=== PATIENT | female | born 1965 | race Caucasian/White ===

== ENCOUNTER 2020-06-03 15:49 | Outpatient (RCR) | payer MEDICARE, SELFPAY ==
[2018-05-27 17:47] VITALS: BMI 31.4
[2020-06-03] MEDS: COVID-19 VACC, MRNA(PFIZER)/PF 30 MCG/0.3 ML SYRINGE IM (13:52)
[2020-06-24] MEDS: COVID-19 VACC, MRNA(PFIZER)/PF 30 MCG/0.3 ML SYRINGE IM (12:35)
== END 2020-06-03 23:59 ==
LOC: IMMUN 15:49
PROVIDERS: PCP Family Medicine; Referring Provider Family Medicine; Visit Provider Family Medicine
DX: Z23 Encounter for immunization (principal)
CPT/HCPCS: 0001A; 0002A; 91300

== ENCOUNTER → 2020-06-04 12:02 | Outpatient (CLI) | payer SELFPAY ==
[2018-05-27 17:47] VITALS: BMI 31.4
[2020-06-04 10:19] LABS: Absolute Lymphocyte Count 1.27 X10^3/uL (0.83-4.51); Absolute Neutrophil Count 1.9 X10^3/uL (2.0-7.7); Basophil# 0.03 X10^3/uL; Basophil% 0.8 % (0-1); Eosinophil# 0.22 X10^3/uL; Eosinophils% 5.9 % (0-5); Hematocrit 38.1 % (37-47); Hemoglobin 12.3 g/dL (12.0-15.0); Lymphocyte # 1.27 X10^3/ul (4.0); Lymphocyte % 33.9 % (19-41); Mean Corp Hgb Conc 32.3 g/dL (32-36); Mean Corpuscular Volume 89.9 fL (81-99); Mean Platelet Vol. 9.3 fl (6.2-12.0); Monocyte# 0.34 X10^3/uL; Monocyte% 9.1 % (0-10); NRBC Flagged by Analyzer 0 % (0-5); Neutrophil # 1.88 X10^3/uL (2.7-7.7); Platelet Count 356 K/mm3 (150-450); RBC Distribution Width CV 12.5 % (11.6-14.6); RBC Distribution Width SD 41.4 fl (35.1-43.9); Red Blood Count 4.24 M/mm3 (4.2-5.4); White Blood Count 3.8 K/mm3 (4.4-11.0)
[2020-06-04 11:00] LABS: ALB/GLOB Ratio 0.9 RATIO (0.9-2.4); AST(SGOT) 29 U/L (15-37); Alanine Aminotransfer ALT/SGPT 45 U/L (13-56); Albumin, Serum 3.6 g/dL (3.2-5.0); Alkaline Phosphatase 70 U/L (45-117); Anion Gap 7 (5-15); BUN 11 mg/dL (7-18); BUN/Creat Ratio 15.8 RATIO (10-20); Calcium,Total 8.9 mg/dL (8.5-10.1); Chloride 106 mmol/L (98-107); Cholesterol 223 mg/dL (200); EST Glomerular Filtration Rate 93 mL/min (>60); Est Glom Filt Rate - Afr Amer 112 mL/min (>60); Globulin 3.8 g/dL (2.2-4.2); Glucose 89 mg/dL (74-106); High Density Lipoprotein 93 mg/dL; Potassium 3.8 mmol/L (3.5-5.1); Protein, Total 7.4 g/dL (6.4-8.2); Sodium Level 141 mmol/L (136-145); Triglycerides 84 mg/dL; Very Low Density Lipoprotein 17 mg/dL (5-40)
--- NOTE | 2020-06-04 12:07 | BI_ITS ---
MAMMOGRAPHY - BILATERAL SCREENING REASON FOR EXAM: Female, 55 years old. Routine annual screening examination. PERTINENT HISTORY: Non-contributory. TECHNIQUE: Digital bilateral breast mirta (3D mammographic acquisition) in the CC and MLO projections. 2-D mediolateral oblique (MLO) and craniocaudad (CC) views of both breasts were obtained. CAD: Full Field Digital Mammography with Computer Added Detection was performed. COMPARISON: Comparison is made with prior study dated 03/08/2017 and 01/29/2015. FINDINGS: Breast Composition: There are scattered areas of fibroglandular density. There are no dominant masses or suspicious calcifications. No other significant abnormalities are identified. There has been no significant change since the prior study. BI/SCRN MAMM (CAD)W/MIRTA BILAT IMPRESSION: Stable bilateral screening mammogram. Yearly follow-up mammogram recommended. (A) ASSESSMENT CATEGORY: BIRADS Category 1: Negative. A letter regarding these results will be sent to the patient by the facility within 30 days. Approximately 10% of breast cancers are not detected by mammography. A normal mammogram should not delay biopsy of a clinically suspicious abnormality. [id number] Electronically Signed: Donnell Sales MD at 13:46 EDT , Service support ,
== END ==
PROVIDERS: PCP Family Medicine; Referring Provider Family Medicine; Visit Provider Family Medicine
DX: Z12.31 Encounter for screening mammogram for malignant neoplasm of breast (principal); Z00.00 Encounter for general adult medical examination without abnormal findings
CPT/HCPCS: 36415; 77063; 77067; 80053; 80061; 85025

== ENCOUNTER 2020-08-05 15:00 | Outpatient (RCR) | payer SELFPAY ==
[2018-05-27 17:47] VITALS: BMI 31.4
== END 2020-08-16 23:59 ==
LOC: NS 15:00
PROVIDERS: PCP Family Medicine
DX: E66.9 Obesity, unspecified (principal)
CPT/HCPCS: 97802; 97803

== ENCOUNTER 2020-09-07 14:00 | Outpatient (RCR) | payer SELFPAY ==
[2018-05-27 17:47] VITALS: BMI 31.4
== END 2020-09-15 23:59 ==
LOC: NS 14:00
PROVIDERS: PCP Family Medicine
DX: Z71.3 Dietary counseling and surveillance (principal)
CPT/HCPCS: 97803

== ENCOUNTER 2020-09-21 08:09 | Outpatient (RCR) | payer SELFPAY ==
[2020-09-13 11:30] VITALS: BMI 31.4
== END 2020-09-21 23:59 | disposition home or self-care (01) ==
LOC: NS 08:09
PROVIDERS: PCP Family Medicine
DX: Z71.3 Dietary counseling and surveillance (principal)
CPT/HCPCS: 97803

== ENCOUNTER 2022-03-09 08:29 | Emergency (ER) | payer SELFPAY ==
[2022-03-09 08:30] VITALS: BP 137/94; PULSE 86; RESP 18; TEMP 37.4; O2SAT 96; BMI 32.4
--- NOTE | 2022-03-09 09:15 | ED.VIS.GI ---
HPI HPI - GI History of Present Illness Chief Complaint: Nausea/Vomiting Detail of Chief Complaint: Nausea, vomiting and diarrhea today. URI symptoms for 1 to 2 weeks. Informant: patient and spouse/S.O. Nausea/Vomiting/Emesis GI Symptom: Positive for Nausea and Vomiting Onset: Today and Yesterday Severity: Mild Diarrhea/Melena/Hematochezia GI Symptom: Positive for Diarrhea; Negative for Melena or Hematochezia Associated Symptoms Associated Symptoms: Negative for Dysuria or Frequency Narrative Narrative: This is-year-old female no seen past medical history. No new medications. No recent hospitalization. 7 she had URI symptoms for last 2 weeks. She has developed a fever nausea vomiting diarrhea the last 24 to 36 hours. No significant abdominal pain. No dysuria. States when she gets this way she often gets dehydrated so they came in. Prior similar symptoms: Yes Recent Illness/Hospitalization: No PFSH PFSH Medical History Allergic conjunctivitis Contact dermatitis due to poison sonya history of broken ankle Home Medications ondansetron 4 mg disintegrating tablet 4 mg PO Q6H PRN nausea and vomiting #7 tabs 03/09/22 [Rx Last Taken Unknown] Allergy/AdvReac Type Severity Reaction Status Date / Time No Known Allergies Allergy Unverified 03/09/22 08:29 Social History Smoking Status: Never smoker alcohol intake: never ROS ROS ED ROS Narrative Nausea, vomiting and diarrhea. URI symptoms. Review of Systems ROS Unobtainable: Denies due to encephalopathy Constitutional Constitutional ED: Reports chills and fever(s) ENT ENT ED: Denies ear pain Cardiovascular Cardiovascular: Denies chest pain or palpitations Respiratory/Chest Respiratory/Chest: Reports cough; Denies dyspnea Gastrointestinal Gastrointestinal: Reports diarrhea, nausea and vomiting; Denies abdominal pain, constipation or melena Genitourinary Genitourinary ED: Denies dysuria or hematuria Musculoskeletal Musculoskeletal: Denies arthralgias Integumentary Denies abscess Neurologic Neurologic: Denies headache(s) Psychiatric Psychiatric: Denies anxiety Endocrine Endocrinology: Denies polydipsia Hematologic/Lymphatic Hematologic/Lymphatic: Denies easy bleeding Allergic/Immunologic Allergic/Immunologic ED: Denies mouth swelling or tongue swelling EXAM Physical Exam Narrative Exam Narrative: 69 female no acute distress. Vital signs stable. Temperature nine 9.4. She does not look septic or toxic. Pulse ox 96% on room air no hypoxia. H EENT exam unremarkable. Neck nontender no lymphadenopathy. Lungs clear to auscultation bilaterally. Heart regular rhythm rate about 85 no murmur. Abdomen soft nontender normal bowel sounds no peritoneal signs. No distention. Moving all 4 extremities. Calves are nontender without edema. Neurologically she is awake and alert. Const Vital Signs: 03/09/22 08:30 03/09/22 10:29 Temperature 99.4 F H Temperature Source Temporal Pulse Rate 86 72 Respiratory Rate 18 18 Blood Pressure 137/94 H 113/70 Blood Pressure Mean 108 84 Pulse Ox 96 95 Oxygen Delivery Method Room Air Room Air Positive well nourished and well developed; Negative for cachectic, contractures or unkempt General Appearance ED: well developed and NAD; Negative for unkempt, cachectic, contractures or pallor Nutritional Appearance: Negative for cachectic HEENT Reports moist mucous membranes; Denies dry mucous membranes normocephalic; Negative for atraumatic, trauma or tenderness Mouth ED: No dry mucous membranes Mouth: No dry mucous membranes Eyes PERRL and EOMs intact bilaterally General Eye ED: Negative for pale conjunctiva or scleral icterus Neck no lymphadenopathy, supple and no JVD General: Negative for tenderness Carotids: Negative for other Lymph Lymphatic: Negative for other Resp normal respiratory effort and clear to auscultation bilaterally Effort and Inspection: Negative for respiratory distress or retractions Auscultation: Negative for rales, rhonchi or wheezes Cardio regular rate, regular rhythm, S1 normal heart sound, S2 normal heart sound and no murmurs Rate: Negative for bradycardia or tachycardic Rhythm: Negative for abnormal rhythm GI non-tender, non-distended and no masses Inspection: Negative for abdominal distention Auscultation: normoactive bowel sounds Palpation: soft; Negative for tender or guarding Back/Spine no CVA tenderness General Back: Negative for CVA tenderness Cervical Spine: Negative for cervical spine tenderness Thoracic Spine / Upper Back: Negative for thoracic spinal tenderness Lumbar Spine / Lower Back: Negative for lumbar spinal tenderness Coccyx: Negative for other Extremity full ROM General Extremety ED: Negative for edema or tenderness General Extremity: Negative for edema Neuro CN's II-XII intact bilaterally and moves all extremities Sensorium / Orientation: alert, oriented to person, oriented to place and oriented to time; Negative for orientation impaired, confused, lethargic or stuporous Motor Exam: strength 5/5 throughout Psych Appearance: Negative for unkempt Attitude: No agitated Mood & Affect: Negative for depressed, anxious or tearful Skin no wounds General Skin Exam: Negative for jaundice or pallor Lesions: no lesions Rashes: no rashes Trauma: Negative for abrasion Nails: Negative for discolored MDM MDM MDM Narrative Medical decision making narrative: 56-year-old suspect viral syndrome possibly influenza. Nausea, vomiting diarrhea. Treated with IV fluids. IV Zofran for nausea. IV Toradol for her headache. Screening labs and an influenza test will be obtained. Her exam is pretty benign. Repeat exam at 12:40 PM patient doing well. Positive p.o. fluids. Feels improved after IV Zofran and IV fluids. She and her are currently discharged home. I went over the test results with them. A prescription for Zofran to be sent to her pharmacy. Lab Data Attestation: I reviewed the patient's lab results. Lab results narrative: Influenza A positive. CBC shows white count 3.3. H&H of 13 and 39. Electrolytes show a gap of 4 normal BUN of 7 creatinine 0.77 glucose 129. Labs: Laboratory Results - last 24 hr 03/09/22 03/09/22 09:25 09:25 WBC 3.3 L RBC 4.47 Hgb 13.0 Hct 39.7 MCV 88.8 MCH 29.1 MCHC 32.7 RDW Std Deviation 40.5 RDW Coeff of Agnieszka 12.4 Plt Count 253 MPV 8.8 Immature Gran % (Auto) 0.000 Neut % (Auto) 82.3 H Lymph % (Auto) 9.[address] [place] % (Auto) 8.1 Eos % (Auto) 0.0 Baso % (Auto) 0.3 Absolute Neuts (auto) 2.7 Absolute Lymphs (auto) 0.31 L Nucleated RBC % 0 Sodium 139 Potassium 3.7 Chloride 108 H Carbon Dioxide 27.0 Anion Gap 4 L BUN 7 Creatinine 0.77 Estim Creat Clear Calc 75.46 Est GFR (MDRD) Af Amer 99 Est GFR (MDRD) Non-Af 82 BUN/Creatinine Ratio 9.1 L Glucose 129 H Calcium 8.9 Discharge Plan Triage Chief Complaint: Nausea/Vomiting ED Provider: Bernardo Torres Dx/Rx/DC Orders Clinical Impression: Influenza A, Nausea & vomiting Instructions: ED Influenza (Adult) Prescriptions: New ondansetron 4 mg tablet,disintegrating 4 mg PO Q6H PRN (Reason: nausea and vomiting) Qty: 7 0RF Primary Care Provider: Johan Armstrong Referrals: Johan Armstrong MD [Primary Care Provider] - 1 Week if not improving Activity Restrictions/Additional Instructions: Plenty of fluids and rest. Water, 7-Up and Gatorade. Increase your diet slowly as tolerated. Zofran as needed for nausea you may dissolve on your tongue or swallow it. If you do not need to take it at all. Tylenol as needed for fever and body aches. Follow-up with your doctor if not improving or return if worse. Disposition Disposition: Home, Self Care
[2022-03-09] MEDS: 0.9% Normal Saline 1,000 ML 1000 ML IV (09:31)
[2022-03-09] MEDS: Ondansetron 4 MG/2 ML Vial IV (09:31)
[2022-03-09] MEDS: Ketorolac 30 MG/ML Syringe IV (09:31)
[2022-03-09 09:35] LABS: Absolute Lymphocyte Count 0.31 X10^3/uL (0.83-4.51); Absolute Neutrophil Count 2.7 X10^3/uL (2.0-7.7); Basophil# 0.01 X10^3/uL; Basophil% 0.3 % (0-1); Hematocrit 39.7 % (37-47); Lymphocyte # 0.31 X10^3/ul (0.83-4.51); Lymphocyte % 9.3 % (19-41); Mean Corp Hgb Conc 32.7 g/dL (32-36); Mean Corpuscular Hgb 29.1 pg (27.0-32.0); Mean Corpuscular Volume 88.8 fL (81-99); Mean Platelet Vol. 8.8 fl (6.2-12.0); Monocyte# 0.27 X10^3/uL; Monocyte% 8.1 % (0-10); NRBC Flagged by Analyzer 0 % (0-5); Neutrophil # 2.74 X10^3/uL (2.7-7.7); Neutrophil % 82.3 % (47-70); POSITIVE DIFFERENTIAL YES; Platelet Count 253 K/mm3 (150-450); RBC Distribution Width CV 12.4 % (11.6-14.6); RBC Distribution Width SD 40.5 fl (35.1-43.9); Red Blood Count 4.47 M/mm3 (4.2-5.4); White Blood Count 3.3 K/mm3 (4.4-11.0)
[2022-03-09 09:42] LABS: Differential Indicated SCAN CRITERIA MET
[2022-03-09 09:44] LABS: Anion Gap 4 (5-15); BUN 7 mg/dL (7-18); BUN/Creat Ratio 9.1 RATIO (10-20); Calcium,Total 8.9 mg/dL (8.5-10.1); Chloride 108 mmol/L (98-107); Creatinine, Serum 0.77 mg/dL (0.55-1.02); EST Glomerular Filtration Rate 82 mL/min (>60); Est Glom Filt Rate - Afr Amer 99 mL/min (>60); Estimated Creatinine Clearance 75.46 ml/min; Glucose 129 mg/dL (74-106); Potassium 3.7 mmol/L (3.5-5.1); Sodium Level 139 mmol/L (136-145)
[2022-03-09 10:29] VITALS: BP 113/70; PULSE 72; RESP 18; O2SAT 95
[2022-03-09 12:00] VITALS: BP 112/71; PULSE 73; RESP 16; O2SAT 96
[2022-03-09 12:47] VITALS: BP 119/75; PULSE 77; RESP 16; TEMP 36.8; O2SAT 96
[2022-03-10 14:08] LABS: Pathologist Review Reviewed
== END 2022-03-09 12:53 | disposition home or self-care (01) ==
PROVIDERS: Emergency Provider Emergency Medicine; PCP Family Medicine; Visit Provider Emergency Medicine
DX: J10.2 Influenza due to other identified influenza virus with gastrointestinal manifestations (principal)
CPT/HCPCS: 80048; 85025; 87804; 96361; 96374; 96375; 99282; J7030; A4216; J2405

== ENCOUNTER 2023-04-06 19:57 | Emergency (ER) | payer SELFPAY ==
[2023-04-06 19:59] VITALS: BP 130/74; PULSE 83; RESP 28; TEMP 36.3; O2SAT 100
[2023-04-06 20:01] VITALS: BP 130/74; PULSE 83; RESP 28; TEMP 36.3; O2SAT 100
[2023-04-06 20:10] VITALS: BMI 31.6
--- NOTE | 2023-04-06 20:28 | EX.ED.VIS.UR ---
HPI HPI - URI History of Present Illness Chief Complaint: Nausea/Vomiting Narrative Narrative: 57-year-old female presenting with nausea, vomiting, body aches, chills. Patient states she was around her sick grandson 3 days ago and picked him up to drop him off at the family's house because he had flulike symptoms. Patient developed her symptoms today. She has been vomiting today. She states she is retched so hard that she hurt her lower back. She has a history of back problems in the past. Denies any direct trauma. No loss of bladder or bowel control. No saddle anesthesia/paresthesia. Patient has not had a known fever at home. Patient has tried Zofran at home but unable to hold it down. This is not helping her vomiting. Her grandson had not been tested for anything and recovered without testing. [facility] Medical History Allergic conjunctivitis Contact dermatitis due to poison sonya history of broken ankle Home Medications benzonatate 100 mg capsule 200 mg (2 x 100 mg) PO TID PRN cough #30 caps 05/09/22 [Rx Last Taken Unknown] cyclobenzaprine 10 mg tablet 10 mg PO TID PRN Muscle Spasm #20 TABLETS 04/06/23 [Rx Last Taken Unknown] dicyclomine 10 mg capsule 10 mg PO TID PRN abdominal pain #20 caps 04/06/23 [Rx Last Taken Unknown] ondansetron 4 mg disintegrating tablet 4 mg PO Q8H PRN PRN Nausea #14 tabs 04/06/23 [Rx Last Taken Unknown] promethazine 25 mg tablet 25 mg PO TID PRN nausea and vomiting #30 tabs 04/06/23 [Rx Last Taken Unknown] Allergy/AdvReac Type Severity Reaction Status Date / Time No Known Allergies Allergy Verified 04/06/23 19:58 Surgical History History of cholecystectomy Social History Smoking Status: Never smoker alcohol intake: never EXAM Physical Exam Const Vital Signs: 04/06/23 19:59 04/06/23 20:01 Temperature 97.4 F L 97.4 F L Temperature Source Temporal Temporal Pulse Rate 83 83 Respiratory Rate 28 H 28 H Blood Pressure 130/74 H 130/74 H Blood Pressure Mean 92 92 Pulse Ox 100 100 Oxygen Delivery Method Room Air Room Air Positive well nourished General Appearance ED: Negative for pallor HEENT Reports normocephalic Eyes PERRL and EOMs intact bilaterally Chest Wall inspection of chest normal and palpation of chest normal Resp normal respiratory effort and clear to auscultation bilaterally Auscultation: Negative for rales, rhonchi or wheezes Cardio regular rate and regular rhythm GI normal to inspection, nondistended, normoactive bowel sounds and non-distended Auscultation: normoactive bowel sounds Palpation: soft Narrative: Deferred Back/Spine Back/Spine Narrative: Left lumbar paraspinal musculature tenderness. No midline spinal deformity, tenderness, step-off. Extremity General Extremety ED: Negative for edema or tenderness General Extremity: Negative for edema Neuro oriented x3 and CN's II-XII intact bilaterally Sensorium / Orientation: alert Motor Exam: strength 5/5 throughout Psych mental status grossly normal Attitude: No agitated Skin no rashes or lesions noted and no wounds General Skin Exam: Negative for jaundice or pallor MDM MDM MDM Narrative Medical decision making narrative: Patient presenting with viral syndrome. Likely contracted from her grandson who had a viral syndrome. Patient states Zofran not working. IV line was established and she is given Toradol through the IV. She is given a IM shot of Reglan and I IM shot of Norflex for her lower back pain. She does appear to be tender in the left lumbar paraspinal musculature. Differential includes COVID, influenza, RSV, other viral etiology, dehydration, electrolyte abnormalities, lumbar strain, UTI, kidney stone. CBC and BMP were obtained. Urinalysis to assess for UTI. hCG to assess for . Patient given a liter normal saline. Will reevaluate. Reevaluation 8:50 PM patient is doing better. She states her pain and her nausea are better. She still feels some cramping in her stomach. Discussed normal blood work and negative hCG. COVID, influenza, RSV all negative. Patient reevaluated again at 10:15 PM and is sleeping comfortably. Urinalysis is negative for infection. Patient will be discharged home with Zofran and Phenergan which she can alternate. She is given Bentyl and cyclobenzaprine for her lower back. Recommend drink plenty fluids. Patient and wish to have the medicines filled here at the hospital before being discharged. These were sent to the pharmacy. Impression: 1. Viral syndrome 2. Nausea/vomiting 3. Diarrhea 4. Lumbar strain Lab Data Attestation: I reviewed the patient's lab results. Labs: Laboratory Results - last 24 hr 04/06/23 04/06/23 20:20 21:20 WBC 7.1 RBC 4.93 Hgb 14.2 Hct 42.3 MCV 85.8 MCH 28.8 MCHC 33.6 RDW Std Deviation 38.6 RDW Coeff of Agnieszka 12.3 Plt Count 376 MPV 9.1 Immature Gran % (Auto) 0.400 Neut % (Auto) 93.3 H Lymph % (Auto) 3.5 L [place] % (Auto) 2.2 Eos % (Auto) 0.3 Baso % (Auto) 0.3 Absolute Neuts (auto) 6.7 Absolute Lymphs (auto) 0.25 L Nucleated RBC % 0 Differential Comment SCANNED Sodium 141 Potassium 3.4 L Chloride 113 H Carbon Dioxide 22.0 Anion Gap 6 BUN 11 Creatinine 0.86 Estim Creat Clear Calc 80.14 Est GFR (MDRD) Af Amer 87 Est GFR (MDRD) Non-Af 72 BUN/Creatinine Ratio 12.8 Glucose 120 H Calcium 9.5 Serum , Qual NEGATIVE Urine Color Yellow Urine Clarity Clear Urine pH 8.0 Ur Specific [place] 1.015 Urine Protein 30 H Urine Glucose (UA) Normal Urine Ketones 150 A* Urine Occult Blood Negative Urine Nitrite Negative Urine Bilirubin 1 H Urine Urobilinogen Normal Ur Leukocyte Esterase 500 H Urine RBC 0-5 SEEN Urine WBC 25-50 SEEN Ur Squamous Epith Cells 0-5 SEEN Urine Bacteria 0 SEEN Urine Mucus RARE Discharge Plan Triage Chief Complaint: Nausea/Vomiting ED Provider: Arnold Alejandra Dx/Rx/DC Orders Instructions: ED Back Sprain/Strain, ED Gastroenteritis, Viral (Adult) Prescriptions: New promethazine 25 mg tablet 25 mg PO TID PRN (Reason: nausea and vomiting) Qty: 30 0RF dicyclomine 10 mg capsule 10 mg PO TID PRN (Reason: abdominal pain) Qty: 20 0RF ondansetron 4 mg tablet,disintegrating 4 mg PO Q8H PRN PRN (Reason: Nausea) Qty: 14 0RF cyclobenzaprine 10 mg tablet 10 mg PO TID PRN (Reason: Muscle Spasm) Qty: 20 0RF No Action benzonatate 100 mg capsule 200 mg PO TID PRN (Reason: cough) Qty: 30 0RF Primary Care Provider: Johan Armstrong Referrals: Johan Armstrong MD [Primary Care Provider] - Disposition Disposition: Home, Self Care
[2023-04-06 20:34] LABS: Absolute Lymphocyte Count 0.25 X10^3/uL (0.83-4.51); Absolute Neutrophil Count 6.7 X10^3/uL (2.0-7.7); Basophil# 0.02 X10^3/uL; Basophil% 0.3 % (0-1); Eosinophil# 0.02 X10^3/uL; Eosinophils% 0.3 % (0-5); Hematocrit 42.3 % (37-47); Hemoglobin 14.2 g/dL (12.0-15.0); Lymphocyte # 0.25 X10^3/ul (0.83-4.51); Lymphocyte % 3.5 % (19-41); Mean Corp Hgb Conc 33.6 g/dL (32-36); Mean Corpuscular Hgb 28.8 pg (27.0-32.0); Mean Corpuscular Volume 85.8 fL (81-99); Mean Platelet Vol. 9.1 fl (6.2-12.0); Monocyte# 0.16 X10^3/uL; Monocyte% 2.2 % (0-10); NRBC Flagged by Analyzer 0 % (0-5); Neutrophil # 6.65 X10^3/uL (2.7-7.7); Neutrophil % 93.3 % (47-70); POSITIVE DIFFERENTIAL YES; Platelet Count 376 K/mm3 (150-450); RBC Distribution Width CV 12.3 % (11.6-14.6); RBC Distribution Width SD 38.6 fl (35.1-43.9); Red Blood Count 4.93 M/mm3 (4.2-5.4); White Blood Count 7.1 K/mm3 (4.4-11.0)
[2023-04-06] MEDS: 0.9% Normal Saline (1000mL) 1,000 ML 1000 ML IV (20:36)
[2023-04-06] MEDS: Ketorolac 15 MG/ML Vial IV (20:36)
[2023-04-06] MEDS: Orphenadrine 60 MG/2 ML Ampul IM (20:37)
[2023-04-06] MEDS: proMETHazine 25 MG/ML Syringe 12.5 MG IM (20:37)
--- OUTSIDE RECORDS SUMMARY | 2023-04-06 20:37 | XMS RPT_ITS | CCD ---
Author Name Unknown Address [address] [place] [address] Organization [facility] Care Team Providers Care Sizing Sprayer Name Role Phone Fausto Gibbons Unavailable Johan Chavez MD Primary Care Provider JOHAN CHAVEZ Primary Care Unavailab le KATHY, JOHAN SNYDER Primary Care Unavailab le KATHY, JHOAN SNYDER Referring Unavailab le KATHY, JOHAN SNYDER Referring Unavailab le KATHY, JOHAN SNYDER Primary Care Unavailab le KATHY, JOHAN SNYDER Referring Unavailab le KATHY, JOHAN SNYDER Primary Care Unavailab le KATHY, JOHAN SNYDER Attending Unavailab le KATHY, JOHAN SNYDER Primary Care Unavailab le KATHY, JOHAN SNYDER Attending Unavailab le KATHY, JOHAN SNYDER Primary Care Unavailab le Problems Active Problems Problem Classification Problem Date Documented Da te Episodic/Chronic Diseases of white blood cells (8 sources) Neutropenia; Translations: [Neutropenia, unspecified] Onset: 07-22-2009 07-22-2009 Chronic Unclassified (1 source) 6 Month Exam Onset: 03-05-2023 Past or Other Problems Problem Classification Problem Date Documented Date Episodic/Chronic Biliary tract disease (8 sources) Chronic cholecystitis with calculus; Translations: [Calculus of gallbladder with chronic cholecystitis without obstruction] Onset: 10-14-2012 10-14-2012 Episodic Deficiency and other anemia (8 sources) Anemia; Translations: [Anemia, unspecified] Onset: 07-22-2009 07-22-2009 Episodic Other screening for suspected conditions (not mental disorders or infectious disease) (13 sources) Patient encounter status; Translations: [Encounter for screening for lipoid disorders] Onset: 09-06-2022 Episodic Results Test Name Value Interpretation Reference Range Facil ity Vital Signs Date Time Vital Sign Value Performing Clinician Faci lity 09-06-2022 14:0400 Body height 168.9 cm Johan Chavez MD Work Phone: [facility] 09-06-2022 14:0400 Body temperature 96.91 [degF] Johan Chavez MD Work Phone: [facility] 09-06-2022 14:0400 Body weight 87 kg Johan Chavez MD Work Phone: [facility] 09-06-2022 14:19-0400 Diastolic blood pressure 80 mm[Hg] Johan Chavez MD Work Phone: [facility] 09-06-2022 14:0400 Heart rate 76 /min Johan Chavez MD Work Phone: [facility] 09-06-2022 14:0400 Respiratory rate 14 /min Johan Chavez MD Work Phone: [facility] 09-06-2022 14:19-0400 SaO2% (BldA) [Mass fraction] 98 % Johan Chavez MD Work Phone: [facility] 09-06-2022 14:040 Systolic blood pressure 110 mm[Hg] Johan Chavez MD Work Phone: [facility] Encounters Encounter Date Encounter Type Care Provider Facility Start: 03-05-2023 End: 03-05-2023 ambulatory JOHAN CHAVEZ Facility:[id number] Start: 01-23-2023 End: 01-23-2023 ambulatory JOHAN CHAVEZ Facility:[facility] Start: 11-14-2022 End: 11-14-2022 ambulatory JOHAN CHAVEZ Facility:[facility] Start: 09-26-2022 Telephone encounter Johan Chavez MD Work Phone: [facility] Procedures Date Procedure Procedure Detail Performing Clinician Start: 09-22-2022 Mammography Johan corbett MD Work Phone: Plan of Treatment Date Care Activity Detail Author Start: 09-27-2027 LIPID SCREEN LIPID SCREEN [facility] Start: 09-26-2025 DIABETES SCREEN DIABETES SCREEN [facility] Start: 09-20-2025 COLOGUARD (FIT-DNA) COLOGUARD (FIT-D NA) [facility] Start: 09-20-2025 COLORECTAL CANCER SCREENING COLORECTAL CANCER SCREENING [facility] Start: 06-23-2025 PAP TESTING PAP TESTING [facility] Start: 09-23-2023 Mammography MAMMOGRAM [facility] Start: 11-17-2022 Influenza vaccination C [facility] Start: 09-06-2022 End: 11-06-2022 CBC W Auto Differential panel - Blood CBC + DIFF Lab Routine Screening for deficiency anemia Expected: 09/06/2022, Expires: 11/06/2022 [facility] Work Phone: Immunizations Immunization Date Immunization Notes Care Provider Mo bautista 06-24-2020 COVID-19 original vaccine, age 12+ yr, monovalent (PFIZER-BIONTECH - PURPLE TOP) Johan Chavez MD Work Phone: [facility] 06-03-2020 COVID-19 original vaccine, age 12+ yr, monovalent (PFIZER-BIONTECH - PURPLE TOP) Johan Chavez MD Work Phone: [facility] 02-05-2020 Influenza, injectabl e, Madin Benton Canine Kidney, preservative free, quadrivalent Johan Chavez MD Work Phone: [facility] 11-04-2004 hepatitis A and hepatitis B vaccine Johan Chavez MD Work Phone: [facility] 05-17-2004 hepatitis A and hepatitis B vaccine Johan Chavez MD Work Phone: [facility] 04-01-2004 hepatitis A and hepatitis B vaccine Johan Chavez MD Work Phone: [facility] Payers Date Payer Category Payer Unknown [employer]UDDHISM SELF P AY B[employer] SELF PAY GENERIC [id number] 2022-Present Other [id number] 2022 Unknown [id number] Social History Date Type Detail Facility Start: 09-06-2022 Tobacco smoking stat us NHIS Never smoked tobacco [facility] History of tobacco use Passive smoker [facility] Start: 09-06-2022 Tobacco use and exposure Smoke less tobacco non-user [facility] Start: 09-06-2022 Alcohol intake Ex-drinker (finding) [facility] Start: 09-06-2022 History SDOH Alcohol Frequency 1 [facility] Start: 09-06-2022 History SDOH Alcohol Std Drinks 0 [facility] Start: 09-06-2022 History SDOH Social Connections Phone 5 [facility] Start: 09-06-2022 History SDOH Social Connections Get Together 2 [facility] Start: 09-06-2022 History SDOH Social Connections Islam 3 [facility] Start: 09-06-2022 History SDOH Physica l Activity MPS 12 [facility] Start: 09-06-2022 Education 21 [facility] Start: 1965 Sex Assigned At Not on file C [facility] Start: 09-06-2022 History of Social function [facility] Start: 09-06-2022 Social connection an d isolation panel [facility] Do you belong to any clubs or organizations such as muslim groups, unions, fraternal or athletic groups, or school groups? Yes [facility] Are you now , , , , never or living with a partner? [facility] How often to you hav e a drink containing alcohol? Never [facility] How many standard dr inks containing alcohol do you have on a typical day? Patient does not drink [facility] Do you feel stress - tense, restless, nervous, or anxious, or unable to sleep at night because your mind is troubled all the time - these days [OSQ] Not at all [facility] (I/We) worried whekari er (my/our) food would run out before (I/we) got money to buy more. Never true [facility] In the past 12 month s, was there a time when you were not able to pay the mortgage or rent on time? No [facility] Start: 09-06-2022 Gender identity Identifies as female gender (finding) [facility] Start: 09-06-2022 Sexual orientation Heterosexual (naldo peterson) [facility] Clinical Notes 09-06-2022 to 03-10-2023 Telephone Encounter - Johan Chavez MD - 09/26/2022 1:10 PM EDTTelephone Encounter - Deidra Rush LPN - 09/26/2022 9:31 AM EDTTelephone Encounter - Jesus Turner - 09/25/2022 3:42 PM EDT Note Date & Type Note Facility 03-10-2023 Note HNO ID: [id number] Author: Johan Chavez MD Service: ? Author Type: Physician Type: Progress Notes Filed: 03/10/2023 2:41 PM Note Text: Subjective Jacqueline Serra is a 57 year old female. Jacqueline presents today for follow-up. Her chronic medical problems are stable. She has no new complaints today. She is feeling well. Review of Systems Constitutional: Negative. HENT: Negative. Eyes: Negative. Respiratory: Negative. Cardiovascular: Negative. Gastrointestinal: Negative. Endocrine: Negative. Genitourinary: Negative. Musculoskeletal: Negative. Skin: Negative. Allergic/Immunologic: Negative. Neurological: Negative. Hematological: Negative. Psychiatric/Behavioral: Negative. PAST SURGICAL HISTORY Procedure Laterality Date LAPAROSCOPY SURG CHOLECYSTECTOMY 10/01/12 History reviewed. No pertinent past medical history. FAMILY HISTORY Problem Relation Age of Onset Heart Attack Father Prostate Cancer Brother Social History Tobacco Use Smoking status: Never Passive exposure: Past Smokeless tobacco: Never Vaping Use Vaping Use: Never used Substance Use Topics Alcohol use: Not Currently Drug use: Never ALLERGIES No Known Allergies MEDICATIONS: No prescriptions on file. Allergies, past surgical history, family history and past medical history were reviewed per this encounter. Medications were reviewed and verified. Objective BP 122/78 (BP Site: Left Arm, BP Position: Sitting, BP Cuff Size: Large Adult) Pulse 71 Temp 36.8 ?C (98.3 ?F) (Temporal) Resp 16 Ht 168.9 cm (5' 6.5 ) Wt 92.3 kg (203 lb 8 oz) SpO2 97% BMI 32.35 kg/m? Physical Exam Vitals reviewed. Constitutional: Appearance: Normal appearance. HENT: Head: Normocephalic and atraumatic. Nose: Nose normal. Eyes: Extraocular Movements: Extraocular movements intact. Pupils: Pupils are equal, round, and reactive to light. Cardiovascular: Rate and Rhythm: Normal rate and regular rhythm. Pulmonary: Effort: Pulmonary effort is normal. Breath sounds: Normal breath sounds. Abdominal: General: Bowel sounds are normal. Palpations: Abdomen is soft. Musculoskeletal: General: Normal range of motion. Cervical back: Normal range of motion and neck supple. Skin: General: Skin is warm and dry. Capillary Refill: Capillary refill takes less than 2 seconds. Neurological: General: No focal deficit present. Mental Status: She is alert and oriented to person, place, and time. Mental status is at baseline. Psychiatric: Mood and Affect: Mood normal. Behavior: Behavior normal. Assessment and Plan Encounter Diagnosis ICD-10-CM 1. Migraine headaches G43.909 2. Anemia, unspecified type D64.9 3. 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 Continue increased activity and exercise. Follow-up in 6 months for wellness visit. Johan Chavez MD [facility] 03-05-2023 Note HNO ID: [id number] Author: Va Luke LPN Service: ? Author Type: LICENSED NURSE Type: Progress Notes Filed: 03/10/2023 2:41 PM Note Text: Patient is in office today for 6 month exam. CHANEL: 09-06-2022 Wellness There are no medications currently listed for patient. Patient denies any concerns at this time. Va Luke LPN March 05, 2023 3:57 PM [facility] 11-14-2022 Note HNO ID: [id number] Author: Milvia Pickard Mammo Tech Service: ? Author Type: Department Director Type: Progress Notes Filed: 11/14/2022 1:41 PM Note Text: Radiology Service Progress Note PATIENT NAME: Jacqueline Serra DATE OF SERVICE: November 14, 2022 TIME: 1:19 PM PATIENT IDENTITY VERIFICATION COMPLETED USING TWO (2) IDENTIFIERS: Name and Date of confirmed by patient verbally. FALL SCREENING: Has the patient had 2 falls in the last year or 1 fall with injury or currently using an Ambulatory Assistive Device (Walker, Cane, Wheelchair, Crutches, etc.)? No PATIENT GENDER DATA: Female. status: : No status: NO. PATIENT RELEVANT IMPLANT DATA REVIEWED: Not Applicable RADIOLOGY DEPARTMENT: Mammography PERIPHERAL IV DATA: Not applicable SIGNED BY: Milad Weemso Tech November 14, 2022 1:19 PM [facility] 09-26-2022 Miscellaneous Notes ordered Mammogram from 09-22-2022 needs additional imaging. Patient had Mammogram completed at [facility]. They stated they will not do testing until order received by you. Deidra uRsh LPN September 26, 2022 9:33 AM documented in this encounter [facility] 09-26-2022 Miscellaneous Notes signed Please sign attached orders for patient to receive additional imaging from Mammogram results Patient requesting orders to be sent to [facility] This nurse informed patient that orders will be sent once signed by Dr. Chavez Patient verbalized understanding, thanked nurse for information. Deidra Rush LPN September 26, 2022 11:45 AM documented in this encounter [facility] 09-26-2022 Miscellaneous Notes Katiana from [facility] called asking for additional orders due to abnormal mammogram. [facility] does not have standing orders. Orders needed as follows: Right diagnostic mammogram Right breast [employer] Katiana call back # [phone] Katiana said she can get the order from the computer chart,however,order should be faxed as well to insure they have what they need Thank you, Jacqueline Cole LPN September 26, 2022 11:33 AM documented in this encounter [facility] 09-25-2022 Miscellaneous Notes Patient notified of result information on My Chart. Notification will be sent to this nurse if message has not been read within 2 days. Patient will be contacted by another form of communication if notification of not reading My Chart message is received. Deidra Rush LPN September 25, 2022 5:28 PM ----- Message from Johan Chavez MD sent at 09/25/2022 4:25 PM EDT ----- Cologuard negative documented in this encounter [facility] 09-25-2022 Miscellaneous Notes Patient called to schedule callback mammo documented in this encounter [facility] 09-25-2022 Miscellaneous Notes Patient was unaware additional imaging needed. Patient informed verbalized understanding and will call to schedule. Jacqueline Cole LPN September 25, 2022 11:20 AM ----- Message from Johan Chavez MD sent at 09/24/2022 9:20 PM EDT ----- Check to see if patient has additional imaging scheduled documented in this encounter [facility] 09-22-2022 Miscellaneous Notes September 25, 2022 PID: [id number] Jacqueline Serra [address] [place] [address] Dear Ms. Serra, Your recent breast imaging exam on 09/22/2022 showed a possible finding that requires additional imaging studies for a complete evaluation. Most such findings are probably benign (not cancer). If you have a healthcare provider who ordered/prescribed your screening mammogram: Please call [phone] or [phone]: [phone] to schedule an appointment for your additional imaging (if you have not already done so). If you DO NOT have a healthcare provider (ie you did not have an order/prescription for your screening mammogram): Please call to schedule an appointment for your additional imaging (if you have not already done so). You must have an order/prescription from your physician when calling to schedule your appointment. If your order/prescription is not electronic, you must bring the hard copy with you on the day of your exam to avoid delays. Your imaging studies and reports are kept on file at [facility] as part of your permanent medical record, and are available for your continuing care. Thank you for allowing us to help in meeting your health care needs. Sincerely, Dr. Varner Interpreting Radiologist [facility] (Additional imaging) documented in this encounter [facility] 09-22-2022 Note HNO ID: [id number] Author: RT Tona(R) Service: Radiology Author Type: Department Director Type: Progress Notes Filed: 09/22/2022 8:33 AM Note Text: Radiology Service Progress Note PATIENT NAME: Jacqueline Serra DATE OF SERVICE: September 22, 2022 TIME: 8:33 AM PATIENT IDENTITY VERIFICATION COMPLETED USING TWO (2) IDENTIFIERS: Name and Date of confirmed by patient verbally. FALL SCREENING: Has the patient had 2 falls in the last year or 1 fall with injury or currently using an Ambulatory Assistive Device (Walker, Cane, Wheelchair, Crutches, etc.)? No PATIENT GENDER DATA: Female. status: : No status: NO. PATIENT RELEVANT IMPLANT DATA REVIEWED: Yes RADIOLOGY DEPARTMENT: Mammography PERIPHERAL IV DATA: Not applicable SIGNED BY: RT Tona(R) September 22, 2022 8:33 AM [facility] 09-06-2022 Note HNO ID: [id number] Author: Johan Chavez MD Service: ? Author Type: Physician Type: Progress Notes Filed: 09/06/2022 3:06 PM Note Text: This note was created using NoteWriter. Subjective Jacqueline Serra is a 57 year old female. Jacqueline presents today for her annual wellness exam. Review of Systems Constitutional: Negative. HENT: Negative. Eyes: Negative. Respiratory: Negative. Cardiovascular: Negative. Gastrointestinal: Negative. Endocrine: Negative. Genitourinary: Negative. Musculoskeletal: Negative. Skin: Negative. Allergic/Immunologic: Negative. Neurological: Negative. Hematological: Negative. Psychiatric/Behavioral: Negative. Objective BP 110/80 (BP Site: Right Arm, BP Position: Sitting) Pulse 76 Temp 36.1 ?C (96.9 ?F) (Temporal) Resp 14 Ht 168.9 cm (5' 6.5 ) Wt 87 kg (191 lb 12.8 oz) SpO2 98% BMI 30.49 kg/m? Physical Exam Vitals reviewed. Constitutional: Appearance: Normal appearance. HENT: Head: Normocephalic and atraumatic. Nose: Nose normal. Eyes: Extraocular Movements: Extraocular movements intact. Pupils: Pupils are equal, round, and reactive to light. Cardiovascular: Rate and Rhythm: Normal rate and regular rhythm. Pulmonary: Effort: Pulmonary effort is normal. Breath sounds: Normal breath sounds. Abdominal: General: Bowel sounds are normal. Palpations: Abdomen is soft. Musculoskeletal: General: Normal range of motion. Cervical back: Normal range of motion and neck supple. Skin: General: Skin is warm and dry. Capillary Refill: Capillary refill takes less than 2 seconds. Neurological: General: No focal deficit present. Mental Status: She is alert and oriented to person, place, and time. Mental status is at baseline. Psychiatric: Mood and Affect: Mood normal. Behavior: Behavior normal. Assessment and Plan Encounter Diagnosis ICD-10-CM 1. Wellness examination Z00.00 COMP METABOLIC PANEL 2. Lipid screening Z13.220 LIPID PANEL BASIC 3. Screening for deficiency anemia Z13.0 CBC + DIFF 4. Encounter for screening mammogram for malignant neoplasm of breast Z12.31 SURJIT SCREENING 5. Screening for colon cancer Z12.11 COLOGUARD Johan Chavez MD [facility] 09-06-2022 Note HNO ID: [id number] Author: Tere Hansen LPN Service: ? Author Type: LICENSED NURSE Type: Progress Notes Filed: 09/06/2022 3:06 PM Note Text: Patient in office today for an annual wellness exam. Jacqueline is having problems with her right ear, she has popping,she can't hear out of it as well as she use to, sometimes she gets wax occassionally Health Maintenance Due: HIV SCREENING---declined DTAP,TDAP,TD(1 - Tdap)---over 10 years ago----she would like this today HPV TESTING---declined MAMMOGRAM---due for this now LIPID SCREEN---due now DIABETES SCREEN---due now COLORECTAL CANCER SCREENING---Dr Gibbons 6-7 years SHINGRIX VACCINE(1 of 2)---she has questions about this COVID-19 VACCINE(3 - Booster for Pfizer series)---she is done getting these DEPRESSION ASSESSMENT--- done today and is negative Tere Hansen LPN September 06, 2022 2:12 PM [facility] 09-06-2022 History of Presen t illness Narrative This note was created using AnyCloudter. Subjective Jacqueline Serra is a 57 year old female. Jacqueline presents today for her annual wellness exam. Review of Systems Constitutional: Negative. HENT: Negative. Eyes: Negative. Respiratory: Negative. Cardiovascular: Negative. Gastrointestinal: Negative. Endocrine: Negative. Genitourinary: Negative. Musculoskeletal: Negative. Skin: Negative. Allergic/Immunologic: Negative. Neurological: Negative. Hematological: Negative. Psychiatric/Behavioral: Negative. Objective BP 110/80 (BP Site: Right Arm, BP Position: Sitting) Pulse 76 Temp 36.1 C (96.9 F) (Temporal) Resp 14 Ht 168.9 cm (5' 6.5 ) Wt 87 kg (191 lb 12.8 oz) SpO2 98% BMI 30.49 kg/m Physical Exam Vitals reviewed. Constitutional: Appearance: Normal appearance. HENT: Head: Normocephalic and atraumatic. Nose: Nose normal. Eyes: Extraocular Movements: Extraocular movements intact. Pupils: Pupils are equal, round, and reactive to light. Cardiovascular: Rate and Rhythm: Normal rate and regular rhythm. Pulmonary: Effort: Pulmonary effort is normal. Breath sounds: Normal breath sounds. Abdominal: General: Bowel sounds are normal. Palpations: Abdomen is soft. Musculoskeletal: General: Normal range of motion. Cervical back: Normal range of motion and neck supple. Skin: General: Skin is warm and dry. Capillary Refill: Capillary refill takes less than 2 seconds. Neurological: General: No focal deficit present. Mental Status: She is alert and oriented to person, place, and time. Mental status is at baseline. Psychiatric: Mood and Affect: Mood normal. Behavior: Behavior normal. Assessment and Plan Encounter Diagnosis ICD-10-CM 1. Wellness examination Z00.00 COMP METABOLIC PANEL 2. Lipid screening Z13.220 LIPID PANEL BASIC 3. Screening for deficiency anemia Z13.0 CBC + DIFF 4. Encounter for screening mammogram for malignant neoplasm of breast Z12.31 SURJIT SCREENING 5. Screening for colon cancer Z12.11 COLOGUARD Johan Chavez MD Patient in office today for an annual wellness exam. Jacqueline is having problems with her right ear, she has popping,she can't hear out of it as well as she use to, sometimes she gets wax occassionally Health Maintenance Due: HIV SCREENING---declined DTAP,TDAP,TD(1 - Tdap)---over 10 years ago----she would like this today HPV TESTING---declined MAMMOGRAM---due for this now LIPID SCREEN---due now DIABETES SCREEN---due now COLORECTAL CANCER SCREENING---Dr Gibbons 6-7 years SHINGRIX VACCINE(1 of 2)---she has questions about this COVID-19 VACCINE(3 - Booster for Pfizer series)---she is done getting these DEPRESSION ASSESSMENT--- done today and is negative Tere Hansen LPN September 06, 2022 2:12 PM documented in this encounter [facility] Abnormal [facility]ogram- Primary Abnormal mammogram, unspecified documented in this encounter [facility] for referral (narrative)* Diagnostic Procedure Only (Routine) - Pending Review Specialty Diagnoses / Procedures Referred By Zhao soliman Referred To Contact [facility] Diagnoses Encounter for screening mammogram for malignant neoplasm of breast Procedures SURJIT SCREENING SCREENING MAMMOGRAPHY BI 2-VIEW BREAST INC CAD Johan Chavez MD [address] [place] [address] [facility] [address] [place] [address] Referral ID Status Reason Start Date Expiration Date Visits Requested Visits Authorized [id number] Pending Review Auto-Generat ed Referral 09/06/2022 10/06/2023 1 1 [facility] for referral (narrative)* Diagnostic Procedure Only (Routine) - Pending Review Specialty Diagnoses / Procedures Referred By Zhao soliman Referred To Contact [facility] Diagnoses Abnormal mammogram Procedures US BREAST LTD RIGHT US BREAST UNI REAL TIME WITH IMAGE LIMITED Johan Chavez MD [address] [place] [address] [facility] [address] [address] Referral ID Status Reason Start Date Expiration Date Visits Requested Visits Authorized [id number] Pending Review Auto-Generat ed Referral 09/26/2022 10/26/2023 1 1 * Diagnostic Procedure Only (Routine) - Pending Review Specialty Diagnoses / Procedures Referred By Zhao soliman Referred To Contact [facility] Diagnoses Abnormal mammogram Procedures SURJIT DIAGNOSTIC RIGHT DIAGNOSTIC MAMMOGRAPHY COMPUTER-AIDED DETCJ UNI Johan Chavze MD [address] [place] [address] [facility] [address] [place] [address] Referral ID Status Reason Start Date Expiration Date Visits Requested Visits Authorized [id number] Pending Review Auto-Generat ed Referral 09/26/2022 10/26/2023 1 1 [facility] Summary Purpose Family History No Family History Records FoundNo Family History Records FoundNo Family History Records Found Advance Directives No Advanced Directives Records FoundNo Advanced Directives Records FoundNo Advanced Directives Records Found Additional Source Comments INFORMATION SOURCE (unrecogn ized section and content) DATE CREATED AUTHOR AUTHOR'S ORGANIZ ATION 01/24/2023 [facility] [facility] DATE CREATED AUTHOR AUTHOR'S ORGANIZ ATION 03/11/2023 [facility] nter Source Comments (unrecognize d section and content) In the event this informatio n is protected by the Federal Confidentiality of Alcohol and Drug Abuse Patient Records regulations: The Federal rules restrict any use of the information to criminally investigate or prosecute any alcohol or drug abuse patient.[facility] Hospital[facility] the event this information is protected by the Federal Confidentiality of Alcohol and Drug Abuse Patient Records regulations: The Federal rules restrict any use of the information to criminally investigate or prosecute any alcohol or drug abuse patient.[facility] HospitalIn the event this information is protected by the Federal Confidentiality of Alcohol and Drug Abuse Patient Records regulations: The Federal rules restrict any use of the information to criminally investigate or prosecute any alcohol or drug abuse patient.[facility] HospitalIn the event this information is protected by the Federal Confidentiality of Alcohol and Drug Abuse Patient Records regulations: The Federal rules restrict any use of the information to criminally investigate or prosecute any alcohol or drug abuse patient.[facility] HospitalIn the event this information is protected by the Federal Confidentiality of Alcohol and Drug Abuse Patient Records regulations: The Federal rules restrict any use of the information to criminally investigate or prosecute any alcohol or drug abuse patient.[facility] HospitalIn the event this information is protected by the Federal Confidentiality of Alcohol and Drug Abuse Patient Records regulations: The Federal rules restrict any use of the information to criminally investigate or prosecute any alcohol or drug abuse patient.[facility] HospitalIn the event this information is protected by the Federal Confidentiality of Alcohol and Drug Abuse Patient Records regulations: The Federal rules restrict any use of the information to criminally investigate or prosecute any alcohol or drug abuse patient.[facility] HospitalIn the event this information is protected by the Federal Confidentiality of Alcohol and Drug Abuse Patient Records regulations: The Federal rules restrict any use of the information to criminally investigate or prosecute any alcohol or drug abuse patient.[facility] Reason for Visit (unrecogniz ed section and content) Specialty Diagnoses / Procedures Referred By Zhao soliman Referred To Contact Family Medicine / FAMILY MEDICINE Diagnoses Wellness Procedures EST WELL VISIT Self Johan Chavez MD [address] [place] [address] Referral ID Status Reason Start Date Expiration Date V isits Requested Visits Authorized [id number] Closed Financial Clearance Required - Self Pay Patient Cleared - [facility] [place] 09/06/2022 12/05/2022 1 1 Reason Comments Results Mammogram -Additiona l imaging needed Reason Comments Mammogram Result Call Back Reason Comments Results Reason Comments Orders Additional mammogram Reason Comments Orders Care Teams (unrecognized sec tion and content) Sizing Sprayer Relationship Specialty Start Date End Date Johan Chavez MD [address] [place], [place] [id number] PCP - General Family Medicine 09/01/22 Fausto Gibbons [address] [place] [address] Gastroenterology 09/01/22 Sizing Sprayer Relationship Specialty Start Date End Date Johan Chavez MD [address] [place], [place] [phone] PCP - General Family Medicine 09/01/22 Fausto Gibbons [address] [facility] [address] [place] [address] Gastroenterology 09/01/22 Sizing Sprayer Relationship Specialty Start Date End Date Johan Chavez MD [address] [place] [address] PCP - General Family Medicine 09/01/22 Fausto Gibbons [address] [facility] [address] [place] [address] Gastroenterology 09/01/22 Sizing Sprayer Relationship Specialty Start Date End Date Johan Chavez MD [address] [place] [address] PCP - General Family Medicine 09/01/22 Fausto Gibbons [address] [facility] [address] [place], [place] [address] Gastroenterology 09/01/22 Sizing Sprayer Relationship Specialty Start Date End Date Johan Chavez MD [address] [place] [address] PCP - General Family Medicine 09/01/22 Fausto Gibbons [address] [facility] [address] [place], [place] [id number] Gastroenterology 09/01/22 FOR RECORDS PERTAINING TO PATIENTS WHO ARE OR HAVE BEEN ENROLLED IN A CHEMICAL DEPENDENCY/SUBSTANCEABUSE PROGRAM, SOME INFORMATION MAY BE OMITTED. This clinical summary was aggregated from multiple sources. Caution should be exercised in using it in the provision of clinical care. This summary normalizes information from multiple sources, and as a consequence, information in this document may materially change the coding, format and clinical context of patient data. In addition, data may be omitted in some cases. CLINICAL DECISIONS SHOULD BE BASED ON THE PRIMARY CLINICAL RECORDS. [employer] [facility]. provides no warranty or guarantee of the accuracy or completeness of information in this document.
[2023-04-06 20:38] LABS: Differential Indicated SCAN CRITERIA MET
[2023-04-06 20:41] LABS: Internal QC Validated? YES +Cl - CLEAR BKGD; Pregnancy, Serum, hCG Quali. NEGATIVE Negative
[2023-04-06 20:46] LABS: Anion Gap 6 (5-15); BUN 11 mg/dL (7-18); BUN/Creat Ratio 12.8 RATIO (10-20); Calcium,Total 9.5 mg/dL (8.5-10.1); Chloride 113 mmol/L (98-107); Creatinine, Serum 0.86 mg/dL (0.55-1.02); EST Glomerular Filtration Rate 72 mL/min (>60); Est Glom Filt Rate - Afr Amer 87 mL/min (>60); Estimated Creatinine Clearance 80.14 ml/min; Glucose 120 mg/dL (74-106); Potassium 3.4 mmol/L (3.5-5.1); Sodium Level 141 mmol/L (136-145)
[2023-04-06 20:54] LABS: Differential Comment SCANNED
[2023-04-06 21:37] LABS: Bacteria 0 SEEN /hpf (None Seen)
[2023-04-06 21:38] LABS: Color, Urine Yellow (Yellow); Glucose, Dipstick Normal (Normal); Leukocyte Esterase-Dipstick 500 /ul (Negative); Nitrite-Dipstick Negative (Negative); Occult Blood-Urine Negative /ul (Negative); Protein-Dipstick 30 mg/dl (Negative); Specific Gravity, Urine 1.015 (1.002-1.030); Urine Clarity Clear (Clear); Urine Urobilinogen Normal (Normal)
[2023-04-06 21:59] LABS: Urine Bilirubin Dipstick 1 mg/dL (Negative)
[2023-04-06 22:00] LABS: Ketone-Dipstick 150 mg/dl (Negative); Mucous, Urine RARE /hpf (<or=2+); Red Blood Cells-Urine 0-5 SEEN /hpf (0-5); Squamous Epithelial Cells - UA 0-5 SEEN /hpf (5-10); White Blood Cells 25-50 SEEN /hpf (0-5)
[2023-04-06 22:31] VITALS: BP 115/74; PULSE 74; RESP 16; O2SAT 97
== END 2023-04-06 22:33 | disposition home or self-care (01) ==
PROVIDERS: Emergency Provider Student in an Organized Health Care Education/Training Program; PCP Family Medicine; Visit Provider Student in an Organized Health Care Education/Training Program
DX: B34.9 Viral infection, unspecified (principal); R11.2 Nausea with vomiting, unspecified; R19.7 Diarrhea, unspecified; S39.012A Strain of muscle, fascia and tendon of lower back, initial encounter; X58.XXXA Exposure to other specified factors, initial encounter
CPT/HCPCS: 80048; 81001; 84703; 85025; 87631; 96361; 96372; 96374; 99284; J7030; A4216

== ENCOUNTER 2024-02-17 13:57 | Emergency (ER) | payer SELFPAY ==
[2024-02-17 13:58] VITALS: BP 156/132; PULSE 103; RESP 18; TEMP 36; O2SAT 94
--- NOTE | 2024-02-17 14:10 | EDS_ITS ---
HPI <SHAKIR Su - Last Filed: 02/17/24 19:37> History of Present Illness Chief Complaint: Nausea/Vomiting/Diarrhea Narrative Narrative: Patient presenting today with nausea, vomiting, and diarrhea that started around 2 AM this morning. She reports that her daughter and grandson have been sick with similar symptoms. She denies abdominal pain, fevers, chills, hematemesis, blood in the stool, and urinary symptoms. Previous abdominal surgeries include a cholecystectomy. She denies any chronic medical conditions. PFSH <SHAKIR Su - Last Filed: 02/17/24 19:37> [facility] Medical History Contact dermatitis due to poison sonya Allergic conjunctivitis history of broken ankle Home Medications ?Medication ?Instructions ?Recorded ?Last Taken ?Type metoclopramide HCl 10 mg tablet 10 mg PO Q6H PRN nausea and 02/17/24 Unknown Rx (Reglan) vomiting 3 days #12 tabs Allergy/AdvReac Type Severity Reaction Status Date / Time No Known Allergies Allergy Verified 02/17/24 14:01 Surgical History History of cholecystectomy Social History Smoking Status: Never smoker alcohol intake: never ROS <SHAKIR Su - Last Filed: 02/17/24 19:37> ROS ED Constitutional Constitutional ED: Denies chills or fever(s) Cardiovascular Cardiovascular: Denies chest pain Respiratory/Chest Respiratory/Chest: Denies dyspnea Gastrointestinal Gastrointestinal: Reports diarrhea, nausea and vomiting; Denies abdominal pain, constipation or melena Genitourinary Genitourinary ED: Denies dysuria, hematuria or urinary urgency Musculoskeletal Musculoskeletal: Denies arthralgias or myalgias Integumentary Denies rash Neurologic Neurologic: Denies weakness EXAM <SHAKIR Su - Last Filed: 02/17/24 19:37> Physical Exam Const Vital Signs: 02/17/24 13:58 02/17/24 15:08 02/17/24 16:11 Temperature 96.8 F L 98.1 F 98.1 F Temperature Source Temporal Oral Pulse Rate 103 H 82 87 Respiratory Rate 18 20 H 20 H Blood Pressure 156/132 H 114/54 L 105/68 Blood Pressure Mean 140 74 80 Pulse Ox 94 97 97 Oxygen Delivery Method Room Air Room Air Positive well nourished, well developed and no apparent distress General Appearance ED: well developed HEENT Reports normocephalic, head/scalp atraumatic and dry mucous membranes Mouth ED: Yes dry mucous membranes Mouth: dry mucous membranes Eyes PERRL and EOMs intact bilaterally Neck full ROM and supple Chest Wall inspection of chest normal Resp normal respiratory effort and clear to auscultation bilaterally Cardio regular rate and regular rhythm GI soft to palpation, non-tender, non-distended and no masses Back/Spine normal ROM and normal to inspection Extremity normal to inspection and full ROM Neuro oriented x3, CN's II-XII intact bilaterally, moves all extremities, no focal motor deficits and no sensory deficits noted Sensorium / Orientation: awake and alert Psych mental status grossly normal and thought process normal Skin no rashes or lesions noted and no wounds <Dr. Bernardo Torres MD - Last Filed: 02/17/24 15:49> Physical Exam Const Vital Signs: 02/17/24 13:58 02/17/24 15:08 02/17/24 16:11 Temperature 96.8 F L 98.1 F 98.1 F Temperature Source Temporal Oral Pulse Rate 103 H 82 87 Respiratory Rate 18 20 H 20 H Blood Pressure 156/132 H 114/54 L 105/68 Blood Pressure Mean 140 74 80 Pulse Ox 94 97 97 Oxygen Delivery Method Room Air Room Air [facility] <SHAKIR Su - Last Filed: 02/17/24 19:37> [facility] Narrative Medical decision making narrative: Patient presented with nausea, vomiting, and diarrhea that started early this morning. She denies abdominal pain, her abdomen is soft and nontender. Initially hypertensive, vitals were checked. She began IV fluids and Zofran and basic labs will be obtained to assess for electrolyte derangement, leukocytosis. Her CBC and BMP are largely unremarkable. On reexamination she does report still feeling slightly nauseous and was given IV Reglan. She then reports improvement of her symptoms, she is tolerating p.o. fluids. I suspect this is likely gastroenteritis. She will be discharged home in stable condition. I have personally performed a face to face assessment of the patient and have reviewed the ALICIA Note. I performed a substantive portion of the visit including all aspects of the following. My schultz findings include: History is 58-year-old female with nausea, vomiting and diarrhea starting around 1 AM this morning. Her daughter and grandchild had similar symptoms in the last few days. She denies any significant abdominal pain. No dysuria. No other complaints. Exam is [58-year-old female lying in bed. Vital signs are stable afebrile. Blood pressure elevated be reevaluated. H EENT exam unremarkable. Moist extremities. Neck nontender no lymphadenopathy. Lungs clear to auscultation bilaterally. Heart regular rhythm rate about 100 no murmur. Chest wall and ribs nontender. Abdomen soft nondistended normal bowel sounds no peritoneal signs. No significant tenderness. Right upper and lower quadrants unremarkable. No obstruction. Moving all 4 extremities. Nontender no edema. Back unremarkable. Neurologically patient is awake alert no focal motor deficits] Medical Decision Making [exam and history are consistent with a viral gastroenteritis. IV fluids, screening labs and Zofran. Use a p.o. challenge and reassess.] Other additions or changes: [Repeat exam patient is progressively improving with additional fluids and nausea medication. She has Zofran at home. When she is feeling better she will be discharged home treated as viral gastroenteritis.] Lab Data Labs: Laboratory Results - last 24 hr 02/17/24 14:18 WBC 7.2 RBC 4.82 Hgb 14.2 Hct 41.2 MCV 85.5 MCH 29.5 MCHC 34.5 RDW Std Deviation 39.1 RDW Coeff of Agnieszka 12.6 Plt Count 357 MPV 8.8 Immature Gran % (Auto) 0.300 Neut % (Auto) 92.9 H Lymph % (Auto) 3.3 L Bureau % (Auto) 2.9 Eos % (Auto) 0.3 Baso % (Auto) 0.3 Absolute Neuts (auto) 6.7 Absolute Lymphs (auto) 0.24 L Nucleated RBC % 0 Sodium 141 Potassium 3.7 Chloride 109 H Carbon Dioxide 21.0 Anion Gap 12 BUN 13 Creatinine 0.82 Estim Creat Clear Calc 77.13 Est GFR (MDRD) Af Amer 92 Est GFR (MDRD) Non-Af 76 BUN/Creatinine Ratio 15.9 Glucose 137 H Calcium 9.4 <Dr. Bernardo Torres MD - Last Filed: 02/17/24 15:49> [facility] MDM Narrative Medical decision making narrative: Patient presented with nausea, vomiting, and diarrhea that started early this morning. She denies abdominal pain, her abdomen is soft and nontender. Initially hypertensive, vitals were checked. She began IV fluids and Zofran and basic labs will be obtained to assess for electrolyte derangement, leukocytosis. I have personally performed a face to face assessment of the patient and have reviewed the ALICIA Note. I performed a substantive portion of the visit including all aspects of the following. My schultz findings include: History is 58-year-old female with nausea, vomiting and diarrhea starting around 1 AM this morning. Her daughter and grandchild had similar symptoms in the last few days. She denies any significant abdominal pain. No dysuria. No other complaints. Exam is [58-year-old female lying in bed. Vital signs are stable afebrile. Blood pressure elevated be reevaluated. H EENT exam unremarkable. Moist extremities. Neck nontender no lymphadenopathy. Lungs clear to auscultation bilaterally. Heart regular rhythm rate about 100 no murmur. Chest wall and ribs nontender. Abdomen soft nondistended normal bowel sounds no peritoneal signs. No significant tenderness. Right upper and lower quadrants unremarkable. No obstruction. Moving all 4 extremities. Nontender no edema. Back unremarkable. Neurologically patient is awake alert no focal motor deficits] Medical Decision Making [exam and history are consistent with a viral gastroenteritis. IV fluids, screening labs and Zofran. Use a p.o. challenge and reassess.] Other additions or changes: [Repeat exam patient is progressively improving with additional fluids and nausea medication. She has Zofran at home. When she is feeling better she will be discharged home treated as viral gastroenteritis.] History & Record Review Discussion w/independent historian: Patient Lab Data Attestation: I reviewed the patient's lab results. Lab results narrative: CBC normal. White count of 7. H&H 14 and 41. Platelets 357. Electrolytes unremarkable gap 12. Normal BUN and creatinine at 13 and 0.8. Glucose 137. Labs: Laboratory Results - last 24 hr 02/17/24 14:18 WBC 7.2 RBC 4.82 Hgb 14.2 Hct 41.2 MCV 85.5 MCH 29.5 MCHC 34.5 RDW Std Deviation 39.1 RDW Coeff of Agnieszka 12.6 Plt Count 357 MPV 8.8 Immature Gran % (Auto) 0.300 Neut % (Auto) 92.9 H Lymph % (Auto) 3.3 L Bureau % (Auto) 2.9 Eos % (Auto) 0.3 Baso % (Auto) 0.3 Absolute Neuts (auto) 6.7 Absolute Lymphs (auto) 0.24 L Nucleated RBC % 0 Sodium 141 Potassium 3.7 Chloride 109 H Carbon Dioxide 21.0 Anion Gap 12 BUN 13 Creatinine 0.82 Estim Creat Clear Calc 77.13 Est GFR (MDRD) Af Amer 92 Est GFR (MDRD) Non-Af 76 BUN/Creatinine Ratio 15.9 Glucose 137 H Calcium 9.4 Discharge Plan Triage Chief Complaint: Nausea/Vomiting/Diarrhea ED Midlevel Provider: Tere Gill ED Provider: Bernardo Torres Dx/Rx/DC Orders Clinical Impression: Viral gastroenteritis, Nausea, vomiting and diarrhea Instructions: ED Gastroenteritis, Viral (Adult) Prescriptions: New metoclopramide HCl [Reglan] 10 mg tablet 10 mg PO Q6H PRN (Reason: nausea and vomiting) 3 Days Qty: 12 0RF Primary Care Provider: Johan Armstrong Referrals: Johan Armstrong MD [Primary Care Provider] - Activity Restrictions/Additional Instructions: Zofran as needed for nausea which you may swallow if nauseated as well as disso lve under your tongue. Plenty of fluids and rest. Water, Gatorade and 7-Up. Likewise slowly increase your diet as tolerated. Most important thing is drinking fluids. Return if you are feeling worse or any keep fluids down. Follow-up with your doctor if not improving. This should progressively get better over the next 1 to 3 days. Print Language: Faroese Disposition Disposition: Home, Self Care Discharge Date/Time: 02/17/24 16:12
[2024-02-17 14:11] VITALS: BMI 27.1
[2024-02-17] MEDS: Ondansetron 4 MG/2 ML Vial IV (14:16)
[2024-02-17] MEDS: 0.9% Normal Saline (1000mL) 1,000 ML 999 ML IV (14:16)
[2024-02-17 14:36] LABS: Absolute Lymphocyte Count 0.24 X10^3/uL (0.83-4.51); Absolute Neutrophil Count 6.7 X10^3/uL (2.0-7.7); Basophil# 0.02 X10^3/uL; Basophil% 0.3 % (0-1); Eosinophil# 0.02 X10^3/uL; Eosinophils% 0.3 % (0-5); Hematocrit 41.2 % (37-47); Hemoglobin 14.2 g/dL (12.0-15.0); Lymphocyte # 0.24 X10^3/ul (0.83-4.51); Lymphocyte % 3.3 % (19-41); Mean Corp Hgb Conc 34.5 g/dL (32-36); Mean Corpuscular Hgb 29.5 pg (27.0-32.0); Mean Corpuscular Volume 85.5 fL (81-99); Mean Platelet Vol. 8.8 fl (6.2-12.0); Monocyte# 0.21 X10^3/uL; Monocyte% 2.9 % (0-10); NRBC Flagged by Analyzer 0 % (0-5); Neutrophil # 6.66 X10^3/uL (2.7-7.7); Neutrophil % 92.9 % (47-70); POSITIVE DIFFERENTIAL YES; Platelet Count 357 K/mm3 (150-450); RBC Distribution Width CV 12.6 % (11.6-14.6); RBC Distribution Width SD 39.1 fl (35.1-43.9); Red Blood Count 4.82 M/mm3 (4.2-5.4); White Blood Count 7.2 K/mm3 (4.4-11.0)
[2024-02-17 14:46] LABS: Anion Gap 12 (5-15); BUN 13 mg/dL (7-18); BUN/Creat Ratio 15.9 RATIO (10-20); Calcium,Total 9.4 mg/dL (8.5-10.1); Chloride 109 mmol/L (98-107); Creatinine, Serum 0.82 mg/dL (0.55-1.02); EST Glomerular Filtration Rate 76 mL/min (>60); Est Glom Filt Rate - Afr Amer 92 mL/min (>60); Estimated Creatinine Clearance 77.13 ml/min; Glucose 137 mg/dL (74-106); Potassium 3.7 mmol/L (3.5-5.1); Sodium Level 141 mmol/L (136-145)
[2024-02-17 15:08] VITALS: BP 114/54; PULSE 82; RESP 20; TEMP 36.7; O2SAT 97
[2024-02-17] MEDS: Metoclopramide 10 MG/2 ML Vial 5 MG IV (15:30)
[2024-02-17] MEDS: 0.9% Normal Saline (500mL Bag) 500 ML 999 ML IV (15:31)
[2024-02-17 16:11] VITALS: BP 105/68; PULSE 87; RESP 20; TEMP 36.7; O2SAT 97
== END 2024-02-17 16:12 | disposition home or self-care (01) ==
PROVIDERS: Physician Assistant; Emergency Provider Emergency Medicine; PCP Family Medicine; Visit Provider Emergency Medicine
DX: A08.4 Viral intestinal infection, unspecified (principal)
CPT/HCPCS: 80048; 85025; 96361; 96374; 96375; 96376; 99283; A4216; J2405

== ENCOUNTER 2025-03-12 09:17 | Emergency (ER) | payer SELFPAY ==
[2025-03-12 09:19] VITALS: BP 111/73; PULSE 72; RESP 16; TEMP 36.2; O2SAT 100; BMI 29.8
--- NOTE | 2025-03-12 09:43 | EX.ED.DYSGE1 ---
HPI History of Present Illness Chief Complaint: Bite Narrative Narrative: Patient is a 59-year-old right hand dominant female presenting to the emergency department for a bat bite to her right hand. She states that she was cleaning up her guest room for her daughter to come stay when she was going to take up the trash and she knows that the trash bag was balled up. She went to grab it and she was bit by something. She saw flapping of wings and knew it was a bat. She states they have had issues with bats in their house before. She states she was bit at the base of her right finger. It immediately started bleeding. She denies any other known bites. States her tetanus shot is UTD from about a year ago. She was able to catch the bat and bring it in a trash bag here. [facility] Medical History Contact dermatitis due to poison sonya Allergic conjunctivitis history of broken ankle Home Medications ?Medication ?Instructions ?Recorded ?Last Taken ?Type NK 11/19/24 Unknown History Allergy/AdvReac Type Severity Reaction Status Date / Time No Known Allergies Allergy Verified 03/12/25 09:22 Surgical History History of cholecystectomy Social History Smoking Status: Never smoker alcohol intake: never ROS ROS ED ROS Narrative see HPI EXAM Physical Exam Narrative Exam Narrative: Vital signs: Reviewed General: Alert and orientedx3. No acute distress. Well-appearing, nontoxic HEENT: Head is normocephalic and atraumatic, sinuses nontender, pupils equal round and reactive. Nares are patent. Oropharynx and throat exams normal. Neck: Supple without lymphadenopathy nontender Cardiovascular: Regular rate and rhythm, no murmurs. No rubs or gallops. Normal S1 and S2 Respiratory: Clear to auscultation bilaterally. No wheezes, rales, rhonchi Abdominal: Soft and nontender. Normal bowel sounds. No guarding or rebound. Nonsurgical abdomen Extremities: There is a small puncture wound to the base of the right volar aspect of the index finger. No active bleeding. No gaping wound. No swelling or tenderness to palpation. Radial pulse intact. Sensation and motor intact in radial, median and ulnar distributions. Skin: No rash or redness. The rest of the physical exam is unremarkable Const Vital Signs: 03/12/25 09:19 03/12/25 11:02 03/12/25 11:06 Temperature 97.2 F L 97.2 F L 97.2 F L Temperature Source Temporal Pulse Rate 72 770 H 770 H Respiratory Rate 16 16 16 Blood Pressure 111/73 108/62 108/62 Blood Pressure Mean 85 77 77 Pulse Ox 100 100 100 Oxygen Delivery Method Room Air MDM MDM MDM Narrative Medical decision making narrative: Patient is a 59-year-old female presenting to the emergency department for a bat bite. Patient was seen and examined. Vitals are stable. Patient resting in bed comfortably no acute distress. Small puncture wound to finger, I do not think she requires xray imaging of her finger. She did bring the bat in for testing, nevin Reyes was contacted as well as the [place] [facility] however [facility] is reportedly closed today because it is [place]. The bat will need to be sent to [facility] for testing so I discussed rabies vaccine administration as well as immunoglobulin administration here while waiting for testing given this could be a few days. I explained that bats have a high transmission rate of rabies and I would recommend both of these being given. Patient is agreeable. I explained that the immunoglobulin does cause fairly significant pain due to the amount that needs injected around the small bite. She understands and is agreeable. Explained that she will need to return on days 3, 7 and 14 if the bat is positive for rabies or while waiting on the results. Multiple calls were made to [facility], the nevin Reyes, [facility] vet and we are still waiting to hear back. Most of them are closed due to it being [place]. The bat is in a trash can which is wrapped in a plastic bag which will be placed in a paper bag and stapled shut and will be kept in the decontamination room until determination of where to send the bat given normal routes are closed today. Patient discharged from the Emergency Department. I do not feel that the patient's evaluation reveals any acute reason for admission at this time. I instructed them to either follow-up with their primary care physician or promptly return to the Emergency Department for reevaluation should symptoms worsen or new symptoms develop. I explained what symptoms would indicate the need to return to the emergency department. Shared decision making was used. The patient voiced understanding of the treatment plan and is agreeable with it. Clinical impression: Bat bite History & Record Review Discussion w/independent historian: Patient and Significant other Discharge Plan Triage Chief Complaint: Bite ED Provider: Kat Tellez Dx/Rx/DC Orders Clinical Impression: Bat bite of finger Instructions: Understanding Rabies, ED Animal Bite (General) Prescriptions: No Action NK Primary Care Provider: Johan Armstrong Referrals: Johan Armstrong MD [Primary Care Provider, [facility]] - As soon as possible Activity Restrictions/Additional Instructions: You need to return on days 3, 7 and 14 for rabies vaccine series unless you hear from the toys and games hand finisher that the bat tested negative for rabies. Your evaluation in the Emergency Department did not reveal any acute reason for admission. However, I want to emphasize that you may be early in the course of a disease process or illness even if it is not present. For this reason you should follow-up within 24 hours for reevaluation with either your primary care physician or if necessary back here in the Emergency Department. You should return to the Emergency Department immediately if your symptoms worsen or new symptoms develop. Print Language: Irish Disposition Disposition: Home, Self Care Discharge Date/Time: 03/12/25 11:16
--- OUTSIDE RECORDS SUMMARY | 2025-03-12 09:45 | XMS RPT_ITS | CCD ---
Author Organization [facility] Care Team Providers Care Paper Feeder Name Role Phone Fausto Gibbons Unavailable Johan Chavez MD Primary Care Provider Nathaniel CANCINO, Johan Christine Primary Care Provider Fausto Gibbons MD Unavailable Johan Chavez MD Primary Care Provider Dr. Johan Chavez MD Primary Care Provider Dr. Johan Chavez MD Referring Provider Mosony NECKTIE STITCHER-CScot Attending Provider [phone] Mosony, Scot Attending Unavailable Johan Chavez Referring Unavailable Johan Chavez Primary Care Unavailable Bernardo Torres Attending Unavailable Johan Chavez Primary Care Unavailable JOHAN CHAVEZ Primary Care Unavailab le JOHAN CHAVEZ Primary Care Unavailab le Medications Current Medications Medication Drug Class(es) Dates Sig (Normalized) Sig (Original) [place] (Nk) (1 source) Start: 11-19-2024 [place] (Nk) A ctive November 19, 2024 12:00am Completed/Discontinued Medications Medication Drug Class(es) Dates Sig (Normalized) Sig (Original) benzonatate 100 mg oral capsule (2 sources) Non-narcotic Antitussive Start: 05-09-2022 End: 02-17-2024 take 2 capsules by mouth three times daily as needed for cough Benzonatate 100 mg capsule Discontinued 200 mg PO THREE TIMES A DAY as needed for cough 30 May 09, 2022 1:00am February 17, 2024 3:29pm Start: 05-09-2022 take 200 mg by mouth three times daily Benzonatate Active 200 MG PO THREE TIMES A DAY May 09, 2022 12:00am cyclobenzaprine hydrochloride 10 mg oral tablet (2 sources) Muscle Relaxant Start: 04-06-2023 End: 02-17-2024 take 1 tablet by mouth three times daily as needed for muscle spasms Cyclobenzaprine 10 mg tablet Discontinued 10 mg PO THREE TIMES A DAY as needed for Muscle Spasm April 06, 2023 1:00am February 17, 2024 3:29pm dicyclomine hydrochloride 10 mg oral capsule (2 sources) Anticholinergic Start: 04-06-2023 End: 02-17-2024 take 1 capsule by mouth three times daily as needed for pain Dicyclomine 10 mg capsule Discontinued 10 mg PO THREE TIMES A DAY as needed for abdominal pain April 06, 2023 11:14pm February 17, 2024 3:29pm metoclopramide 10 mg oral tablet (1 source) Dopamine-2 Receptor Antagonist Start: 02-17-2024 End: 11-19-2024 take 1 tablet by mouth every six hours as needed for nausea and vomiting Metoclopramide Hcl (Reglan) 10 mg tablet Discontinued 10 mg PO EVERY 6 HOURS as needed for nausea and vomiting 12 3 February 17, 2024 1:00am November 19, 2024 11:01am ondansetron 4 mg disintegrating oral tablet (5 sources) Serotonin-3 Receptor Antagonist Start: 04-06-2023 End: 02-17-2024 take 1 tablet by mouth every eight hours as needed for nausea Ondansetron 4 mg tablet,disintegrati ng Discontinued 4 mg PO EVERY 8 HOURS NEEDED as needed for Nausea 14 April 06, 2023 1:00am February 17, 2024 3:29pm Start: 03-09-2022 End: 05-09-2022 take 1 tablet by mouth every six hours as needed for nausea and vomiting Ondansetron 4 mg tablet,disintegrating Discontinued 4 mg PO EVERY 6 HOURS as needed for nausea and vomiting 7 March 09, 2022 1:00am May 09, 2022 12:03pm promethazine hydrochloride 25 mg oral tablet (2 sources) Phenothiazine Start: 04-06-2023 End: 02-17-2024 take 1 tablet by mouth three times daily as needed for nausea and vomiting Promethazine 25 mg tablet Discontinued 25 mg PO THREE TIMES A DAY as needed for nausea and vomiting 30 0 April 06, 2023 1:00am February 17, 2024 3:29pm Problems Active Problems Problem Classification Problem Date Documented Da te Episodic/Chronic Allergic reactions (3 sources) Contact dermatitis due to poison sonya; Translations: [Allergic contact dermatitis due to plants, except food] 09-13-2020 Episodic Diseases of white blood cells (13 sources) Neutropenia; Translations: [Neutropenia, unspecified] Onset: 07-22-2009 07-22-2009 Chronic Headache; including migraine (5 sources) Migraine; Translations: [Migraine, unspecified, not intractable, without status migrainosus] Onset: 01-09-2017 03-10-2023 Chronic Immunizations and screening for infectious disease (2 sources) Contact with and (suspected) exposure to other viral communicable diseases; Translations: [Contact with or suspected exposure to other viral communicable disease] 05-09-2022 Episodic Inflammation; infection of eye (except that caused by tuberculosis or sexually transmitteddisease) (7 sources) Allergic conjunctivitis; Translations: [Acute atopic conjunctivitis, unspecified eye] Onset: 03-10-2023 09-13-2020 Episodic Influenza (3 sources) Influenza due to Influenza A virus; Translations: [Influenza due to other identified influenza virus with other respiratory manifestations] 03-17-2022 Episodic Intestinal infection (1 source) Viral gastroenteritis; Translations: [Viral intestinal infection, unspecified] 02-25-2024 Episodic Other congenital anomalies (5 sources) Syndactyly of fingers; 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, unspecified] Onset: 01-23-2017 03-10-2023 Chronic Other screening for suspected conditions (not mental disorders or infectious disease) (10 sources) Patient encounter status; Translations: [Encounter for screening for lipoid disorders] Episodic Other upper respiratory infections (5 sources) Acute pharyngitis; Translations: [Acute pharyngitis, unspecified] Onset: 11-19-2024 05-27-2018 Episodic Past or Other Problems Problem Classification Problem Date Documented Date Episodic/Chronic Biliary tract disease (13 sources) Chronic cholecystitis with calculus; Translations: [Calculus of gallbladder with chronic cholecystitis without obstruction] Onset: 10-14-2012 10-14-2012 Episodic Deficiency and other anemia (13 sources) Anemia; Translations: [Anemia, unspecified] Onset: 07-22-2009 07-22-2009 Episodic Nausea and vomiting (5 sources) Nausea and vomiting; Translations: [Nausea with vomiting, unspecified] Onset: 03-18-2024 03-17-2022 Episodic Unclassified (3 sources) history of broken ankle 10-06-2021 Results Test Name Value Interpretation Reference Range Facility Urgent Care Visit Reporton 0 11-19-2024 Urgent Care Visit Report [facility] [address], [address] [place] [address] OFFICE VISIT Date of Service: 11/19/24 MR#: [id number] Acct: [id number] Name: JACQUELINE SERRA Rep #: [id number] : 1965 Provider: DILLON Winn Age/Sex: 59/F Location: [facility] Status: Signed Intake Vital Signs 02/17/24 13:58 11/19/24 11:08 Height 5 ft 6 in BP 120/60 Position Sitting Respiration 16 Pulse 68 Temp 98.2 F Temp Source Oral Pulse Oximetry (%) 99 Oxygen Delivery Method room air Intake Visit Reasons: SORE THROAT Chief Complaint: sore throat Accompanied by: Self Allergies No Known Allergies Allergy (Verified 11/19/24 11:01) Medications ???Medication ???Instructions ???Recorded ???Confirmed ???Type NK 11/19/24 11/19/24 History Nurse's Note: Patient here for a sore throat. Patient states that her throat started off with it scratchy and then Mon into Tues it started hurting. Patient states that she feels horrible and Mon into Tues she had a fever. Patient states it she don't take Tylenol every 4 hours that her throat feels like its on fire. [facility] Medical History Contact dermatitis due to poison sonya Allergic conjunctivitis history of broken ankle Surgical History History of cholecystectomy Social History Smoking Status: Never smoker alcohol intake: never HPI HPI Chief Complaint: sore throat Details: JACQUELINE MANGUN, is a 59 F who presents to the office today for HPI: Patient complains of about 3 days of generally not feeling well along with a sore throat. She states that she does have a mild productive cough. She notes that symptoms do seem to be improving however her throat still remains extremely sore. She otherwise denies any recent fever. ROS: As noted in HPI Physical Exam: VITALS: Reviewed. GEN: Healthy appearing, well-developed, NAD. PSYCH: AOx3. Normal memory, mood, and affect. HEENT -Eyes: -No discharge or redness; -Ears: -Mouth and throat: Moist mucous membranes. Mild tonsillar erythema with no exudate noted NECK: CV: Regular rate and rhythm LUNGS: Normal respiratory effort. Lungs clear bilaterally. SKIN: Warm, well perfused. No skin rashes or abnormal lesions noted. MSK: Normal gait. NEURO: Ambulating with no limitations. Normal muscle strength and tone. No focal deficits. Results POC Rapid Strep A Office Rapid Strep A Negative Last Edit by Dalia Aleman MA on 11/19/24 11:10 Coding Level of Care Code Off vis,est,level 3 Diagnoses Acute pharyngitis, unspecified etiology J02.9 Pharyngitis/tonsill itis etiology: unspecified etiology Assessment and Plan Assessment and Plan (1) Pharyngitis, acute: Status: Acute Qualifiers: Pharyngitis/tonsill itis etiology: unspecified etiology Qualified Code(s): J02.9 - Acute pharyngitis, unspecified Plan: - suspect viral - No unilateral tonsillar swelling - Strep negative in the office today - Discussed supportive care treatment with fluids, rest and analgesia. - The patient may also use OTC cough and cold meds as needed and warm salt water gargles, throat lozenges and/or OTC throat spray as needed. - Contagious disease precautions discussed - The patient should follow up in one week if symptoms persist or worsen Orders: Orders POC Rapid Strep A Today J02.9 - Acute pharyngitis, unspecified 11/19/24 1113 Date Scot Pa NECKTIE STITCHER-C Cosigner Signature: Date (if applicable) CC: Normal [facility] Basic Metabolic Profile (BMP )on 02-17-2024 BUN/CRE 15.9 RATIO Normal 10-20 [facility] Comment on above: Performed By: #### L 100.0100, L500.2500 #### [facility] [address] [place], [address] CA,Total 9.4 mg/dL Normal 8.5-10.1 [facility] Comment on above: Performed By: #### L 100.0100, L500.2500 #### [facility] [address] [place], [address] Chloride [Moles/Vol] 109 mmol/L High 98-107 [facility] Comment on above: Performed By: #### L 100.0100, L500.2500 #### [facility] [address] [place], [address] CO2 [Moles/Vol] 21.0 mmol/L Normal 21.0-32.0 [facility] Comment on above: Performed By: #### L 100.0100, L500.2500 #### [facility] [address] [place], [address] Creatinine [Mass/Vol] 0.82 mg/dL Normal 0.55-1.02 [facility] Comment on above: Result Comment: The validity of the calculated GFR GFRAA in patients over 70 years has not been determined. Clinical correlation is essential. Performed By: #### L 100.0100, L500.2500 #### [facility] [address] [place], [address] ECRCL 77.13 ml/min Normal [facility] Comment on above: Performed By: #### L 100.0100, L500.2500 #### [facility] [address] [place], [address] EST GFR - AA 92 mL/min Normal >60 [facility] Comment on above: Result Comment: Afri can Finnish GFR Calc Performed By: #### L 100.0100, L500.2500 #### [facility] [address] [place], [address] GAP 12 Normal 5-15 [facility] Comment on above: Performed By: #### L 100.0100, L500.2500 #### [facility] [address] [place], [address] GFR/1.73 sq M.predicted among non-blacks MDRD (S/P/Bld) [Vol rate/Area] 76 mL/min/{1.73_m2} Normal >60 [facility] Comment on above: Result Comment: Non- GFR Calc Performed By: #### L 100.0100, L500.2500 #### [facility] [address] [place], [address] Glucose [Mass/Vol] 137 mg/dL High 74-106 [facility] Comment on above: Result Comment: Fast ing Glucose result greater than or equal to 126 mg/dL suggests DIABETES MELLITUS per A.D.A. criteria. Performed By: #### L 100.0100, L500.2500 #### [facility] [address] [place], [address] Potassium [Moles/Vol] 3.7 mmol/L Normal 3.5-5.1 [facility] Comment on above: Performed By: #### L 100.0100, L500.2500 #### [facility] [address] [place], [address] Sodium [Moles/Vol] 141 mmol/L Normal 136-145 [facility] Comment on above: Performed By: #### L 100.0100, L500.2500 #### [facility] [address] [place], [address] Urea nitrogen [Mass/Vol] 13 mg/dL Normal 7-18 [facility] Comment on above: Performed By: #### L 100.0100, L500.2500 #### [facility] [address] [place], [address] CBC W/Diff, Automatedon 12-0 -2023 Absolute Lymph 0.24 X10 3/uL Low 0.83-4.51 [facility] Comment on above: Performed By: #### L 100.0100, L500.2500 #### [facility] [address] [place], [address] Absolute Neut 6.7 X10 3/uL Normal 2.0-7.7 [facility] Comment on above: Performed By: #### L 100.0100, L500.2500 #### [facility] [address] [place], [address] Basophils/100 WBC (Bld) 0.3 % Normal 0-1 [facility] Comment on above: Performed By: #### L 100.0100, L500.2500 #### [facility] [address] [place], [address] Eosinophils/100 WBC (Bld) 0.3 % Normal 0-5 [facility] Comment on above: Performed By: #### L 100.0100, L500.2500 #### [facility] [address] [place], [address] Erythrocyte distribution width (RBC) [Ratio] 12.6 % Normal 11.6-14.6 [facility] Comment on above: Performed By: #### L 100.0100, L500.2500 #### [facility] [address] [place], [address] Hematocrit (Bld) [Volume fraction] 41.2 % Normal 37-47 [facility] Comment on above: Performed By: #### L 100.0100, L500.2500 #### [facility] [address] [place], [address] Hemoglobin (Bld) [Mass/Vol] 14.2 g/dL Normal 12.0-15.0 [facility] Comment on above: Performed By: #### L 100.0100, L500.2500 #### [facility] [address] [place], [address] IG% 0.300 Normal 0.0-0.9 [facility] Comment on above: Result Comment: IG% - Immature Granulocytes (promyelocytes, myelocytes and metamyelocytes) > 1% indicates that a LEFT SHIFT is Present. Performed By: #### L 100.0100, L500.2500 #### [facility] [address] [place], [address] Lymphocytes/100 WBC (Bld) 3.3 % Low 19-41 [facility] Comment on above: Performed By: #### L 100.0100, L500.2500 #### [facility] [address] [place], [address] MCH (RBC) [Entitic mass] 29.5 pg Normal 27.0-32.0 [facility] Comment on above: Performed By: #### L 100.0100, L500.2500 #### [facility] [address] [place], [address] MCHC (RBC) [Mass/Vol] 34.5 g/dL Normal 32-36 [facility] Comment on above: Performed By: #### L 100.0100, L500.2500 #### [facility] [address] [place], [address] MCV (RBC) [Entitic vol] 85.5 fL Normal 81-99 [facility] Comment on above: Performed By: #### L 100.0100, L500.2500 #### [facility] [address] [place], [address] Monocytes/100 WBC (Bld) 2.9 % Normal 0-10 [facility] Comment on above: Performed By: #### L 100.0100, L500.2500 #### [facility] [address] [place], [address] Neutrophils/100 WBC (Bld) 92.9 % High 47-70 [facility] Comment on above: Performed By: #### L 100.0100, L500.2500 #### [facility] [address] [place], [address] Nucleated RBC (Bld) [#/Vol] 0 10*3/uL Normal 0-5 [facility] Comment on above: Performed By: #### L 100.0100, L500.2500 #### [facility] [address] [place], [address] Platelet mean volume (Bld) [Entitic vol] 8.8 fL Normal 6.2-12.0 [facility] Comment on above: Performed By: #### L 100.0100, L500.2500 #### [facility] [address] [place], [address] Platelets (Bld) [#/Vol] 357 10*3/uL Normal 150-450 [facility] Comment on above: Performed By: #### L 100.0100, L500.2500 #### [facility] [address] [place], [address] RBC (Bld) [#/Vol] 4.82 10*6/uL Normal 4.2-5.[address] [facility] Comment on above: Performed By: #### L 100.0100, L500.2500 #### [facility] [address] [place], [address] RDW SD 39.1 fl Normal 35.1-43.9 [facility] Comment on above: Performed By: #### L 100.0100, L500.2500 #### [facility] [address] [place], [address] WBC (Bld) [#/Vol] 7.2 10*3/uL Normal 4.4-11.0 [facility] Comment on above: Performed By: #### L 100.0100, L500.2500 #### [facility] [address] [place], [address] Emergency Department Summary on 02-17-2024 Emergency Department Summary [facility] Medical Records Department [address] [place] [address] Emergency Department Summary 02/17/24 MR#: [id number] Acct: [id number] Name: JACQUELINE SERRA Rep #: [id number] : 1965 58 From: Tere SCHILLING PCP: Dr. Johan Chavez MD Status:DEP ER Location: ED HPI History of Present Illness Chief Complaint: Nausea/Vomiting/Juju rrhea Narrative Narrative: Patient presenting today with nausea, vomiting, and diarrhea that started around 2 AM this morning. She reports that her daughter and grandson have been sick with similar symptoms. She denies abdominal pain, fevers, chills, hematemesis, blood in the stool, and urinary symptoms. Previous abdominal surgeries include a cholecystectomy. She denies any chronic medical conditions. [facility] Medical History Contact dermatitis due to poison sonya Allergic conjunctivitis history of broken ankle Home Medications ???Medication ???Instructions ???Recorded ???Last Taken ???Type metoclopramide HCl 10 mg tablet 10 mg PO Q6H PRN nausea and 02/17/24 Unknown Rx (Reglan) vomiting 3 days #12 tabs Allergy/AdvReac Type Severity Reaction Status Date / Time No Known Allergies Allergy Verified 02/17/24 14:01 Surgical History History of cholecystectomy Social History Smoking Status: Never smoker alcohol intake: never ROS ROS ED Constitutional Constitutional ED: Denies chills or fever(s) Cardiovascular Cardiovascular: Denies chest pain Respiratory/Chest Respiratory/Chest: Denies dyspnea Gastrointestinal Gastrointestinal: Reports diarrhea, nausea and vomiting; Denies abdominal pain, constipation or melena Genitourinary Genitourinary ED: Denies dysuria, hematuria or urinary urgency Musculoskeletal Musculoskeletal: Denies arthralgias or myalgias Integumentary Denies rash Neurologic Neurologic: Denies weakness EXAM Physical Exam Const Vital Signs: 02/17/24 13:58 02/17/24 15:08 02/17/24 16:11 Temperature 96.8 F L 98.1 F 98.1 F Temperature Source Temporal Oral Pulse Rate 103 H 82 87 Respiratory Rate 18 20 H 20 H Blood Pressure 156/132 H 114/54 L 105/68 Blood Pressure Mean 140 74 80 Pulse Ox 94 97 97 Oxygen Delivery Method Room Air Room Air Positive well nourished, well developed and no apparent distress General Appearance ED: well developed HEENT Reports normocephalic, head/scalp atraumatic and dry mucous membranes Mouth ED: Yes dry mucous membranes Mouth: dry mucous membranes Eyes PERRL and EOMs intact bilaterally Neck full ROM and supple Chest Wall inspection of chest normal Resp normal respiratory effort and clear to auscultation bilaterally Cardio regular rate and regular rhythm GI soft to palpation, non-tender, non-distended and no masses Back/Spine normal ROM and normal to inspection Extremity normal to inspection and full ROM Neuro oriented x3, CN's II-XII intact bilaterally, moves all extremities, no focal motor deficits and no sensory deficits noted Sensorium / Orientation: awake and alert Psych mental status grossly normal and thought process normal Skin no rashes or lesions noted and no wounds Physical Exam Const Vital Signs: 02/17/24 13:58 02/17/24 15:08 02/17/24 16:11 Temperature 96.8 F L 98.1 F 98.1 F Temperature Source Temporal Oral Pulse Rate 103 H 82 87 Respiratory Rate 18 20 H 20 H Blood Pressure 156/132 H 114/54 L 105/68 Blood Pressure Mean 140 74 80 Pulse Ox 94 97 97 Oxygen Delivery Method Room Air Room Air MDM MDM MDM Narrative Medical decision making narrative: Patient presented with nausea, vomiting, and diarrhea that started early this morning. She denies abdominal pain, her abdomen is soft and nontender. Initially hypertensive, vitals were checked. She began IV fluids and Zofran and basic labs will be obtained to assess for electrolyte derangement, leukocytosis. Her CBC and BMP are largely unremarkable. On reexamination she does report still feeling slightly nauseous and was given IV Reglan. She then reports improvement of her symptoms, she is tolerating p.o. fluids. I suspect this is likely gastroenteritis. She will be discharged home in stable condition. I have personally performed a face to face assessment of the patient and have reviewed the ALICIA Note. I performed a substantive portion of the visit including all aspects of the following. My schutlz findings include: History is 58-year-old female with nausea, vomiting and diarrhea starting around 1 AM this morning. Her daughter and grandchild had similar symptoms in the last few days. She denies any (more content not included)... Normal [facility] Absolute lymphocyte countOrd ered By: Arnold Alejandra on 04-06-2023 Lymphocytes Auto (Unsp spec) [#/Vol] 0.25 10*3/uL 0.83-4.51 [facility] Automated lymphocyte count a s percentage of total leukocytesOrdered By: Arnold Alejandra on 04-06-2023 Lymphocytes/100 WBC Auto (Unsp spec) 3.5 % 19-41 [facility] Basophil percentageOrdered B y: Arnold Alejandra on 04-06-2023 Basophil percentage 25-50 SEEN /hpf 0-5 [facility] Basophils/100 WBC (Bld) 0.3 % 0-1 [facility] Chloride [Moles/Vol] 113 mmol/L 98-107 [facility] Eosinophils/100 WBC (Bld) 0.3 % 0-5 [facility] Glucose [Mass/Vol] 120 mg/dL 74-106 [facility] Comment on above: Fasting Glucose resu lt from 100 to 125 mg/dL suggests IMPAIRED HOMEOSTASIS per A.D.A. criteria. Hemoglobin (Bld) [Mass/Vol] 14.2 g/dL 12.0-15.0 [facility] Monocytes/100 WBC (Bld) 2.2 % 0-10 [facility] Neutrophils (Bld) [#/Vol] 6.7 10*3/uL 2.0-7.7 [facility] Neutrophils/100 WBC (Bld) 93.3 % 47-70 [facility] Potassium [Moles/Vol] 3.4 mmol/L 3.5-5.1 [facility] Sodium [Moles/Vol] 141 mmol/L 136-145 [facility] WBC (Bld) [#/Vol] 7.1 10*3/uL 4.4-11.0 [facility] Bilirubin Test strip Ql (U)O rdered By: Arnold Alejandra on 04-06-2023 Bilirubin Ql (U) 1 mg/dL Negative [facility] Comment on above: COLOR OF URINE MAY A FFECT DIPSTICK RESULTS. Blood manual differential co mment interpretation (narrative result)Ordered By: Arnold Alejandra on 04-06-2023 Manual differential comment Shailesh (Bld) [Interp] SCANNED [facility] Comment on above: LYMPHOPENIA NOTED Determination of erythrocyte mean corpuscular volume (MCV)Ordered By: Arnold Alejandra on 04-06-2023 MCV (RBC) [Entitic vol] 85.8 fL 81-99 [facility] Erythrocyte distribution wid th ratioOrdered By: rAnold Alejandra on 04-06-2023 Erythrocyte distribution width (RBC) [Ratio] 12.3 % 11.6-14.6 [facility] Erythrocyte distribution wid th standard deviationOrdered By: Arnold Alejandra on 04-06-2023 Erythrocyte distribution width (RBC) [Entitic vol] 38.6 fL 35.1-43.9 [facility] Hematocrit Auto (Bld) [Volum e fraction]Ordered By: Arnold Alejnadra on 04-06-2023 Hematocrit (Bld) [Volume fraction] 42.3 % 37-47 [facility] Immature granulocytes/100 WB C Auto (Bld)Ordered By: Arnold Alejandra on 04-06-2023 Immature granulocytes/100 WBC (Bld) 0.400 % 0.0-0.9 [facility] Comment on above: IG% - Immature Granu locytes (promyelocytes, myelocytes and metamyelocytes) > 1% indicates that a LEFT SHIFT is Present. Ketones Test strip Ql (U)Ord ered By: Arnold Alejandra on 04-06-2023 Ketones Ql (U) 150 mg/dl Negative [facility] Comment on above: CRITICAL VALUE *HCRI TICAL VALUE VERIFIED. CALLED TO [id number] Tiffanie Singer.RESULTS READ BACK BY SAME . Laboratory - Chemistry and C hemistry - challengeOrdered By: Arnold Alejandra on 04-06-2023 CO2 [Moles/Vol] 22.0 mmol/L 21.0-32.0 [facility] Urea nitrogen/Creatinine [Mass ratio] 12.8 mg/mg 10- [facility] Laboratory - Hematology and Cell countsOrdered By: Arnold Alejandra on 04-06-2023 MCH (RBC) [Entitic mass] 28.8 pg 27.0-32.0 [facility] MCHC (RBC) [Mass/Vol] 33.6 g/dL - [facility] Nucleated RBC/100 WBC (Bld) [Ratio] 0 % 0-5 [facility] Platelets (Bld) [#/Vol] 376 10*3/uL 150-450 [facility] Laboratory - Microbiology an d Antimicrobial susceptibilityOrdered By: Arnold Alejandra on 04-06-2023 SARS-CoV-2 (COVID-19) RNA NENA+probe Ql (Unsp spec) [facility] Mucus LM Ql (Urine sed)Order ed By: Arnold Alejandra on 04-06-2023 Mucus Ql (Urine sed) RARE /hpf [facility] Nitrite Test strip Ql (U)Ord ered By: Arnold Alejandra on 04-06-2023 Nitrite Ql (U) Negative Negative [facility] No Panel InformationOrdered By: Arnold Alejandra on 04-06-2023 Urine RBC 0-5 SEEN /hpf 0-5 [facility] Estimated Creatinine Clearance Calc 80.14 ml/min [facility] Estimated GFR (MDRD) Amer 87 mL/min >60 [facility] Comment on above: GFR Calc Estimated GFR (MDRD) Non-Af Amer 72 mL/min >60 [facility] Comment on above: Non- GFR Calc Platelet mean volume Denzel-Ec ker (Bld) [Entitic vol]Ordered By: Arnold Alejandra on 04-06-2023 Platelet mean volume (Bld) [Entitic vol] 9.1 fL 6.2-12.0 [facility] Protein Test strip Ql (U)Ord ered By: Arnold Alejandra on 04-06-2023 Protein Ql (U) 30 mg/dl Negative [facility] RBC Auto (Bld) [#/Vol]Ordere d By: Arnold Alejandra on 04-06-2023 RBC (Bld) [#/Vol] 4.93 10*6/uL 4.2-5.4 [facility] Serum or plasma calcium rogerio urement (mass/volume)Ordered By: Arnold Alejandra on 04-06-2023 Calcium [Mass/Vol] 9.5 mg/dL 8.5-10.1 [facility] Serum or plasma choriogonado tropin detectionOrdered By: Arnold Alejandra on 04-06-2023 HCG ( test) Ql Negative [facility] Serum or plasma creatinine m easurement (mass/volume)Ordered By: Arnold Alejandra on 04-06-2023 Creatinine [Mass/Vol] 0.86 mg/dL 0.55-1.02 [facility] Comment on above: The validity of the calculated GFR & GFRAA in patients over 70 years has not been determined. Clinical correlation is essential. Serum or plasma urea nitroge n measurement (mass/volume)Ordered By: Arnold Alejandra on 04-06-2023 Urea nitrogen [Mass/Vol] 11 mg/dL 7-18 [facility] Squamous epithelial cells de tection in urine sediment by light microscopyOrdered By: Arnold Alejandra on 04-06-2023 Epithelial cells.squamous LM Ql (Urine sed) 0-5 SEEN /hpf 5-10 [facility] Thin prep Papanicolaou smear with manual screeningOrdered By: Arnold Alejandra on 04-06-2023 Thin prep Papanicolaou smear with manual screening 6 5-15 [facility] Urine blood detectionOrdered By: Arnold Alejandra on 04-06-2023 RBC Ql (U) Negative Negative [facility] Urine clarityOrdered By: Yeyo Alejandra on 04-06-2023 Clarity (U) Clear Clear [facility] Urine color determinationOrd ered By: Arnold Alejandra on 04-06-2023 Color (U) Yellow Yellow [facility] Urine glucose detectionOrder ed By: Arnold Alejandra on 04-06-2023 Glucose Ql (U) Normal mg/dl Normal [facility] Urine leukocyte esterase det ection by dipstickOrdered By: Arnold Alejandra on 04-06-2023 Leukocyte esterase Test strip Ql (U) 500 /ul Negative [facility] Urine pHOrdered By: Arnold rankin on 04-06-2023 pH (U) 8.0 [pH] 5.0 - 8.0 [facility] Urine sediment bacteria coun t by microscopy (number/high power field)Ordered By: Arnold Alejandra on 04-06-2023 Bacteria LM.HPF (Urine sed) [#/Area] 0 /[HPF] None Seen [facility] Urine specific gravity measu rementOrdered By: Arnold Alejandra on 04-06-2023 Specific gravity (U) [Rel density] 1.015 1.002-1.030 [facility] Urine urobilinogen measureme ntOrdered By: Arnold Alejandra on 04-06-2023 Urobilinogen Ql (U) Normal mg/dl Normal [facility] Absolute lymphocyte counton 03-09-2022 Lymphocytes Auto (Unsp spec) [#/Vol] 0.31 10*3/uL 0.83-4.51 [facility] Work Phone: Basophil percentageon 2021 Basophils/100 WBC (Bld) 0.3 % 0-1 [facility] Work Phone: [phone] Chloride [Moles/Vol] 108 mmol/L 98-107 [facility] Work Phone: Eosinophils/100 WBC (Bld) 0.0 % 0-5 [facility] Work Phone: [phone] Glucose [Mass/Vol] 129 mg/dL 74-106 [facility] Work Phone: Comment on above: Fasting Glucose resu lt greater than or equal to 126 mg/dL suggests DIABETES MELLITUS per A.D.A. criteria. Neutrophils (Bld) [#/Vol] 2.7 10*3/uL 2.0-7.7 [facility] Work Phone: Neutrophils/100 WBC (Bld) 82.3 % 47-70 [facility] Work Phone: Potassium [Moles/Vol] 3.7 mmol/L 3.5-5.1 [facility] Work Phone: Sodium [Moles/Vol] 139 mmol/L 136-145 [facility] Work Phone: WBC (Bld) [#/Vol] 3.3 10*3/uL 4.4-11.0 [facility] Work Phone: Blood erythrocytes count (nu mber/volume)on 03-09-2022 RBC (Bld) [#/Vol] 4.47 10*6/uL 4.2-5.4 [facility]: Blood hemoglobin measurement (mass/volume)on 03-09-2022 Hemoglobin (Bld) [Mass/Vol] 13.0 g/dL 12.0-15.0 [facility] Work Phone: Blood lymphocytes/100 leukoc yteson 03-09-2022 Lymphocytes/100 WBC (Bld) 9.3 % 19-41 [facility] Work Phone: Blood monocytes/100 leukocyt eson 03-09-2022 Monocytes/100 WBC (Bld) 8.1 % 0-10 [facility] Work Phone: Blood platelet mean volumeon 03-09-2022 Platelet mean volume (Bld) [Entitic vol] 8.8 fL 6.2-12.0 [facility] Work Phone: Determination of erythrocyte mean corpuscular volume (MCV)on 03-09-2022 MCV (RBC) [Entitic vol] 88.8 fL 81-99 [facility] Work Phone: Hematocrit Auto (Bld) [Volum e fraction]on 03-09-2022 Hematocrit (Bld) [Volume fraction] 39.7 % 37-47 [facility] Work Phone: Laboratory - Chemistry and C hemistry - challengeon 12-22-2022 CO2 [Moles/Vol] 27.0 mmol/L 21.0-32.0 [facility] Work Phone: Urea nitrogen/Creatinine [Mass ratio] 9.1 mg/mg 10-20 [facility] Work Phone: Laboratory - Hematology and Cell countson 03-09-2022 Erythrocyte distribution width (RBC) [Entitic vol] 40.5 fL 35.1-43.9 [facility] Work Phone: Erythrocyte distribution width (RBC) [Ratio] 12.4 % 11.6-14.6 [facility] Work Phone: Immature granulocytes/100 WBC (Bld) 0.000 % 0.0-0.9 [facility] Work Phone: Comment on above: IG% - Immature Granu locytes (promyelocytes, myelocytes and metamyelocytes) > 1% indicates that a LEFT SHIFT is Present. MCH (RBC) [Entitic mass] 29.1 pg 27.0-32.0 [facility] Work Phone: Nucleated RBC/100 WBC (Bld) [Ratio] 0 % 0-5 [facility] Work Phone: MCHC Auto (RBC) [Mass/Vol]on 03-09-2022 MCHC (RBC) [Mass/Vol] 32.7 g/dL 32-36 [facility] Work Phone: No Panel Informationon 03-09 Estimated Creatinine Clearance Calc 75.46 ml/min [facility] Work Phone: Estimated GFR (MDRD) Amer 99 mL/min >60 [facility] Work Phone: Comment on above: GFR Calc Estimated GFR (MDRD) Non-Af Amer 82 mL/min >60 [facility] Work Phone: Comment on above: Non- GFR Calc Platelets bldon 03-09-2022 Platelets (Bld) [#/Vol] 253 10*3/uL 150-450 [facility] Work Phone: Serum or plasma calcium rogerio urement (mass/volume)on 03-09-2022 Calcium [Mass/Vol] 8.9 mg/dL 8.5-10.1 mehrdad [facility] Work Phone: Serum or plasma creatinine m easurement (mass/volume)on 03-09-2022 Creatinine [Mass/Vol] 0.77 mg/dL 0.55-1.02 [facility] Work Phone: Comment on above: The validity of the calculated GFR & GFRAA in patients over 70 years has not been determined. Clinical correlation is essential. Serum or plasma urea nitroge n measurement (mass/volume)on 03-09-2022 Urea nitrogen [Mass/Vol] 7 mg/dL 7-18 [facility] Work Phone: Thin prep Papanicolaou smear with manual screeningon 03-09-2022 Thin prep Papanicolaou smear with manual screening 4 5-15 [facility] Work Phone: PAP SMEARon 06-23-2020 Cytopathology procedure, preparation of smear, genital source Patient: JACQUELINE SERRA Specimen: [id number] Spec Type: PAP SMEAR Ord. Dr.: Johan Chavez MD Status: SOUT Collect Date: 06/23/20 1510 Received Date: 06/28/20 1150 Source: CERVICAL() Procedure: CYTO PAP TLP MS Comments: Thinprep vial. PAP QUESTIONNAIRE Patient: JACQUELINE SERRA ? - control? - Age/Sex: 55/F F ? - Hormones? - Col Date: 06/23/20 Menopausal? - Hyster? - LMP: Not given Pertinent Hx: Z12.4 CYTO LOGY REPORT -------- SPECIMEN ADEQUACY: Satisfactory for evaluation. Scant cellularity present. DESCRIPTIVE DIAGNOSIS: Negative for intraepithelial lesion or malignancy. Inflammatory cells present. HPV TESTING: HPV testing is available up to 6 weeks from collect date. Signed Verified/Reviewed by BRIANA KEY 07/05/20 [facility] NAME: JACQUELINE SERRA Pathology and Laboratory Medicine UNIT#: [id number] LOC: [place] Work Ticket Distributor: Liliana Gonzales M.D. [facility] [id number] ROOM/BED: Clear Advantage Collar : 63 AGE/SEX: 55/F ORD.Johan Foster MD END OF REPORT Normal [facility] [place] XR Foot - right AP and Later al and obliqueon 04-27-2020 IMPRESSION: 1. Large anterior posterior heel spurs 2. Calcific or ossific density projecting along the undersurface of the cuboid on the lateral view could be due to remote trauma. Model Builder Display: JENN Transcribe Date/Time: Apr 27 2020 11:04A Dictated by : MARKO ROMO DO This examination was interpreted and the report reviewed and electronically signed by: MARKO ROMO DO on Apr 27 2020 11:07AM [facility] DIVISION OF RADIOLOGY * * *Final Report* * * DATE OF EXAM: Apr 27 2020 11:01AM WOX 5337 - XR FOOT 3V AP/LAT/OBL RT / PROCEDURE REASON: Pain of right heel * * * * Physician Interpretation * * * * RIGHT foot EXAM DATE/TIME: 04/27/2020 11:01 AM HISTORY: 54 years old Clinical information: Pain of right heel Diffuse right heel pain without injury x 1 day Heel pain TECHNIQUE: Images: XR FOOT 3V AP/LAT/OBL RT Comparison: None. RESULT: Findings: Right :No fractures or dislocations are seen. Large size anterior and posterior heel spurs. Foot anatomy. There is a calcific or ossific density projecting along the undersurface of the cuboid. This could be due to remote trauma Left :No fractures or dislocations are seen. DIVISION OF RADIOLOGY Provider, [facility] [place] - 04/27/2020 * * *Final Report* * * DATE OF EXAM: Apr 27 2020 11:01AM WOX 5337 - XR FOOT 3V AP/LAT/OBL RT / PROCEDURE REASON: Pain of right heel * * * * Physician Interpretation * * * * RIGHT foot EXAM DATE/TIME: 04/27/2020 11:01 AM HISTORY: 54 years old Clinical information: Pain of right heel Diffuse right heel pain without injury x 1 day Heel pain TECHNIQUE: Images: XR FOOT 3V AP/LAT/OBL RT Comparison: None. RESULT: Findings: Right :No fractures or dislocations are seen. Large size anterior and posterior heel spurs. Foot anatomy. There is a calcific or ossific density projecting along the undersurface of the cuboid. This could be due to remote trauma Left :No fractures or dislocations are seen. IMPRESSION IMPRESSION: 1. Large anterior posterior heel spurs 2. Calcific or ossific density projecting along the undersurface of the cuboid on the lateral view could be due to remote trauma. Model Builder Display: JENN Transcribe Date/Time: Apr 27 2020 11:04A Dictated by : MARKO ROMO DO This examination was interpreted and the report reviewed and electronically signed by: MARKO ROMO DO on Apr 27 2020 11:07AM EST [facility] Radiology Study observation (narrative) Ricky longoria [facility] XR Foot - right AP and Later al and obliqueOrdered By: [facility] Provider on 04-27-2020 [facility] No Panel Information Influenza Types A,B Direct FA (NURIS) Influenzae A [facility] Work Phone: Vital Signs Date Time Vital Sign Value Performing Clinician Facility 11-19-2024 11:08-0400 Body temperature 98.2 [degF] Dr. Johan Chavez MD Work Phone: [facility] 11-19-2024 11:08-0400 Diastolic blood pressure 60 mm[Hg] Dr. Johan Chavez MD Work Phone: [facility] 11-19-2024 11:08-0400 Heart rate 68 /min Dr. Johan Chavez MD Work Phone: [facility] 11-19-2024 11:08-0400 Respiratory rate 16 /min Dr. Johan Chavez MD Work Phone: [facility] 11-19-2024 11:08-0400 SaO2% (BldA) [Mass fraction] 99 % Dr. Johan Chavez MD Work Phone: [facility] 11-19-2024 11:08-0400 Systolic blood pressure 120 mm[Hg] Dr. Johan Chavez MD Work Phone: [facility] 09-05-2023 15:09-0400 Body height 168.9 cm Johan Chavez MD Work Phone: [facility] 09-05-2023 15:09-0400 Body mass index (BMI) [Ratio] 27.66 kg/m2 Johan Chavez MD Work Phone: [facility] 09-05-2023 15:09-0400 Body temperature 97.59 [degF] Johan Chavez MD Work Phone: [facility] 09-05-2023 15:09-0400 Body weight 78.93 kg Johan Chavez MD Work Phone: [facility] 09-05-2023 15:09-0400 Diastolic blood pressure 74 mm[Hg] Johan Chavez MD Work Phone: [facility] 09-05-2023 15:09-0400 Heart rate 68 /min Johan Chavez MD Work Phone: [facility] 09-05-2023 15:09-0400 Respiratory rate 18 /min Johan Chavez MD Work Phone: [facility] 09-05-2023 15:09-0400 SaO2% (BldA) [Mass fraction] 97 % Johan Chavez MD Work Phone: [facility] 09-05-2023 15:09-0400 Systolic blood pressure 122 mm[Hg] Johan Chavez MD Work Phone: [facility] 04-06-2023 22:31-0500 Diastolic blood pressure 74 mm[Hg] [facility] 04-06-2023 22:31-0500 Heart rate 74 /min [facility] 04-06-2023 22:31-0500 Respiratory rate 16 /min [facility] 04-06-2023 22:31-0500 SaO2% (BldA) [Mass fraction] 97 % [facility] 04-06-2023 22:31-0500 Systolic blood pressure 115 mm[Hg] [facility] 04-06-2023 20:10-0500 Body mass index (BMI) [Ratio] 31.6 kg/m2 [facility] 04-06-2023 20:10-0500 Body weight 89.04 kg [facility] 04-06-2023 20:01-0500 Body temperature 97.4 [degF] [facility] 04-06-2023 19:59-0500 Body height 167.64 cm [facility] 09-06-2022 14:19-0400 Body height 168.9 cm Johan Chavez MD Work Phone: [facility] 09-06-2022 14:190400 Body temperature 96.91 [degF] Johan Chavez MD Work Phone: [facility] 09-06-2022 14:190400 Body weight 87 kg Johan Chavez MD Work Phone: [facility] 09-06-2022 14:19-0400 Diastolic blood pressure 80 mm[Hg] Johan Chavez MD Work Phone: [facility] 09-06-2022 14:19-0400 Heart rate 76 /min Johan Chavez MD Work Phone: [facility] 09-06-2022 14:19-0400 Respiratory rate 14 /min Johan Chavez MD Work Phone: [facility] 09-06-2022 14:19-0400 SaO2% (BldA) [Mass fraction] 98 % Johan Chavez MD Work Phone: [facility] 09-06-2022 14:19-0400 Systolic blood pressure 110 mm[Hg] Johan Chavez MD Work Phone: [facility] 03-09-2022 12:47-0500 Body temperature 98.3 [degF] [facility] Work Phone: 03-09-2022 12:47-0500 Diastolic blood pressure 75 mm[Hg] [facility] Work Phone: 03-09-2022 12:47-0500 Heart rate 77 /min [facility] Work Phone: 03-09-2022 12:47-0500 Respiratory rate 16 /min [facility] Work Phone: 03-09-2022 12:47-0500 SaO2% (BldA) [Mass fraction] 96 % [facility] Work Phone: 03-09-2022 12:47-0500 Systolic blood pressure 119 mm[Hg] [facility] Work Phone: 03-09-2022 08:30-0500 Body height 167.64 cm [facility] Work Phone: 03-09-2022 08:30-0500 Body mass index (BMI) [Ratio] 32.4 kg/m2 [facility] Work Phone: 03-09-2022 08:30-0500 Body weight 91.13 kg [facility] Work Phone: Encounters Encounter Date Encounter Type Care Provider Facility Start: 12-16-2024 End: 12-16-2024 ambulatory JOHAN CHAVEZ Facility:[facility] Start: 11-19-2024 End: 11-19-2024 Patient encounter procedure Scot Kipsony NECKTIE STITCHER-C -[facility] Work Phone: Start: 11-19-2024 End: 11-19-[address] Johan Chavez MD Work Phone: [facility] Start: 02-17-2024 End: 02-18-2024 Patient encounter procedure [facility] Provider [facility] Start: 02-17-2024 End: 02-17-2024 Emergency department patient visit Bernardo Torres Facility:[facility] Start: 01-02-2024 End: 01-02-2024 ambulatory JOHAN CHAVEZ Facility:[facility] Start: 10-04-2023 Documentation procedure Mammog melquiades Coordinator [facility] Start: 10-04-2023 Letter encounter Mammography Coordinator [facility] Start: 10-03-2023 End: 10-03-2023 Subsequent hospital visit by physician Screen Mammo [facility] M[facility] Comment on above: Encounter for screen ing mammogram for breast cancer [Z12.31] Start: 09-05-2023 End: 09-05-2023 Patient encounter status Johan Chavez MD Work Phone: [facility] Start: 09-05-2023 End: 09-05-2023 Periodic preventive med est patient 40-64yrs Johan Chavez MD Work Phone: [facility] Comment on above: Wellness examination (Primary Dx); Encounter for screening mammogram for breast cancer; Encounter for immunization; Lipid screening; Screening for deficiency anemia Start: 04-06-2023 End: 04-06-2023 [facility] Start: 09-26-2022 Telephone encounter Johan Chavez MD Work Phone: [facility] Comment on above: Orders (Additional m ammogram) Orders Start: 09-25-2022 ambulatory Johan Adams MD Work Phone: [facility] Comment on above: Mammogram Start: 09-25-2022 Telephone encounter Johan Chavez MD Work Phone: [facility] Comment on above: Results (Mammogram - Additional imaging needed) Mammogram Result Richi l Back Results Start: 09-22-2022 Documentation procedure Mammog melquiades Coordinator [facility] Start: 09-22-2022 Letter encounter Mammography Coordinator [facility] Start: 09-06-2022 End: 09-06-2022 Patient encounter status Johan Chavez MD Work Phone: [facility] Start: 09-06-2022 End: 09-06-2022 Periodic preventive med est patient 40-64yrs Johan Chavez MD Work Phone: [facility] Comment on above: Wellness examination (Primary Dx); Lipid screening; Screening for deficiency anemia; Encounter for screening mammogram for malignant neoplasm of breast; Screening for colon cancer Start: 03-09-2022 End: 03-09-2022 Emergency department patient visit [facility] Start: 04-27-2020 End: 04-27-2020 Subsequent hospital visit by physician [facility] Work Phone: Radiology Comment on above: Pain of right heel [ M79.671] Procedures Date Procedure Procedure Detail Performing Clinician Start: 09-05-2023 Adult depression scr eening assessment [facility] [place] Work Phone: Start: 04-06-2023 SARS-CoV-2, Influenz a & RSV (PCR) Start: 09-26-2022 Lipid 1996 panel - S kaela or Plasma Johan Chavez MD Work Phone: Start: 09-22-2022 Mammography Johan corbett MD Work Phone: Start: 04-27-2020 Radex foot complete minimum 3 views Chad Singer 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[employer] Work Phone: Influenza Types A,B Direct FA ([facility]) Plan of Treatment Date Care Activity Detail Author Start: 09-04-2033 Urine microalbumin profile DTaP,Tdap,Td Vaccine (2 - Td or Tdap) [facility] Start: 09-27-2027 Lipid panel Lipid Screening [facility] Start: 09-27-2027 LIPID SCREEN LIPID SCREEN [facility] Start: 09-26-2025 DIABETES SCREEN [facility] Start: 09-26-2025 Diabetes Screening Diabetes Screenin g [facility] Start: 09-20-2025 COLOGUARD (FIT-DNA) COLOGUARD (FIT-D NA) [facility] Start: 09-20-2025 COLORECTAL CANCER SCREENING COLORECTAL CANCER SCREENING [facility] Start: 09-20-2025 Screening for malign ant neoplasm of colon [facility] Start: 06-23-2025 PAP TESTING PAP TESTING [facility] Start: 10-02-2024 Screening for malign ant neoplasm of breast Mammogram Screening [facility] Start: 09-04-2024 Anxiety Screening Anxiety Screening [facility] Start: 09-04-2024 Depression Screening Depression Scre ening [facility] Start: 11-18-2023 Covid-19 Vaccine () Covid-19 Vaccine () [facility] Start: 11-18-2023 Influenza vaccination C [facility] Start: 09-23-2023 Mammography MAMMOGRAM [facility] Start: 09-23-2023 Screening for malign ant neoplasm of breast Mammogram Screening [facility] Start: 09-05-2023 End: 12-05-2023 CBC W Auto Differential panel - Blood COMPLETE BLOOD COUNT AND DIFFERENTIAL Lab Routine Screening for deficiency anemia Expected: 09/05/2023, Expires: 12/05/2023 [facility] Comment on above: Expected: 09/05/2023 , Expires: 12/05/2023 Start: 09-05-2023 End: 12-05-2023 Comprehensive metabolic 2000 panel - Serum or Plasma COMPREHENSIVE METABOLIC PANEL Lab Routine Wellness examination Expected: 09/05/2023, Expires: 12/05/2023 [facility] Comment on above: Expected: 09/05/2023 , Expires: 12/05/2023 Start: 09-05-2023 End: 12-05-2023 Lipid 1996 panel - Serum or Plasma LIPID PANEL BASIC Lab Routine Lipid screening Expected: 09/05/2023, Expires: 12/05/2023 [facility] Comment on above: Expected: 09/05/2023 , Expires: 12/05/2023 Start: 06-24-2023 Screening for malign ant neoplasm of cervix Cervical Cancer Screening [facility] Start: 11-17-2022 Covid-19 Vaccine ( season) Covid-19 Vaccine () [facility] Start: 11-17-2022 Influenza vaccination [facility] Start: 09-06-2022 End: 11-06-2022 CBC W Auto Differential panel - Blood CBC + DIFF Lab Routine Screening for deficiency anemia Expected: 09/06/2022, Expires: 11/06/2022 [facility] Work Phone: Comment on above: Expected: 09/06/2022 , Expires: 11/06/2022 Start: 09-06-2022 End: 11-06-2022 Comprehensive metabolic 2000 panel - Serum or Plasma COMP METABOLIC PANEL Lab Routine Wellness examination Expected: 09/06/2022, Expires: 11/06/2022 [facility] Work Phone: Comment on above: Expected: 09/06/2022 , Expires: 11/06/2022 Start: 09-06-2022 End: 11-06-2022 Lipid 1996 panel - Serum or Plasma LIPID PANEL BASIC Lab Routine Lipid screening Expected: 09/06/2022, Expires: 11/06/2022 [facility] Work Phone: Comment on above: Expected: 09/06/2022 , Expires: 11/06/2022 Start: 03-09-2022 [facility] Work Phone: Start: 04-18-2021 COVID-19 VACCINE (4 - Booster for Pfizer series) COVID-19 VACCINE (4 - Booster for Pfizer series) [facility] Start: 04-18-2021 COVID-19 VACCINE (4 - Pfizer series) COVID-19 VACCINE (4 - Pfizer series) [facility] Start: 2014 SHINGRIX VACCINE (1 of 2) SHINGRIX VACCINE (1 of 2) [facility] Start: 2009 COLOGUARD (FIT-DNA) COLOGUARD (FIT-D NA) [facility] Start: 2009 Colonoscopy COLONOSCOPY [facility] Start: 2009 COLORECTAL CANCER SCREENING COLORECTAL CANCER SCREENING [facility] Start: [address] COLONOGRAPHY [facility] Start: 2009 DIABETES SCREEN DIABETES SCREEN [facility] Start: 2009 FECAL OCCULT BLOOD FECAL OCCULT BLOO D [facility] Start: 2009 LIPID SCREEN LIPID SCREEN [facility] Start: 2009 Screening for malign ant neoplasm of colon [facility] Start: 2009 SIGMOIDOSCOPY SIGMOIDOSCOPY [facility] Start: 2004 Mammography MAMMOGRAM [facility] Start: 1994 HPV TESTING HPV TESTING [facility] Start: 1983 Urine microalbumin profile DTAP,TDAP,TD (1 - Tdap) [facility] Start: 1982 HIV SCREENING HIV SCREENING [facility] Start: 1982 HIV screening HIV Screening [facility] COLOGUARD COLOGUARD Lab Ro utine Screening for colon cancer Ordered: 09/06/2022 [facility] Work Phone: Comment on above: Ordered: 09/06/2022 End: 10-04-2024 DBT Breast - bilateral screening SURJIT SCREENING W MIRTA Radiology Routine Encounter for screening mammogram for breast cancer 1 Occurrences starting 09/05/2023 until 10/04/2024 [facility] Work Phone: Comment on above: 1 Occurrences starti ng 09/05/2023 until 10/04/2024 DBT Breast - bilater al screening SURJIT SCREENING W MIRTA Radiology Routine Encounter for screening mammogram for breast cancer 10/03/2023 1:09 PM EDT [facility] Work Phone: End: 10-26-2023 SURJIT DIAGNOSTIC RIGHT SURJIT DIAGNOSTIC RIGHT Radiology Routine Abnormal mammogram 1 Occurrences starting 09/26/2022 until 10/26/2023 [facility] Work Phone: Comment on above: 1 Occurrences starti ng 09/26/2022 until 10/26/2023 End: 10-06-2023 SURJIT SCREENING SURJIT SCREENING Radiology Routine Encounter for screening mammogram for malignant neoplasm of breast 1 Occurrences starting 09/06/2022 until 10/06/2023 [facility] Work Phone: Comment on above: 1 Occurrences starti ng 09/06/2022 until 10/06/2023 Patient Education [facility] Work Phone: Patient referral [facility] Work Phone: End: 10-26-2023 US BREAST LTD RIGHT US BREAST LTD RIGHT Radiology Routine Abnormal mammogram 1 Occurrences starting 09/26/2022 until 10/26/2023 [facility] Work Phone: Comment on above: 1 Occurrences starti ng 09/26/2022 until 10/26/2023 [facility] Immunizations Immunization Date Immunization Notes Care Provider Fa [facility] 09-05-2023 tetanus toxoid, redu hiral diphtheria toxoid, and acellular pertussis vaccine, adsorbed Johan Chavez MD Work Phone: [facility] 02-21-2021 Covid (Pfizer) [facility] 06-24-2020 Covid (Pfizer) [facility] 06-03-2020 Covid (Pfizer) [facility] 02-05-2020 Influenza, injectabl e, Madin [place] Canine Kidney, preservative free, quadrivalent Johan Chavez MD Work Phone: [facility] 02-05-2020 influenza virus vaccine, unspecified formulation Johan Chavez MD Work Phone: [facility] 11-04-2004 hepatitis A and hepatitis B vaccine Johan Chavez MD Work Phone: [facility] 05-17-2004 hepatitis A and hepatitis B vaccine Johan Chavez MD Work Phone: [facility] 04-01-2004 hepatitis A and hepatitis B vaccine Johan Chavez MD Work Phone: [facility] Payers Date Payer Category Payer Self-pay [id number] 2024 Unknown [id number] 2022 Unknown GNOSTICISM SELF P AY GNOSTICISM SELF PAY GENERIC [id number] 2022-Present Other [id number] 2011 Unknown [id number] Unknown [id number] Unknown [id number] Social History Date Type Detail Facility Start: 03-09-2022 End: 04-06-2023 Tobacco smoking status NHIS Unknown if ever smoked [facility] Start: 07-22-2020 None [facility] Start: 07-22-2020 Homeless [facility] Start: 07-22-2020 Non-smoker [facility] Start: 1965 Sex Assigned At Female [facility] Start: 09-06-2022 End: 02-17-2024 Tobacco smoking status NHIS Never smoked tobacco [facility] History of tobacco use Passive smoker [facility] Start: 04-27-2020 End: 09-06-2022 Tobacco use and exposure Smokeless tobacco non-user [facility] Start: 09-06-2022 End: 09-05-2023 Alcohol intake Ex-drinker (finding) [facility] Start: 09-06-2022 History SDOH Alcohol Frequency 1 [facility] Start: 09-06-2022 History SDOH Alcohol Std Drinks 0 [facility] Start: 09-06-2022 History SDOH Social Connections Phone 5 [facility] Start: 09-06-2022 History SDOH Social Connections Get Together 2 [facility] Start: 09-06-2022 History SDOH Social Connections Adventism 3 [facility] Start: 09-06-2022 History SDOH Physical Activity MPS 12 [facility] Start: 09-06-2022 Education 21 [facility] Start: 1965 Sex Assigned At Not on file [facility] Start: 09-06-2022 End: 09-05-2023 History of Social function [facility] Start: 09-06-2022 End: 09-05-2023 Social connection and isolation panel [facility] Do you belong to any clubs or organizations such as mu-ism groups, [employer], fraternal or athletic groups, or school groups? Yes [facility] Are you now , , , , never or living with a partner? [facility] How often to you hav e a drink containing alcohol? Never [facility] How many standard dr inks containing alcohol do you have on a typical day? Patient does not drink [facility] Do you feel stress - tense, restless, nervous, or anxious, or unable to sleep at night because your mind is troubled all the time - these days [OSQ] Not at all [facility] (I/We) worried yamila er (my/our) food would run out before (I/we) got money to buy more. Never true [facility] In the past 12 month s, was there a time when you were not able to pay the mortgage or rent on time? No [facility] Start: 09-06-2022 Gender identity Identifies as female gender (finding) [facility] Start: 09-06-2022 Sexual orientation Heterosexual (finding) [facility] Start: 04-27-2020 Alcoholic beverage intake Not Asked [facility] Start: 03-28-2020 End: 04-27-2020 Exposure to SARS-CoV-2 (event) Not sure [facility] Clinical Notes 04-27-2020 to 11-19-2024 Note Date & Type Note Facility 11-19-2024 Progress note [facility] 11-19-2024 Progress note Note Date/Time November 19, 2024 11:13am [facility] [address], [address] [place] [address] OFFICE VISIT Date of Service: 11/19/24 MR#: [id number] Acct: [id number] Name: JACQUELINE SERRA Rep #: [id number] : 1965 Provider: DILLON Winn Age/Sex: 59/F Location: [email or web address] Status: Signed Intake Vital Signs 02/17/24 13:58 11/19/24 11:08 Height 5 ft 6 in BP 120/60 Position Sitting Respiration 16 Pulse 68 Temp 98.2 F Temp Source Oral Pulse Oximetry (%) 99 Oxygen Delivery Method room air Intake Visit Reasons: SORE THROAT Chief Complaint: sore throat Accompanied by: Self Allergies No Known Allergies Allergy (Verified 11/19/24 11:01) Medications ?Medication ?Instructions ?Recorded ?Confirmed ?Type NK 11/19/24 11/19/24 History Nurse's Note: Patient here for a sore throat. Patient states that her throat started off with it scratchy and then Mon into Tues it started hurting. Patient states that she feels horrible and Mon into Tues she had a fever. Patient states it she don't take Tylenol every 4 hours that her throat feels like its on fire. [facility] Medical History Contact dermatitis due to poison sonya Allergic conjunctivitis history of broken ankle Surgical History History of cholecystectomy Social History Smoking Status: Never smoker alcohol intake: never HPI HPI Chief Complaint: sore throat Details: JACQUELINE SERRA, is a 59 F who presents to the office today for HPI: Patient complains of about 3 days of generally not feeling well along with a sore throat. She states that she does have a mild productive cough. She notes that symptoms do seem to be improving however her throat still remains extremelysore. She otherwise denies any recent fever. ROS: As noted in HPI Physical Exam: VITALS: Reviewed. GEN: Healthy appearing, well-developed, NAD. PSYCH: AOx3. Normal memory, mood, and affect. HEENT -Eyes: -No discharge or redness; -Ears: -Mouth and throat: Moist mucous membranes. Mild tonsillar erythema with no exudate noted NECK: CV: Regular rate and rhythm LUNGS: Normal respiratory effort. Lungs clear bilaterally. SKIN: Warm, well perfused. No skin rashes or abnormal lesions noted. MSK: Normal gait. NEURO: Ambulating with no limitations. Normal muscle strength and tone. No focaldeficits. Results POC Rapid Strep A Office Rapid Strep A Negative Last Edit by Dalia Aleman MA on 11/19/24 11: 10 Coding Level of Care Code Off vis,est,level 3 Diagnoses Acute pharyngitis, unspecified etiology J02.9 Pharyngitis/tonsillitis etiology: unspecified etiology Assessment and Plan Assessment and Plan (1) Pharyngitis, acute: Status: Acute Qualifiers: Pharyngitis/tonsillitis etiology: unspecified etiology Qualified Code(s): J02.9 - Acute pharyngitis, unspecified Plan: - suspect viral - No unilateral tonsillar swelling - Strep negative in the office today - Discussed supportive care treatment with fluids, rest and analgesia. - The patient may also use OTC cough and cold meds as needed and warm salt water gargles, throat lozenges and/or OTC throat spray as needed. - Contagious disease precautions discussed - The patient should follow up in one week if symptoms persist or worsen Orders: Orders POC Rapid Strep A Today J02.9 - Acute pharyngitis, unspecified 11/19/24 1113 <Electronically signed by Scot Fall> Date _ Scot CARRANZA Cosigner Signature: Date (if applicable) CC: ~ [place] [facility] Work Phone: [phone]) 635-771308-26-2025 NotePatient Outreach (FAMMAS) JACQUELINE SERRA ([id number]) 1965 F Date Time Provider Department 11/11/24 JOHAN CHAVEZ During your visit today, we recorded the following information about you: Allergies As of Date: 11/11/2024 (No Known Allergies) Date Reviewed: 09/05/2023 Reviewed by: Deidra Rush LPN - Fully Assessed Visit Diagnosis:Encounter for screening mammogram for breast cancer [Z12.31] Order(s):SURJIT SCREENING W MIRTA [[id number]] Order #: [id number] FUTURE Problem List As Of Date 11/11/2024 Noted Resolved Neutropenia [D70.9] 07/22/2009 Anemia [D64.9] 07/22/2009 Chronic cholecystitis with calculus [K80.10] 10/14/2012 Allergic conjunctivitis [H10.10] 03/10/2023 Diagnosed: 03/10/2023 Migraine headaches [G43.909] 01/09/2017 Diagnosed: 03/10/2023 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 Serra, We are pleased to inform you that the results of your recent breast imaging exam on 10/03/2023 are normal. Breast tissue can be either dense or not dense. Dense tissue makes it harder to find breast cancer on a mammogram and also raises the risk of developing breast cancer. Your breast tissue is not dense. Talk to your healthcare provider about breast density, risks for breast cancer, and your individual situation. Early detection of cancer is very important. We also understand recommendations regarding breast cancer screening are controversial. Please discuss with your primary care provider which strategy is best for you and whether a mammogram is right for you. Your imaging studies and report will be kept on file at [facility] as part of your permanent medical record and are available for your continuing care. Thank you for allowing us to help in meeting your health care needs. Sincerely, Dr. Varner Interpreting Radiologist [facility] (Normal over 40) [facility]07-18-2024 Miscellaneous Notes* Letter - Coordinator, Mammography - 10/04/2023 12:06 PM EDT October 04, 2023 PID: [id number] Jacqueline NiviaCaro Serra [address] [id number] Dear Ms. Serra, We are pleased to inform you that the results of your recent breast imaging exam on 10/03/2023 are normal. Breast tissue can be either dense or not dense. Dense tissue makes it harder to find breast cancer on a mammogram and also raises the risk of developing breast cancer. Your breast tissue is not dense. Talk to your healthcare provider about breast density, risks for breast cancer, and your individual situation. Early detection of cancer is very important. We also understand recommendations regarding breast cancer screening are controversial. Please discuss with your primary care provider which strategy is best for you and whether a mammogram is right for you. Your imaging studies and report will be kept on file at [facility] as part of your permanent medical record and are available for your continuing care. Thank you for allowing us to help in meeting your health care needs. Sincerely, Dr. Varner Interpreting Radiologist [facility] (Normal over 40) documented in this encounterCleveland [id number] History of Present illness Narrative* Debbie Francois Mammo Tech - 10/03/2023 11:30 AM EDT Radiology Service Progress Note PATIENT NAME: Jacqueline Serra DATE OF SERVICE: October 03, 2023 TIME: 11:35 AM PATIENT IDENTITY VERIFICATION COMPLETED USING TWO (2) IDENTIFIERS: Name and Date of confirmedby patient verbally. FALL SCREENING: Has the patient had 2 falls in the last year or 1 fall with injury or currently using an Ambulatory Assistive Device (Walker, Cane, Wheelchair, Crutches, etc.)? No PATIENT GENDER DATA: Female. status: : No status: NO. PATIENT RELEVANT IMPLANT DATA REVIEWED: Not Applicable PATIENT PRESENTS WITH AN IMPLANTABLE OR ATTACHED AIRPORT SHUTTLE DRIVER: No RADIOLOGY DEPARTMENT: Mammography PERIPHERAL IV DATA: Not applicable SIGNED BY: Venu Hernandez October 03, 2023 11:35 AM documented in this encounterWilson Health06-19-2024 History of Present illness Narrative* Johan Chavez MD - 09/05/2023 4:16 PM EDT Subjective Jacqueline Serra is a 58 year old female. Jacqueline presents today for her annual wellness visit. Review of Systems Constitutional: Negative. HENT: Negative. [...] Medications were reviewed and verified. Objective BP 122/74 (BP Site: Left Arm, BP Position: Sitting, BP Cuff Size: Regular Adult) Pulse 68 Temp 36.4 C (97.6 F) (Temporal) Resp 18 Ht 168.9 cm (5' 6.5) Wt 78.9 kg (174 lb) SpO2 97% BMI 27.66 kg/m Physical Exam Vitals reviewed. Constitutional: Appearance: [...] Encounter Diagnosis ICD-10-CM 1. Wellness examination Z00.00 COMPREHENSIVE METABOLIC PANEL 2. Encounter for screening mammogram for breast cancer Z12.31 SURJIT SCREENING W MIRTA 3. Encounter for immunization Z23 TDAP VACCINE, AGE 7+ YR (ADACEL, BOOSTRIX) 4. Lipid screening Z13.220 LIPID PANEL BASIC 5. Screening for deficiency anemia Z13.0 COMPLETE BLOOD COUNT AND DIFFERENTIAL All open preventative health maintenance topics discussed with patient in detail. This includes risks and benefits regarding vaccines, cancer screening, healthy life style, and diet. Check labs as above. Monitor blood pressure regularly. Exercise as tolerated. Maintain good diet. Follow-up in 6 months. Johan Chavez MD * Deidra Rush LPN - 09/05/2023 3:20 PM EDT Patient in the office today for an annual Wellness exam. Health Maintenance Due: HIV Screening declined DTaP,Tdap,Td Vaccine(1 - Tdap) ordered Shingrix Vaccine(1 of 2) declined Covid-19 Vaccine(4 - season) declined Cervical Cancer Screening Mammogram Screening declined Deidra Rush LPN September 05, 2023 3:12 PM Vaccine administered without difficulty, and documented in chart. Patient tolerated injection well,and denied pain or discomfort at injection site. VIS provided to patient during office visit. Deidra Rush LPN September 05, 2023 3:34 PM documented in this encounterWilson Health01-19-2024 Discharge summary Author Arnold Alejandra [facility] April 06, 2023 10:24pm Note Date/Time April 06, 2023 8 :33pm [facility] Medical Records Department [address] [place] [address] Emergency Department Summary 04/06/23 MR#: [id number] Acct: [id number] Name: JACQUELINE SERRA Rep #:[id number] : 1965 57 From: Arnold Alejandra DO PCP: Dr. Johan Chavez MD Status:REG ER Location: ED HPI HPI - URI History of Present Illness Chief Complaint: Nausea/Vomiting Narrative Narrative: 57-year-old female presenting with nausea, vomiting, body aches, chills. Patient states she was around her sick grandson 3 days ago and picked him up to drop him off at the family's house because he had flulike symptoms. Patient developed her symptoms today. She has been vomiting today. She states she is retched so hard that she hurt her lower back. She has a history of back problems in the past. Denies any direct trauma. No loss of bladder or bowel control. No saddle anesthesia/paresthesia. Patient has not had a known fever at home. Patient has tried Zofran at home but unable to hold it down. This is not helping her vomiting. Her grandson had not been tested for anything and recovered without testing. [facility] Medical History Allergic conjunctivitis Contact dermatitis due to poison sonya history of broken ankle Home Medications benzonatate 100 mg capsule 200 mg (2 x 100 mg) PO TID PRN cough #30 caps 05/09/22 [Rx Last Taken Unknown] cyclobenzaprine 10 mg tablet 10 mg PO TID PRN Muscle Spasm #20 TABLETS 04/06/23 [Rx Last Taken Unknown] dicyclomine 10 mg capsule 10 mg PO TID PRN abdominal pain #20 caps 04/06/23 [Rx Last Taken Unknown] ondansetron 4 mg disintegrating tablet 4 mg PO Q8H PRN PRN Nausea #14 tabs 04/06/23 [Rx Last Taken Unknown] promethazine 25 mg tablet 25 mg PO TID PRN nausea and vomiting #30 tabs 04/06/23[Rx Last Taken Unknown] Allergy/AdvReac Type Severity Reaction Status Date / Time No Known Allergies Allergy Verified 04/06/23 19:58 Surgical History History of cholecystectomy Social History Smoking Status: Never smoker alcohol intake: never EXAM Physical Exam Const Vital Signs: 04/06/23 19:59 04/06/23 20:01 Temperature 97.4 F L 97.4 F L Temperature Source Temporal Temporal Pulse Rate 83 83 Respiratory Rate 28 H 28 H Blood Pressure 130/74 H 130/74 H Blood Pressure Mean 92 92 Pulse Ox 100 100 Oxygen Delivery Method Room Air Room Air Positive well nourished General Appearance ED: Negative for pallor HEENT Reports normocephalic Eyes PERRL and EOMs intact bilaterally Chest Wall inspection of chest normal and palpation of chest normal Resp normal respiratory effort and clear to auscultation bilaterally Auscultation: Negative for rales, rhonchi or wheezes Cardio regular rate and regular rhythm GI normal to inspection, nondistended, normoactive bowel sounds and non-distended Auscultation: normoactive bowel sounds Palpation: soft Narrative: Deferred Back/Spine Back/Spine Narrative: Left lumbar paraspinal musculature tenderness. No midline spinal deformity, tenderness, step-off. Extremity General Extremety ED: Negative for edema or tenderness General Extremity: Negative for edema Neuro oriented x3 and CN's II-XII intact bilaterally Sensorium / Orientation: alert Motor Exam: strength 5/5 throughout Psych mental status grossly normal Attitude: No agitated Skin no rashes or lesions noted and no wounds General Skin Exam: Negative for jaundice or pallor MDM MDM MDM Narrative Medical decision making narrative: Patient presenting with viral syndrome. Likely contracted from her grandson whohad a viral syndrome. Patient states Zofran not working. IV line was established and she is given Toradol through the IV. She is given a IM shot of Reglan and I IM shot of Norflex for her lower back pain. She does appear to be tender in the left lumbar paraspinal musculature. Differential includes COVID, influenza, RSV, other viral etiology, dehydration, electrolyte abnormalities, lumbar strain, UTI, kidney stone. CBC and BMP were obtained. Urinalysis to assess for UTI. hCG to assess for . Patient given a liter normal saline. Will reevaluate. Reevaluation 8:50 PM patient is doing better. She states her pain and her nausea are better. She still feels some cramping in herstomach. Discussed normal blood work and negative hCG. COVID, influenza, RSV all negative. Patient reevaluated again at 10:15 PM and is sleeping comfortably. Urinalysis is negative for infection. Patient will be discharged home with Zofran and Phenergan which she can alternate. She is given Bentyl andcyclobenzaprine for her lower back. Recommend drink plenty fluids. Patient and wish to have the medicines filled here at the hospital before being discharged. These were sent to the pharmacy. Impression: 1. Viral syndrome 2. Nausea/vomiting 3. Diarrhea 4. Lumbar strain Lab Data Attestation: I reviewed the patient's lab results. Labs: Laboratory Results - last 24 hr 04/06/23 04/06/23 20:20 21:20 WBC 7.1 RBC 4.93 Hgb 14.2 Hct 42.3 MCV 85.8 MCH 28.8 MCHC 33.6 RDW Std Deviation 38.6 RDW Coeff of Agnieszka 12.3 Plt Count 376 MPV 9.1 Immature Gran % (Auto) 0.400 Neut % (Auto) 93.3 H Lymph % (Auto) 3.5 L Turner % (Auto) 2.2 Eos % (Auto) 0.3 Baso % (Auto) 0.3 Absolute Neuts (auto) 6.7 Absolute Lymphs (auto) 0.25 L Nucleated RBC % 0 Differential Comment SCANNED Sodium 141 Potassium 3.4 L Chloride 113 H Carbon Dioxide 22.0 Anion Gap 6 BUN 11 Creatinine 0.86 Estim Creat Clear Calc 80.14 Est GFR (MDRD) Af Amer 87 Est GFR (MDRD) Non-Af 72 BUN/Creatinine Ratio 12.8 Glucose 120 H Calcium 9.5 Serum , Qual NEGATIVE Urine Color Yellow Urine Clarity Clear Urine pH 8.0 Ur Specific Dodge 1.015 Urine Protein 30 H Urine Glucose (UA) Normal Urine Ketones 150 A* Urine Occult Blood Negative Urine Nitrite Negative Urine Bilirubin 1 H Urine Urobilinogen Normal Ur Leukocyte Esterase 500 H Urine RBC 0-5 SEEN Urine WBC 25-50 SEEN Ur Squamous Epith Cells 0-5 SEEN Urine Bacteria 0 SEEN Urine Mucus RARE Discharge Plan Triage Chief Complaint: Nausea/Vomiting ED Provider: Arnold Alejandra Dx/Rx/DC Orders Instructions: ED Back Sprain/Strain, ED Gastroenteritis, Viral (Adult) Prescriptions: New promethazine 25 mg tablet 25 mg PO TID PRN (Reason: nausea and vomiting) Qty: 30 0RF dicyclomine 10 mg capsule 10 mg PO TID PRN (Reason: abdominal pain) Qty: 20 0RF ondansetron 4 mg tablet,disintegrating 4 mg PO Q8H PRN PRN (Reason: Nausea) Qty: 14 0RF cyclobenzaprine 10 mg tablet 10 mg PO TID PRN (Reason: Muscle Spasm) Qty: 20 0RF No Action benzonatate 100 mg capsule 200 mg PO TID PRN (Reason: cough) Qty: 30 0RF Primary Care Provider: Johan Chavez Referrals: Johan Chavez MD [Primary Care Provider] - Disposition Disposition: Home, Self Care What to do if you have Problems For any increased pain, shortness of breath, bleeding, nausea or vomiting, chestpain, or any unexpected problems, contact your Primary Care Provider. Call [facility] ([phone]) or report to the closest Emergency Room. Call 911 if necessary. 04/06/232223 <Electronically signed by Arnold Alejandra DO> Cosigner Signature (if applicable): CC: Dr. Johan Chavez MD ~ Signed [facility] Work Phone: [phone]) 193-908007-11-2023 Miscellaneous Notes* Telephone Encounter - Johan Chavez MD - 09/26/2022 1:10 PM EDT ordered * Telephone Encounter - Deidra Rush LPN - 09/26/2022 9:31 AM EDT Mammogram from 09-22-2022 needs additional imaging. Patient had Mammogram completed at [facility]. They stated they will not do testing until order received by you. Deidra Rush LPN September 26, 2022 9:33 AM documented in this encounterWilson Health07-11-2023 Miscellaneous Notes* Telephone Encounter - Johan Chavez MD - 09/26/2022 1:09 PM EDT signed * Telephone Encounter - Deidra Rush LPN - 09/26/2022 11:01 AM EDT Please sign attached orders for patient to receive additional imaging from Mammogram results Patient requesting orders to be sent to [facility] This nurse informed patient that orders will be sent once signed by Dr. Chavez Patient verbalized understanding, thanked nurse for information. Deidra Rush LPN September 26, 2022 11:45 AM documented in this encounterWilson Health07-11-2023 Miscellaneous Notes* Telephone Encounter - Jacqueline Cole LPN - 09/26/2022 11:34 AM EDT Katiana from [facility] called asking for additional orders due to abnormal mammogram. [facility] does not have standing orders. Orders needed as follows: Right diagnostic mammogram Right breast [employer] Katiana call back # [phone] Katiana said she can get the order from the computer chart,however,order should be faxed as well to insure they have what they need Thank you, Jacqueline Cole LPN September 26, 2022 11:33 AM documented in this encounterWilson Health07-10-2023 Miscellaneous Notes* Telephone Encounter - Deidra Rush LPN - 09/25/2022 5:28 PM EDT Patient notified of result information on My Chart. Notification will be sent to this nurse if message has not been read within 2 days. Patient will be contacted by another form of communication if notification of not reading My Chart message is received. Deidra Rush LPN September 25, 2022 5:28 PM * Telephone Encounter - Deidra Rush LPN - 09/25/2022 5:27 PM EDT ----- Message from Johan Chavez MD sent at 09/25/2022 4:25 PM EDT ----- Cologuard negative documented in this encounterWilson Health07-10-2023 Miscellaneous Notes* Telephone Encounter - Jesus Turner - 09/25/2022 3:42 PM EDT Patient called to schedule callback mammo documented in this encounterWilson Health07-10-2023 Miscellaneous Notes* Telephone Encounter - Jacqueline Cole LPN - 09/25/2022 11:19 AM EDT Patient was unaware additional imaging needed. Patient informed verbalized understanding and will call to schedule. Jacqueline Cole LPN September 25, 2022 11:20 AM * Telephone Encounter - Jacqueline Cole LPN - 09/25/2022 11:19 AM EDT ----- Message from Johan Chavez MD sent at 09/24/2022 9:20 PM EDT ----- Check to see if patient has additional imaging scheduled documented in this encounterWilson Health07-07-2023 Miscellaneous Notes* Letter - Coordinator, Mammography - 09/22/2022 10:50 AM EDT September 25, 2022 PID: [id number] Jacqueline Serra [id number] [id number] Dear Ms. Serra, Your recent breast imaging exam on 09/22/2022 showed a possible finding that requires additional imaging studies for a complete evaluation. Most such findings are probably benign (not cancer). If you have a healthcare provider who ordered/prescribed your screening mammogram: Please call [phone] or EXT: [phone] to schedule an appointment for your additional imaging (if youhave not already done so). If you DO [...] and reports are kept on file at [facility] as part of your permanent medical record, and are available for your continuing care. Thank you for allowing us to help in meeting your health care needs. Sincerely, Dr. Varner Interpreting Radiologist [facility] (Additional imaging) documented in this encounterWilson Health06-21-2023 History of Present illness Narrative* Johan Chavez MD - 09/06/2022 3:05 PM EDT This note was created using DoctorCriter. Subjective Jacqueline Serra is a 57 year [...] (Temporal) Resp 14 Ht 168.9 cm (5' 6.5) Wt 87 kg (191 lb 12.8 oz) [...] SCREENING 5. Screening for colon cancer Z12.11 COLOGRD Johan Chavez MD * Tere Hansen LPN - 09/06/2022 2:20 PM EDT Patient in office today for an annual wellness exam. Jacqueline is having problems with her right ear, she has popping,she can't hear out of it as well as sheuse to, sometimes she gets wax occassionally Health [...] 06, 2022 2:12 PM documented in this encounterWilson Health02-09-2021 History of Present illness Narrative* Odessa Ackerman (Rt), Tech - 04/27/2020 10:50 AM EST Radiology Service Progress Note PATIENT NAME: Jacqueline Serra DATE OF SERVICE: April 27, 2020 TIME: 10:51 AM PATIENT IDENTITY VERIFICATION COMPLETED USING TWO (2) IDENTIFIERS: Name and Date of confirmedby patient verbally. FALL SCREENING: Has the patient had 2 falls in the last year or 1 fall with injury or currently using an Ambulatory Assistive Device (Walker, Cane, Wheelchair, Crutches, etc.)? No PATIENT GENDER DATA: Female. status: : No status: NO. PATIENT RELEVANT IMPLANT DATA REVIEWED: Yes RADIOLOGY DEPARTMENT: General X-ray: Exam(s) Completed: Lower Extremity X- Ray(s): Foot, Right and Wt. Bearing: PERIPHERAL IV DATA: Not applicable SIGNED BY: RT Eliza April 27, 2020 10:51 AM [facility] noteNo assessment information availableWCommunity [facility] Work Phone: Evaluation note* Diagnosis Wellness examination- Primary Lipid screening Screening for lipoid disorders Screening for deficiency anemia Screening for other and unspecified deficiency anemia Encounter for screening mammogram for malignant neoplasm of breast Other screening mammogram Screening for colon cancer Special screening for malignant neoplasms, colon documented in this encounter [facility]* Diagnosis Abnormal mammogram- Primary Abnormal mammogram, unspecified documented in this encounter [facility] note* Diagnosis Wellness examination- Primary Encounter for screening mammogram for breast cancer Encounter for immunization Need for other specified prophylactic vaccination against single bacterial disease Lipid screening Screening for lipoid disorders Screening for deficiency anemia Screening for other and unspecified deficiency anemia documented in this encounter [facility] note* Diagnosis Encounter for screening mammogram for breast cancer documented in this encounter [facility] note* Diagnosis Onset Date Resolution Status Admit Date Pharyngitis, acute acute Septem 2024 10:57am [facility] Work Phone: Hospital Discharge instructions Additional Instructions Plenty of fluids and rest. Water, 7-Up and Gatorade. Increase your diet slowly as tolerated. Zofran as needed for nausea you may dissolve on your tongue or swallow it. If you do not need to take it at all. Tylenol as needed for fever and body aches. Follow-up with your doctor if not improving or return if worse.[facility] Work Phone: Reason for referral (narrative)* Diagnostic Procedure Only (Routine) - Pending Review Specialty Diagnoses / Procedures Referred By Zhao soliman Referred To Contact [facility] Diagnoses Encounter for screening mammogram for malignant neoplasm of breast Procedures SURJIT SCREENING SCREENING MAMMOGRAPHY BI 2-VIEW BREAST INC Johan Castillo MD [address] [place] [address] [facility] [address] [place] [address] Referral ID Status Reason Start Date Expiration Date Visits Requested Visits Authorized [id number] Pending Review Auto-Generat ed Referral 09/06/2022 10/06/2023 1 1 [facility] for referral (narrative)* Diagnostic Procedure Only (Routine) - Pending Review Specialty Diagnoses / Procedures Referred By Contac t Referred To Contact [facility] Diagnoses Abnormal mammogram Procedures US BREAST LTD RIGHT US BREAST UNI REAL TIME WITH IMAGE LIMITED Johan Chavez MD [address] [place] [address] [facility] [address] [place] [phone] Referral ID Status Reason Start Date Expiration Date Visits Requested Visits Authorized [id number] Pending Review Auto-Generat ed Referral 09/26/2022 10/26/2023 1 1 * Diagnostic Procedure Only (Routine) - Pending Review Specialty Diagnoses / Procedures Referred By Zhao t Referred To Contact [facility] Diagnoses Abnormal mammogram Procedures SURJIT DIAGNOSTIC RIGHT DIAGNOSTIC MAMMOGRAPHY COMPUTER-AIDED DETCJ UNI Johan Chavez MD [address] [place] [address] [facility] [address] [place] [phone] Referral ID Status Reason Start Date Expiration Date Visits Requested Visits Authorized [id number] Pending Review Auto-Generat ed Referral 09/26/2022 10/26/2023 1 1 [facility] for referral (narrative)* Diagnostic Procedure Only (Routine) - Pending Review Specialty Diagnoses / Procedures Referred By Zhao t Referred To Contact [facility] Diagnoses Encounter for screening mammogram for breast cancer Procedures SURJIT SCREENING W MIRTA SCREENING DIGITAL BREAST TOMOSYNTHESIS BI SCREENING MAMMOGRAPHY BI 2-VIEW BREAST INC CAD Johan Chavez MD [address] [place] [address] [facility] [address] [place] [address] Referral ID Status Reason Start Date Expiration Date Visits Requested Visits Authorized [id number] Pending Review Auto-Generat ed Referral 09/05/2023 10/04/2024 1 1 [facility]Reason for referral (narrative)No reason for referral information availableWest [place] [facility] Work Phone: Reason for visit Narrative* Diagnostic Procedure Only (Routine) - Closed Specialty Diagnoses / Procedures Referred By Contac t Referred To Contact [facility] Diagnoses Encounter for screening mammogram for breast cancer Procedures SURJIT SCREENING W MIRTA SCREENING DIGITAL BREAST TOMOSYNTHESIS BI SCREENING MAMMOGRAPHY BI 2-VIEW BREAST INC CAD Johan Chavez MD [address] [place] [address] [facility] [address] [place] [address] Referral ID Status Reason Start Date Expiration Date V isits Requested Visits Authorized [id number] Closed Financial Clearance Required - Self Pay Patient Cleared - [employer] 09/05/2023 10/04/2024 1 1 [facility] Summary Purpose Family History No Family History Records FoundNo Family History Records FoundNo Family History Records FoundNo Family History Records Found Advance Directives No Advanced Directives Records Found Advance Directive Response Recorded Date/ Time Living Will Yes March 09, 022 8:38am Power of Claims Clerk Yes March 09, 2022 8:38am Name of Medical Power of Claims Clerk Galen Rodriguezmarilee March 09, 2022 8:38am Advance Directive Response Recorded Date/ Time Living Will Yes April 06 8:10pm Power of Claims Clerk Yes April 06, 2023 8:10pm Name of Medical Power of Claims Clerk galen gayathri April 06, 2023 8:10pm Chief Complaint and Reason for Visit Chief Complaint N/V Chief Complaint VOMITING Chief Complaint Admit Date SORE THROAT November 19, 2024 10:57am Reason for Visit Admit Date Pharyngitis, acute November 19, 2024 10:57am Additional Source Comments INFORMATION SOURCE (unrecogn ized section and content) DATE CREATED AUTHOR 07/08/2020 [facility] [place] DATE CREATED AUTHOR AUTHOR'S ORGANIZ ATION 11/21/2024 [facility] DATE CREATED AUTHOR AUTHOR'S ORGANIZ ATION 12/19/2024 [facility] DATE CREATED AUTHOR AUTHOR'S ORGANIZ ATION 12/22/2024 [facility] Goals (unrecognized section and content) Goals may be documented in a n alternate sectionGoals may be documented in an alternate sectionGoals may be documented in an alternate section Source Comments (unrecognize d section and content) In the event this informatio n is protected by the Federal Confidentiality of Alcohol and Drug Abuse Patient Records regulations: The Federal rules restrict any use of the information to criminally investigate or prosecute any alcohol or drug abuse patient.[facility] HealthIn the event this information is protected by the Federal Confidentiality of Alcohol and Drug Abuse Patient Records regulations: The Federal rules restrict any use of the information to criminally investigate or prosecute any alcohol or drug abuse patient.Wilson HealthIn the event this information is protected by the Federal Confidentiality of Alcohol and Drug Abuse Patient Records regulations: The Federal rules restrict any use of the information to criminally investigate or prosecute any alcohol or drug abuse patient.Wilson HealthIn the event this information is protected by the Federal Confidentiality of Alcohol and Drug Abuse Patient Records regulations: The Federal rules restrict any use of the information to criminally investigate or prosecute any alcohol or drug abuse patient.[facility] HealthIn the event this information is protected by the Federal Confidentiality of Alcohol and Drug Abuse Patient Records regulations: The Federal rules restrict any use of the information to criminally investigate or prosecute any alcohol or drug abuse patient.[facility] HealthIn the event this information is protected by the Federal Confidentiality of Alcohol and Drug Abuse Patient Records regulations: The Federal rules restrict any use of the information to criminally investigate or prosecute any alcohol or drug abuse patient.Wilson HealthIn the event this information is protected by the Federal Confidentiality of Alcohol and Drug Abuse Patient Records regulations: The Federal rules restrict any use of the information to criminally investigate or prosecute any alcohol or drug abuse patient.[facility] HealthIn the event this information is protected by the Federal Confidentiality of Alcohol and Drug Abuse Patient Records regulations: The Federal rules restrict any use of the information to criminally investigate or prosecute any alcohol or drug abuse patient.[facility] HealthIn the event this information is protected by the Federal Confidentiality of Alcohol and Drug Abuse Patient Records regulations: The Federal rules restrict any use of the information to criminally investigate or prosecute any alcohol or drug abuse patient.[facility] HealthIn the event this information is protected by the Federal Confidentiality of Alcohol and Drug Abuse Patient Records regulations: The Federal rules restrict any use of the information to criminally investigate or prosecute any alcohol or drug abuse patient.[facility] HealthIn the event this information is protected by the Federal Confidentiality of Alcohol and Drug Abuse Patient Records regulations: The Federal rules restrict any use of the information to criminally investigate or prosecute any alcohol or drug abuse patient.[facility] HealthIn the event this information is protected by the Federal Confidentiality of Alcohol and Drug Abuse Patient Records regulations: The Federal rules restrict any use of the information to criminally investigate or prosecute any alcohol or drug abuse patient.[facility] HealthIn the event this information is protected by the Federal Confidentiality of Alcohol and Drug Abuse Patient Records regulations: The Federal rules restrict any use of the information to criminally investigate or prosecute any alcohol or drug abuse patient.[facility] Reason for Visit (unrecogniz ed section and content) Reason Comments Yearly Exam Wellness CPE Specialty Diagnoses / Procedures Referred By Contac t Referred To Contact Family Medicine / FAMILY MEDICINE Diagnoses Wellness Procedures EST WELL VISIT Self Johan Chavez MD [address] [place] [address] Referral ID Status Reason Start Date Expiration Date V isits Requested Visits Authorized [id number] Closed Financial Clearance Required - Self Pay Patient Cleared - [employer] 09/06/2022 12/05/2022 1 1 Reason Comments Results Mammogram -Additiona l imaging needed Reason Comments Mammogram Result Call Back Reason Comments Results Reason Comments Orders Additional mammogram Reason Comments Orders Reason Comments Wellness Specialty Diagnoses / Procedures Referred By Contac t Referred To Contact [facility] Diagnoses urg Procedures urg Tyler Allen APRN.[employer] [address] [place] [address] [facility] [address] [address] [place] [address] Referral ID Status Reason Start Date Expiration Date V isits Requested Visits Authorized [id number] Closed OON/Self Pay Override Financial Clearance Required - Self Pay Patient Cleared - Qualified [id number] 04/27/2020 07/25/2020 2 2 Care Teams (unrecognized sec tion and content) Paper Feeder Relationship Specialty Start Date End Date Johan Chavez MD [address] [place] [address] PCP - General Family Medicine 09/01/22 [address] [facility] [address] [place] [address] Gastroenterology 09/01/22 Paper Feeder Relationship Specialty Start Date End Date Johan Chavez MD [address] [place] [address] PCP - General Family Medicine 09/01/22 Fausto Gibbons [address] [facility] [address] [place] [address] Gastroenterology 09/01/22 Paper Feeder Relationship Specialty Start Date End Date Johan Chavez MD [address] [place] [address] PCP - General Family Medicine 09/01/22 Fausto Gibbons [address] [facility] [address] [place] [address] Gastroenterology 09/01/22 Paper Feeder Relationship Specialty Start Date End Date Johan Chavez MD [address] [place] [address] PCP - General Family Medicine 09/01/22 Fausto Gibbons [address] [place] [address] Gastroenterology 09/01/22 Paper Feeder Relationship Specialty Start Date End Date Johan Chavez MD [address] [place] [address] PCP - General Family Medicine 09/01/22 Fausto Gibbons [address] [place] [address] Gastroenterology 09/01/22 Paper Feeder Relationship Specialty Start Date End Date Johan Chavez MD [address] [place] [address] PCP - General Family Medicine 09/01/22 Fausto Gibbons [address] [place] [address] Gastroenterology 09/01/22 Team Status: Active Member Role Status Dates Dr. Johan Chavez MD Family Provider Active Dr. Johan Chavez MD Primary Care Provider Active Team Status: Inactive Member Role Status Dates Dr. Johan Chavez MD Primary Care Provider Active Dr. Arnold Alejandra DO Emergency Provider Active Paper Feeder Relationship Specialty Start Date End Date Johan Chavez MD [address] [place] [address] PCP - General Family Medicine 09/01/22 Fausto Gibbons MD [address] [place] [address] Gastroenterology 09/01/22 Paper Feeder Relationship Specialty Start Date End Date Johan Chavez MD [address] [place] [address] PCP - General Family Medicine 09/01/22 Fausto Gibbons MD [address] [facility] [address] [place] [address] Gastroenterology 09/01/22 Paper Feeder Relationship Specialty Start Date End Date Johan Chavez MD [address] [place] [address] PCP - General Family Medicine 09/01/22 Fausto Gibbons MD [address] [facility] [address] [place] [address] Gastroenterology 09/01/22 Paper Feeder Relationship Specialty Start Date End Date Johan Chavez MD PCP - General 07/16/09 08/31/22 Team Status: Active Member Role/Relationship Status Dates Dr. Johan Chavez MD Primary Care Provider Active Team Status: Inactive Member Role/Relationship Status Dates Dr. Johan Chavez MD Primary Care Provider Active Start: November 19, 2024 End: November 19, 2024 Dr. Johan Chavez MD Referring Provider Active Start: November 19, 2024 End: November 19, 2024 DILLON Sterling Attending Provider Active Star t: November 19, 2024 End: November 19, 2024 FOR RECORDS PERTAINING TO PATIENTS WHO ARE [...] BE BASED ON THE PRIMARY CLINICAL RECORDS. [facility] [employer] [facility]. provides no warranty or guarantee of the accuracy or completeness of information in this document.
[2025-03-12] MEDS: Rabies Immune Globulin/PF 300 UNIT/ML, 5 ML VIAL 1500 UNIT IM (10:51)
[2025-03-12] MEDS: Rabies Immune Globulin/PF 300 UNIT/ML, 1 ML VIAL 180 UNIT IM (10:52)
--- NOTE | 2025-03-12 10:54 | ED.RN ---
RABIES VACCINE DOSE CONFIRMED PER PHARMACY . CONCENTRATION DIFFERENT. DOSES ALSO CONFIRMED WITH DR RAMIREZ. UNABLE TO SCAN
[2025-03-12 11:02] VITALS: BP 108/62; PULSE 770; RESP 16; TEMP 36.2; O2SAT 100
[2025-03-12 11:06] VITALS: BP 108/62; PULSE 770; RESP 16; TEMP 36.2; O2SAT 100
== END 2025-03-12 11:16 | disposition home or self-care (01) ==
PROVIDERS: Emergency Provider Student in an Organized Health Care Education/Training Program; PCP Family Medicine; Visit Provider Student in an Organized Health Care Education/Training Program
DX: S61.250A Open bite of right index finger without damage to nail, initial encounter (principal); X58.XXXA Exposure to other specified factors, initial encounter; Z23 Encounter for immunization
CPT/HCPCS: 90675; 96372; 99282; 90375

== ENCOUNTER 2025-03-15 12:26 | Outpatient (CLI) | payer SELFPAY ==
[2025-03-15 12:38] VITALS: BP 116/77; BP 116/87; PULSE 81; PULSE 84; RESP 16; O2SAT 100
--- OUTSIDE RECORDS SUMMARY | 2025-03-15 12:44 | XMS RPT_ITS | CCD ---
Author Organization [facility] Care Team Providers Care Judo Teacher Name Role Phone Fausto Gibbons Unavailable Johan Chavez MD Primary Care Provider Nathaniel CANCINO, Johan Christine Primary Care Provider Fausto Gibbons MD Unavailable [phone] Johan Chavez MD Primary Care Provider Dr. Johan Chavez MD Primary Care Provider Dr. Johan Chavez MD Referring Provider Mosony BEADER-CScot Attending Provider Mosony, Scot Attending Unavailable Johan Chavez Referring Unavailable Johan Chavez Primary Care Unavailable Bernardo Torres Attending Unavailable Johan Chavez Primary Care Unavailable JOHAN CHAVEZ Primary Care Unavailab le JOHAN CHAVEZ Primary Care Unavailab le Medications Current Medications Medication Drug Class(es) Dates Sig (Normalized) Sig (Original) Realitos (Nk) (1 source) Start: 11-19-2024 Realitos (Nk) A ctive November 19, 2024 12:00am [...] Reporton 0 11-19-2024 Urgent Care Visit Report [facility] [address], [address] [place] [address] OFFICE VISIT Date of Service: 11/19/24 MR#: [id number] Acct: [id number] Name: JACQUELINE SERRA Rep #: [id number] : 1965 Provider: DILLON Winn Age/Sex: 59/F Location: [facility] Status: Signed Intake Vital Signs 02/17/24 13:58 [...] her throat feels like its on fire. [facility] Medical History Contact dermatitis due to poison [...] pharyngitis, unspecified 11/19/24 1113 Date Scot Pa BEADER-C Cosigner Signature: Date (if applicable) CC: Normal [facility] Basic Metabolic Profile (BMP )on 02-17-2024 BUN/CRE 15.9 RATIO Normal 10-20 [facility] Comment on above: Performed By: #### L 100.0100, L500.2500 #### [facility] [address] [place], [address] CA,Total 9.4 mg/dL Normal 8.5-10.1 [facility] Comment on above: Performed By: #### L 100.0100, L500.2500 #### [facility] [address] [place], [address] Chloride [Moles/Vol] 109 mmol/L High 98-107 [facility] Comment on above: Performed By: #### L 100.0100, L500.2500 #### [facility] [address] [place], [address] CO2 [Moles/Vol] 21.0 mmol/L Normal 21.0-32.0 [facility] Comment on above: Performed By: #### L 100.0100, L500.2500 #### [facility] [address] [place], [address] Creatinine [Mass/Vol] 0.82 mg/dL Normal 0.55-1.[address] [facility] Comment on above: Result Comment: The validity of the calculated GFR GFRAA in patients over 70 years has not been determined. Clinical correlation is essential. Performed By: #### L 100.0100, L500.2500 #### [facility] [address] [place], [address] ECRCL 77.13 ml/min Normal [facility] Comment on above: Performed By: #### L 100.0100, L500.2500 #### [facility] [address] [place], [address] EST GFR - AA 92 mL/min Normal >60 [facility] Comment on above: Result Comment: Afri can Spanish GFR Calc Performed By: #### L 100.0100, L500.2500 #### [facility] [address] [place], [address] GAP 12 Normal 5-15 [facility] Comment on above: Performed By: #### L 100.0100, L500.2500 #### [facility] [address] [place], [address] GFR/1.73 sq M.predicted among non-blacks MDRD (S/P/Bld) [Vol rate/Area] 76 mL/min/{1.73_m2} Normal >60 [facility] Comment on above: Result Comment: Non- GFR Calc Performed By: #### L 100.0100, L500.2500 #### [facility] [address] [place], [address] Glucose [Mass/Vol] 137 mg/dL High 74-106 [facility] Comment on above: Result Comment: Fast ing Glucose result greater than or equal to 126 mg/dL suggests DIABETES MELLITUS per A.D.A. criteria. Performed By: #### L 100.0100, L500.2500 #### [facility] [address] [place], [address] Potassium [Moles/Vol] 3.7 mmol/L Normal 3.5-5.[address] [facility] Comment on above: Performed By: #### L 100.0100, L500.2500 #### [facility] [address] [place], [address] Sodium [Moles/Vol] 141 mmol/L Normal 136-145 [facility] Comment on above: Performed By: #### L 100.0100, L500.2500 #### [facility] [address] [place], [address] Urea nitrogen [Mass/Vol] 13 mg/dL Normal 7-18 [facility] Comment on above: Performed By: #### L 100.0100, L500.2500 #### [facility] [address] [place], [address] CBC W/Diff, Automatedon 12-0 -2023 Absolute Lymph 0.24 X10 3/uL Low 0.83-4.51 [facility] Comment on above: Performed By: #### L 100.0100, L500.2500 #### [facility] [address] [place], [address] Absolute Neut 6.7 X10 3/uL Normal 2.0-7.7 [facility] Comment on above: Performed By: #### L 100.0100, L500.2500 #### [facility] [address] [place], [address] Basophils/100 WBC (Bld) 0.3 % Normal 0-1 [facility] Comment on above: Performed By: #### L 100.0100, L500.2500 #### [facility] [address] [place], [address] Eosinophils/100 WBC (Bld) 0.3 % Normal 0-5 [facility] Comment on above: Performed By: #### L 100.0100, L500.2500 #### [facility] [address] [place], [address] Erythrocyte distribution width (RBC) [Ratio] 12.6 % Normal 11.6-14.6 [facility] Comment on above: Performed By: #### L 100.0100, L500.2500 #### [facility] [address] [place], [address] Hematocrit (Bld) [Volume fraction] 41.2 % Normal 37-47 [facility] Comment on above: Performed By: #### L 100.0100, L500.2500 #### [facility] [address] [place], [address] Hemoglobin (Bld) [Mass/Vol] 14.2 g/dL Normal 12.0-15.0 [facility] Comment on above: Performed By: #### L 100.0100, L500.2500 #### [facility] [address] [place], [address] IG% 0.300 Normal 0.0-0.9 [facility] Comment on above: Result Comment: IG% - Immature Granulocytes (promyelocytes, myelocytes and metamyelocytes) > 1% indicates that a LEFT SHIFT is Present. Performed By: #### L 100.0100, L500.2500 #### [facility] [address] [place], [address] Lymphocytes/100 WBC (Bld) 3.3 % Low 19-41 [facility] Comment on above: Performed By: #### L 100.0100, L500.2500 #### [facility] [address] [place], [address] MCH (RBC) [Entitic mass] 29.5 pg Normal 27.0-32.0 [facility] Comment on above: Performed By: #### L 100.0100, L500.2500 #### [facility] [address] [place], [address] MCHC (RBC) [Mass/Vol] 34.5 g/dL Normal 32-[address] [facility] Comment on above: Performed By: #### L 100.0100, L500.2500 #### [facility] [address] [place], [address] MCV (RBC) [Entitic vol] 85.5 fL Normal 81-99 [facility] Comment on above: Performed By: #### L 100.0100, L500.2500 #### [facility] [address] [place], [address] Monocytes/100 WBC (Bld) 2.9 % Normal 0-10 [facility] Comment on above: Performed By: #### L 100.0100, L500.2500 #### [facility] [address] [place], [address] Neutrophils/100 WBC (Bld) 92.9 % High 47-70 [facility] Comment on above: Performed By: #### L 100.0100, L500.2500 #### [facility] [address] [place], [address] Nucleated RBC (Bld) [#/Vol] 0 10*3/uL Normal 0-5 [facility] Comment on above: Performed By: #### L 100.0100, L500.2500 #### [facility] [address] [place], [address] Platelet mean volume (Bld) [Entitic vol] 8.8 fL Normal 6.2-12.0 [facility] Comment on above: Performed By: #### L 100.0100, L500.2500 #### [facility] [address] [place], [address] Platelets (Bld) [#/Vol] 357 10*3/uL Normal 150-450 [facility] Comment on above: Performed By: #### L 100.0100, L500.2500 #### [facility] [address] [place], [address] RBC (Bld) [#/Vol] 4.82 10*6/uL Normal 4.2-5.4 [facility] Comment on above: Performed By: #### L 100.0100, L500.2500 #### [facility] [address] [place], [address] RDW SD 39.1 fl Normal 35.1-43.9 [facility] Comment on above: Performed By: #### L 100.0100, L500.2500 #### [facility] [address] [place], [address] WBC (Bld) [#/Vol] 7.2 10*3/uL Normal 4.4-11.0 [facility] Comment on above: Performed By: #### L 100.0100, L500.2500 #### [facility] [address] [place], [address] Emergency Department Summary on 02-17-2024 Emergency Department Summary [facility] Medical Records Department [address] [place] [place] [address] Emergency Department Summary 02/17/24 MR#: [id number] Acct: [id number] Name: JACQUELINE SERRA Rep #: [id number] : 1965 58 From: Tere SCHILLING PCP: [...] cholecystectomy. She denies any chronic medical conditions. [facility] Medical History Contact dermatitis due to poison [...] including all aspects of the following. My schultz findings include: History is 58-year-old female with nausea, vomiting and diarrhea starting around 1 AM this morning. Her daughter and grandchild had similar symptoms in the last few days. She denies any (more content not included)... Normal [facility] Absolute lymphocyte countOrd ered By: Arnold Alejandra on 04-06-2023 Lymphocytes Auto (Unsp spec) [#/Vol] 0.25 10*3/uL 0.83-4.51 [facility] Automated lymphocyte count a s percentage of total leukocytesOrdered By: Arnold Alejandra on 04-06-2023 Lymphocytes/100 WBC Auto (Unsp spec) 3.5 % 19-41 [facility] Basophil percentageOrdered B y: Arnold Alejandra on 04-06-2023 Basophil percentage 25-50 SEEN /hpf 0-5 [facility] Basophils/100 WBC (Bld) 0.3 % 0-1 [facility] Chloride [Moles/Vol] 113 mmol/L 98-107 [facility] Eosinophils/100 WBC (Bld) 0.3 % 0-5 [facility] Glucose [Mass/Vol] 120 mg/dL 74-106 [facility] Comment on above: Fasting Glucose resu lt from 100 to 125 mg/dL suggests IMPAIRED HOMEOSTASIS per A.D.A. criteria. Hemoglobin (Bld) [Mass/Vol] 14.2 g/dL 12.0-15.0 [facility] Monocytes/100 WBC (Bld) 2.2 % 0-10 [facility] Neutrophils (Bld) [#/Vol] 6.7 10*3/uL 2.0-7.7 [facility] Neutrophils/100 WBC (Bld) 93.3 % 47-70 [facility] Potassium [Moles/Vol] 3.4 mmol/L 3.5-5.[address] [facility] Sodium [Moles/Vol] 141 mmol/L 136-145 [facility] WBC (Bld) [#/Vol] 7.1 10*3/uL 4.4-11.0 [facility] Bilirubin Test strip Ql (U)O rdered By: Arnold Alejandra on 04-06-2023 Bilirubin Ql (U) 1 mg/dL Negative [facility] Comment on above: COLOR OF URINE MAY A FFECT DIPSTICK RESULTS. Blood manual differential co mment interpretation (narrative result)Ordered By: Arnold Alejandra on 04-06-2023 Manual differential comment Shailesh (Bld) [Interp] SCANNED [facility] Comment on above: LYMPHOPENIA NOTED Determination of erythrocyte mean corpuscular volume (MCV)Ordered By: Arnold Alejandra on 04-06-2023 MCV (RBC) [Entitic vol] 85.8 fL 81-99 [facility] Erythrocyte distribution wid th ratioOrdered By: Arnold Alejandra on 04-06-2023 Erythrocyte distribution width (RBC) [Ratio] 12.3 % 11.6-14.6 [facility] Erythrocyte distribution wid th standard deviationOrdered By: Arnold Alejandra on 04-06-2023 Erythrocyte distribution width (RBC) [Entitic vol] 38.6 fL 35.1-43.9 [facility] Hematocrit Auto (Bld) [Volum e fraction]Ordered By: Arnold Alejandra on 04-06-2023 Hematocrit (Bld) [Volume fraction] 42.3 % 37-47 [facility] Immature granulocytes/100 WB C Auto (Bld)Ordered By: Arnold Alejandra on 04-06-2023 Immature granulocytes/100 WBC (Bld) 0.400 % 0.0-0.9 [facility] Comment on above: IG% - Immature Granu locytes (promyelocytes, myelocytes and metamyelocytes) > 1% indicates that a LEFT SHIFT is Present. Ketones Test strip Ql (U)Ord ered By: Arnold Alejandra on 04-06-2023 Ketones Ql (U) 150 mg/dl Negative [facility] Comment on above: CRITICAL VALUE *HCRI TICAL VALUE VERIFIED. CALLED TO [id number]/24 3632 Tfifanie Singer.RESULTS READ BACK BY SAME . Laboratory - Chemistry and C hemistry - challengeOrdered By: Arnold Alejandra on 04-06-2023 CO2 [Moles/Vol] 22.0 mmol/L 21.0-32.0 [facility] Urea nitrogen/Creatinine [Mass ratio] 12.8 mg/mg 10- [facility] Laboratory - Hematology and Cell countsOrdered By: Arnold Alejandra on 04-06-2023 MCH (RBC) [Entitic mass] 28.8 pg 27.0-32.0 [facility] MCHC (RBC) [Mass/Vol] 33.6 g/dL - [facility] Nucleated RBC/100 WBC (Bld) [Ratio] 0 % 0-5 [facility] Platelets (Bld) [#/Vol] 376 10*3/uL 150-450 [facility] Laboratory - Microbiology an d Antimicrobial susceptibilityOrdered By: Arnold Alejandra on 04-06-2023 SARS-CoV-2 (COVID-19) RNA NENA+probe Ql (Unsp spec) [facility] Mucus LM Ql (Urine sed)Order ed By: Arnold Alejandra on 04-06-2023 Mucus Ql (Urine sed) RARE /hpf [facility] Nitrite Test strip Ql (U)Ord ered By: Arnold Alejandra on 04-06-2023 Nitrite Ql (U) Negative Negative [facility] No Panel InformationOrdered By: Arnold Alejandra on 04-06-2023 Urine RBC 0-5 SEEN /hpf 0-5 [facility] Estimated Creatinine Clearance Calc 80.14 ml/min [facility] Estimated GFR (MDRD) Amer 87 mL/min >60 [facility] Comment on above: GFR Calc Estimated GFR (MDRD) Non-Af Amer 72 mL/min >60 [facility] Comment on above: Non- GFR Calc Platelet mean volume Denzel-Ec ker (Bld) [Entitic vol]Ordered By: Arnold Alejandra on 04-06-2023 Platelet mean volume (Bld) [Entitic vol] 9.1 fL 6.2-12.0 [facility] Protein Test strip Ql (U)Ord ered By: Arnold Alejandra on 04-06-2023 Protein Ql (U) 30 mg/dl Negative [facility] RBC Auto (Bld) [#/Vol]Ordere d By: Arnold Alejandra on 04-06-2023 RBC (Bld) [#/Vol] 4.93 10*6/uL 4.2-5.4 [facility] Serum or plasma calcium rogerio urement (mass/volume)Ordered By: Arnold Alejandra on 04-06-2023 Calcium [Mass/Vol] 9.5 mg/dL 8.5-10.1 [facility] r [facility] Serum or plasma choriogonado tropin detectionOrdered By: Arnold Alejandra on 04-06-2023 HCG ( test) Ql Negative [facility] Serum or plasma creatinine m easurement (mass/volume)Ordered By: Arnold Alejandra on 04-06-2023 Creatinine [Mass/Vol] 0.86 mg/dL 0.55-1.[address] [facility] Comment on above: The validity of the calculated GFR & GFRAA in patients over 70 years has not been determined. Clinical correlation is essential. Serum or plasma urea nitroge n measurement (mass/volume)Ordered By: Arnold Alejandra on 04-06-2023 Urea nitrogen [Mass/Vol] 11 mg/dL 7-18 [facility] Squamous epithelial cells de tection in urine sediment by light microscopyOrdered By: Arnold Alejandra on 04-06-2023 Epithelial cells.squamous LM Ql (Urine sed) 0-5 SEEN /hpf 5-10 [facility] Thin prep Papanicolaou smear with manual screeningOrdered By: Arnold Alejandra on 04-06-2023 Thin prep Papanicolaou smear with manual screening 6 5-15 [facility] Urine blood detectionOrdered By: Arnold Alejandra on 04-06-2023 RBC Ql (U) Negative Negative [facility] Urine clarityOrdered By: Yeyo Alejandra on 04-06-2023 Clarity (U) Clear Clear [facility] Urine color determinationOrd ered By: Arnold Alejandra on 04-06-2023 Color (U) Yellow Yellow [facility] Urine glucose detectionOrder ed By: Arnold Alejandra on 04-06-2023 Glucose Ql (U) Normal mg/dl Normal [facility] Urine leukocyte esterase det ection by dipstickOrdered By: Arnold Alejandra on 04-06-2023 Leukocyte esterase Test strip Ql (U) 500 /ul Negative [facility] Urine pHOrdered By: Arnold rankin on 04-06-2023 pH (U) 8.0 [pH] 5.0 - 8.0 [facility] Urine sediment bacteria coun t by microscopy (number/high power field)Ordered By: Arnold Alejandra on 04-06-2023 Bacteria LM.HPF (Urine sed) [#/Area] 0 /[HPF] None Seen [facility] Urine specific gravity measu rementOrdered By: Arnold Alejandra on 04-06-2023 Specific gravity (U) [Rel density] 1.015 1.002-1.030 [facility] Urine urobilinogen measureme ntOrdered By: Arnold Alejandra on 04-06-2023 Urobilinogen Ql (U) Normal mg/dl Normal [facility] Absolute lymphocyte counton 03-09-2022 Lymphocytes Auto (Unsp spec) [#/Vol] 0.31 10*3/uL 0.83-4.51 [facility] Work Phone: Basophil percentageon 2021 Basophils/100 WBC (Bld) 0.3 % 0-1 [facility] Work Phone: Chloride [Moles/Vol] 108 mmol/L 98-107 [facility] Work Phone: Eosinophils/100 WBC (Bld) 0.0 % 0-5 [facility] Work Phone: [phone] Glucose [Mass/Vol] 129 mg/dL 74-106 [facility] Work Phone: Comment on above: Fasting Glucose resu lt greater than or equal to 126 mg/dL suggests DIABETES MELLITUS per A.D.A. criteria. Neutrophils (Bld) [#/Vol] 2.7 10*3/uL 2.0-7.7 [facility] Work Phone: Neutrophils/100 WBC (Bld) 82.3 % 47-70 [facility] Work Phone: Potassium [Moles/Vol] 3.7 mmol/L 3.5-5.1 [facility] Work Phone: Sodium [Moles/Vol] 139 mmol/L 136-145 [facility] Work Phone: WBC (Bld) [#/Vol] 3.3 10*3/uL 4.4-11.0 [facility] Work Phone: Blood erythrocytes count (nu mber/volume)on 03-09-2022 RBC (Bld) [#/Vol] 4.47 10*6/uL 4.2-5.4 [facility] Work Phone: Blood hemoglobin measurement (mass/volume)on 03-09-2022 Hemoglobin (Bld) [Mass/Vol] 13.0 g/dL 12.0-15.0 [facility] Work Phone: Blood lymphocytes/100 leukoc yteson 03-09-2022 Lymphocytes/100 WBC (Bld) 9.3 % 19-41 [facility] Work Phone: Blood monocytes/100 leukocyt eson 03-09-2022 Monocytes/100 WBC (Bld) 8.1 % 0-10 [facility] Work Phone: Blood platelet mean volumeon 03-09-2022 Platelet mean volume (Bld) [Entitic vol] 8.8 fL 6.2-12.0 [facility] Work Phone: Determination of erythrocyte mean corpuscular volume (MCV)on 03-09-2022 MCV (RBC) [Entitic vol] 88.8 fL 81-99 [facility] Work Phone: Hematocrit Auto (Bld) [Volum e fraction]on 03-09-2022 Hematocrit (Bld) [Volume fraction] 39.7 % 37-47 [facility] Work Phone: Laboratory - Chemistry and C hemistry - challengeon 12-22-2022 CO2 [Moles/Vol] 27.0 mmol/L 21.0-32.0 [facility] Work Phone: Urea nitrogen/Creatinine [Mass ratio] 9.1 mg/mg 10-20 [facility] Work Phone: Laboratory - Hematology and Cell countson 03-09-2022 Erythrocyte distribution width (RBC) [Entitic vol] 40.5 fL 35.1-43.9 [facility] Work Phone: Erythrocyte distribution width (RBC) [Ratio] 12.4 % 11.6-14.6 [facility] Work Phone: Immature granulocytes/100 WBC (Bld) 0.000 % 0.0-0.9 [facility] Work Phone: Comment on above: IG% - Immature Granu locytes (promyelocytes, myelocytes and metamyelocytes) > 1% indicates that a LEFT SHIFT is Present. MCH (RBC) [Entitic mass] 29.1 pg 27.0-32.0 [facility] Work Phone: Nucleated RBC/100 WBC (Bld) [Ratio] 0 % 0-5 [facility] Work Phone: MCHC Auto (RBC) [Mass/Vol]on 03-09-2022 MCHC (RBC) [Mass/Vol] 32.7 g/dL 32-[address] [facility] Work Phone: No Panel Informationon 03-09 Estimated Creatinine Clearance Calc 75.46 ml/min [facility] Work Phone: Estimated GFR (MDRD) Amer 99 mL/min >60 [facility] Work Phone: Comment on above: GFR Calc Estimated GFR (MDRD) Non-Af Amer 82 mL/min >60 [facility] Work Phone: Comment on above: Non- GFR Calc Platelets bldon 03-09-2022 Platelets (Bld) [#/Vol] 253 10*3/uL 150-450 [facility] Work Phone: Serum or plasma calcium rogerio urement (mass/volume)on 03-09-2022 Calcium [Mass/Vol] 8.9 mg/dL 8.5-10.1 [facility] Work Phone: Serum or plasma creatinine m easurement (mass/volume)on 03-09-2022 Creatinine [Mass/Vol] 0.77 mg/dL 0.55-1.02 Cody gomez [facility] Work Phone: Comment on above: The validity of the calculated GFR & GFRAA in patients over 70 years has not been determined. Clinical correlation is essential. Serum or plasma urea nitroge n measurement (mass/volume)on 03-09-2022 Urea nitrogen [Mass/Vol] 7 mg/dL 7-18 [facility] Work Phone: Thin prep Papanicolaou smear with manual screeningon 03-09-2022 Thin prep Papanicolaou smear with manual screening 4 5-15 [facility] Work Phone: PAP SMEARon 06-23-2020 [...] date. Signed Verified/Reviewed by BRIANA KEY 07/05/20 [facility] NAME: JACQUELINE SERRA Pathology and Laboratory Medicine UNIT#: [id number] LOC: [facility] Nutritional Yeast Supervisor: Liliana Gonzales M.D. [id number] ROOM/BED: [place] : 63 AGE/SEX: 55/F ORD.Johan Foster MD END OF REPORT Normal [facility] [place] XR Foot - right AP and Later al and obliqueon 04-27-2020 IMPRESSION: 1. Large anterior posterior heel spurs 2. Calcific or ossific density projecting along the undersurface of the cuboid on the lateral view could be due to remote trauma. Sonographer: JENN Transcribe Date/Time: Apr 27 2020 11:04A Dictated by : MARKO ROMO DO This examination was interpreted and the report reviewed and electronically signed by: MARKO ROMO DO on Apr 27 2020 11:07AM [facility] DIVISION OF RADIOLOGY * * *Final Report* [...] dislocations are seen. DIVISION OF RADIOLOGY Provider, [facility] [place] - 04/27/2020 * * *Final Report* * [...] view could be due to remote trauma. Sonographer: JENN Transcribe Date/Time: Apr 27 2020 11:04A Dictated by : MARKO ROMO DO This examination was interpreted and the report reviewed and electronically signed by: MARKO ROMO DO on Apr 27 2020 11:07AM EST [facility] Radiology Study observation (narrative) Ricky longoria [facility] XR Foot - right AP and Later al and obliqueOrdered By: [facility]cf Provider on 04-27-2020 [facility] No Panel Information Influenza Types A,B Direct FA (NURIS) Influenzae A [facility] Work Phone: Vital Signs Date Time Vital Sign Value Performing Clinician Facility 11-19-2024 11:08-0400 Body temperature 98.2 [degF] Dr. Johan Chavez MD Work Phone: [facility] 11-19-2024 11:08-0400 Diastolic blood pressure 60 mm[Hg] Dr. Johan Chavez MD Work Phone: [facility] 11-19-2024 11:08-0400 Heart rate 68 /min Dr. Johan Chavez MD Work Phone: [facility] 11-19-2024 11:08-0400 Respiratory rate 16 /min Dr. Johan Chavez MD Work Phone: [facility] 11-19-2024 11:08-0400 SaO2% (BldA) [Mass fraction] 99 % Dr. Johan Chavez MD Work Phone: [facility] 11-19-2024 11:08-0400 Systolic blood pressure 120 mm[Hg] Dr. Johan Chavez MD Work Phone: [facility] 09-05-2023 15:09-0400 Body height 168.9 cm Johan Chavez MD Work Phone: [facility] 09-05-2023 15:09-0400 Body mass index (BMI) [Ratio] 27.66 kg/m2 Johan Chavez MD Work Phone: [facility] 09-05-2023 15:09-0400 Body temperature 97.59 [degF] Johan Chavez MD Work Phone: [facility] 09-05-2023 15:09-0400 Body weight 78.93 kg Johan Chavez MD Work Phone: [facility] 09-05-2023 15:09-0400 Diastolic blood pressure 74 mm[Hg] Johan Chavez MD Work Phone: [facility] 09-05-2023 15:09-0400 Heart rate 68 /min Johan Chavez MD Work Phone: [facility] 09-05-2023 15:09-0400 Respiratory rate 18 /min Johan Chavez MD Work Phone: [facility] 09-05-2023 15:09-0400 SaO2% (BldA) [Mass fraction] 97 % Johan Chavez MD Work Phone: [facility] 09-05-2023 15:09-0400 Systolic blood pressure 122 mm[Hg] Johan Chavez MD Work Phone: [facility] 04-06-2023 22:31-0500 Diastolic blood pressure 74 mm[Hg] [facility] 04-06-2023 22:31-0500 Heart rate 74 /min [facility] 04-06-2023 22:31-0500 Respiratory rate 16 /min [facility] 04-06-2023 22:31-0500 SaO2% (BldA) [Mass fraction] 97 % [facility] 04-06-2023 22:31-0500 Systolic blood pressure 115 mm[Hg] [facility] 04-06-2023 20:10-0500 Body mass index (BMI) [Ratio] 31.6 kg/m2 [facility] 04-06-2023 20:10-0500 Body weight 89.04 kg [facility] 04-06-2023 20:01-0500 Body temperature 97.4 [degF] [facility] 04-06-2023 19:59-0500 Body height 167.64 cm [facility] 09-06-2022 14:19-0400 Body height 168.9 cm Johan Chavez MD Work Phone: [facility] 09-06-2022 14:190400 Body temperature 96.91 [degF] Johan Chavez MD Work Phone: [facility] 09-06-2022 14:190400 Body weight 87 kg Johan Chavez MD Work Phone: [facility] 09-06-2022 14:19-0400 Diastolic blood pressure 80 mm[Hg] Johan Chavez MD Work Phone: [facility] 09-06-2022 14:19-0400 Heart rate 76 /min Johan Chavez MD Work Phone: [facility] 09-06-2022 14:19-0400 Respiratory rate 14 /min Jhoan Chavez MD Work Phone: [facility] 09-06-2022 14:19-0400 SaO2% (BldA) [Mass fraction] 98 % Johan Chavez MD Work Phone: [facility] 09-06-2022 14:19-0400 Systolic blood pressure 110 mm[Hg] Johan Chavez MD Work Phone: [facility] 03-09-2022 12:47-0500 Body temperature 98.3 [degF] [facility] Work Phone: 03-09-2022 12:47-0500 Diastolic blood pressure 75 mm[Hg] [facility] Work Phone: 03-09-2022 12:47-0500 Heart rate 77 /min [facility] Work Phone: 03-09-2022 12:47-0500 Respiratory rate 16 /min [facility] Work Phone: 03-09-2022 12:47-0500 SaO2% (BldA) [Mass fraction] 96 % [facility] Work Phone: 03-09-2022 12:47-0500 Systolic blood pressure 119 mm[Hg] [facility] Work Phone: 03-09-2022 08:30-0500 Body height 167.64 cm [facility] Work Phone: 03-09-2022 08:30-0500 Body mass index (BMI) [Ratio] 32.4 kg/m2 [facility] Work Phone: 03-09-2022 08:30-0500 Body weight 91.13 kg [facility] Work Phone: Encounters Encounter Date Encounter Type Care Provider Facility Start: 12-16-2024 End: 12-16-2024 ambulatory JOHAN CHAVEZ Facility:[facility] Start: 11-19-2024 End: 11-19-2024 Patient encounter procedure Scot Kipsony BEADER-C [facility] Work Phone: Start: 11-19-2024 End: 11-19-[address] Johan Chavez MD Work Phone: [facility] Start: 02-17-2024 End: 02-18-2024 Patient encounter procedure [facility] Provider [facility] Department Start: 02-17-2024 End: 02-17-2024 Emergency department patient visit Bernardo Torres Facility:[facility] Start: 01-02-2024 End: 01-02-2024 ambulatory JOHAN CHAVEZ Facility:[facility] Start: 10-04-2023 Documentation procedure Mammog melquiades Coordinator [facility] Department Start: 10-04-2023 Letter encounter Mammography Coordinator [facility] Department Start: 10-03-2023 End: 10-03-2023 Subsequent hospital visit by physician Screen Mammo [facility] Comment on above: Encounter for screen ing mammogram for breast cancer [Z12.31] Start: 09-05-2023 End: 09-05-2023 Patient encounter status Johan Chavez MD Work Phone: [facility] Start: 09-05-2023 End: 09-05-2023 Periodic preventive med est patient 40-64yrs Johan Chavez MD Work Phone: [facility] Comment on above: Wellness examination (Primary Dx); Encounter for screening mammogram for breast cancer; Encounter for immunization; Lipid screening; Screening for deficiency anemia Start: 04-06-2023 End: 04-06-2023 [facility] Start: 09-26-2022 Telephone encounter Johan Chavez MD Work Phone: [facility] Comment on above: Orders (Additional m ammogram) Orders Start: 09-25-2022 ambulatory Johan Adams MD Work Phone: [facility] Comment on above: Mammogram Start: 09-25-2022 Telephone encounter Johan Chavez MD Work Phone: [facility] Comment on above: Results (Mammogram - Additional imaging needed) Mammogram Result Richi l Back Results Start: 09-22-2022 Documentation procedure Mammog melquiades Coordinator [facility] Start: 09-22-2022 Letter encounter Mammography Coordinator [facility] Department Start: 09-06-2022 End: 09-06-2022 Patient encounter status Johan Chavez MD Work Phone: [facility] Start: 09-06-2022 End: 09-06-2022 Periodic preventive med est patient 40-64yrs Johan Chavez MD Work Phone: [facility] Comment on above: Wellness examination (Primary Dx); Lipid screening; Screening for deficiency anemia; Encounter for screening mammogram for malignant neoplasm of breast; Screening for colon cancer Start: 03-09-2022 End: 03-09-2022 Emergency department patient visit [facility] Start: 04-27-2020 End: 04-27-2020 Subsequent hospital visit by physician [facility] Work Phone: Radiology Comment on above: Pain of right heel [ M79.671] Procedures Date Procedure Procedure Detail Performing Clinician Start: 09-05-2023 Adult depression scr eening assessment Xr Lejunior Work Phone: Start: 04-06-2023 SARS-CoV-2, Influenz a & RSV (PCR) Start: 09-26-2022 Lipid 1996 panel - S kaela or Plasma Johan Chavez MD Work Phone: Start: 09-22-2022 Mammography Johan corbett MD Work Phone: Start: 04-27-2020 Radex foot complete minimum 3 views Chad Singer IMPORT/EXPORT ADMINISTRATOR.CERTIFIED ADAPTIVE PHYSICAL EDUCATOR Work Phone: Influenza Types A,B Direct FA ([facility]) Plan of Treatment Date Care Activity Detail Author Start: 09-04-2033 Urine microalbumin profile DTaP,Tdap,Td Vaccine (2 - Td or Tdap) [facility] Start: 09-27-2027 Lipid panel Lipid Screening [facility] Start: 09-27-2027 LIPID SCREEN LIPID SCREEN [facility] Start: 09-26-2025 DIABETES SCREEN DIABETES SCREEN [facility] Start: 09-26-2025 Diabetes Screening Diabetes Screenin g [facility] Start: 09-20-2025 COLOGUARD (FIT-DNA) COLOGUARD (FIT-D NA) [facility] Start: 09-20-2025 COLORECTAL CANCER SCREENING COLORECTAL CANCER SCREENING [facility] Start: 09-20-2025 Screening for malign ant neoplasm of colon [facility] Start: 06-23-2025 PAP TESTING PAP TESTING [facility] Start: 10-02-2024 Screening for malign ant neoplasm of breast Mammogram Screening [facility] Start: 09-04-2024 Anxiety Screening Anxiety Screening [facility] Start: 09-04-2024 Depression Screening Depression Scre ening [facility] Start: 11-18-2023 Covid-19 Vaccine () Covid-19 Vaccine () [facility] Start: 11-18-2023 Influenza vaccination C [facility] Start: 09-23-2023 Mammography MAMMOGRAM [facility] Start: 09-23-2023 Screening for malign ant neoplasm of breast Mammogram Screening [facility] Start: 09-05-2023 End: 12-05-2023 CBC W Auto Differential panel - Blood COMPLETE BLOOD COUNT AND DIFFERENTIAL Lab Routine Screening for deficiency anemia Expected: 09/05/2023, Expires: 12/05/2023 [facility] Comment on above: Expected: 09/05/2023 , Expires: 12/05/2023 Start: 09-05-2023 End: 12-05-2023 Comprehensive metabolic 2000 panel - Serum or Plasma COMPREHENSIVE METABOLIC PANEL Lab Routine Wellness examination Expected: 09/05/2023, Expires: 12/05/2023 [facility] Comment on above: Expected: 09/05/2023 , Expires: 12/05/2023 Start: 09-05-2023 End: 12-05-2023 Lipid 1996 panel - Serum or Plasma LIPID PANEL BASIC Lab Routine Lipid screening Expected: 09/05/2023, Expires: 12/05/2023 [facility] Comment on above: Expected: 09/05/2023 , Expires: 12/05/2023 Start: 06-24-2023 Screening for malign ant neoplasm of cervix Cervical Cancer Screening [facility] Start: 11-17-2022 Covid-19 Vaccine ( season) Covid-19 Vaccine () [facility] Start: 11-17-2022 Influenza vaccination [facility] Start: 09-06-2022 End: 11-06-2022 CBC W Auto Differential panel - Blood CBC + DIFF Lab Routine Screening for deficiency anemia Expected: 09/06/2022, Expires: 11/06/2022 [facility] Work Phone: Comment on above: Expected: 09/06/2022 , Expires: 11/06/2022 Start: 09-06-2022 End: 11-06-2022 Comprehensive metabolic 2000 panel - Serum or Plasma COMP METABOLIC PANEL Lab Routine Wellness examination Expected: 09/06/2022, Expires: 11/06/2022 [facility] Work Phone: Comment on above: Expected: 09/06/2022 , Expires: 11/06/2022 Start: 09-06-2022 End: 11-06-2022 Lipid 1996 panel - Serum or Plasma LIPID PANEL BASIC Lab Routine Lipid screening Expected: 09/06/2022, Expires: 11/06/2022 [facility] Work Phone: Comment on above: Expected: 09/06/2022 , Expires: 11/06/2022 Start: 03-09-2022 [facility] Work Phone: Start: 04-18-2021 COVID-19 VACCINE (4 - Booster for Pfizer series) COVID-19 VACCINE (4 - Booster for Pfizer series) [facility] Start: 04-18-2021 COVID-19 VACCINE (4 - Pfizer series) COVID-19 VACCINE (4 - Pfizer series) [facility] Start: 2014 SHINGRIX VACCINE (1 of 2) SHINGRIX VACCINE (1 of 2) [facility] Start: 2009 COLOGUARD (FIT-DNA) COLOGUARD (FIT-D NA) [facility] Start: 2009 Colonoscopy COLONOSCOPY [facility] Start: 2009 COLORECTAL CANCER SCREENING COLORECTAL CANCER SCREENING [facility] Start: [address] COLONOGRAPHY [facility] Start: 2009 DIABETES SCREEN DIABETES SCREEN [facility] Start: 2009 FECAL OCCULT BLOOD FECAL OCCULT BLOO D [facility] Start: 2009 LIPID SCREEN LIPID SCREEN [facility] Start: 2009 Screening for malign ant neoplasm of colon [facility] Start: 2009 SIGMOIDOSCOPY SIGMOIDOSCOPY [facility] Start: 2004 Mammography MAMMOGRAM [facility] Start: 1994 HPV TESTING HPV TESTING [facility] Start: 1983 Urine microalbumin profile DTAP,TDAP,TD (1 - Tdap) [facility] Start: 1982 HIV SCREENING HIV SCREENING [facility] Start: 1982 HIV screening HIV Screening [facility] COLOGUARD COLOGUARD Lab Ro utine Screening for colon cancer Ordered: 09/06/2022 [facility] Work Phone: Comment on above: Ordered: 09/06/2022 End: 10-04-2024 DBT Breast - bilateral screening SURJIT SCREENING W MIRTA Radiology Routine Encounter for screening mammogram for breast cancer 1 Occurrences starting 09/05/2023 until 10/04/2024 [facility] Work Phone: Comment on above: 1 Occurrences starti ng 09/05/2023 until 10/04/2024 DBT Breast - bilater al screening SUJRIT SCREENING W [facility] Radiology Routine Encounter for screening mammogram for breast cancer 10/03/2023 1:09 PM EDT [facility] Work Phone: End: 10-26-2023 SURJIT DIAGNOSTIC RIGHT SURJIT DIAGNOSTIC RIGHT Radiology Routine Abnormal mammogram 1 Occurrences starting 09/26/2022 until 10/26/2023 [facility] Work Phone: Comment on above: 1 Occurrences starti ng 09/26/2022 until 10/26/2023 End: 10-06-2023 SURJIT SCREENING SURJIT SCREENING Radiology Routine Encounter for screening mammogram for malignant neoplasm of breast 1 Occurrences starting 09/06/2022 until 10/06/2023 [facility] Work Phone: Comment on above: 1 Occurrences starti ng 09/06/2022 until 10/06/2023 Patient Education [facility] Work Phone: Patient referral [facility] Work Phone: End: 10-26-2023 US BREAST LTD RIGHT US BREAST LTD RIGHT Radiology Routine Abnormal mammogram 1 Occurrences starting 09/26/2022 until 10/26/2023 [facility] Work Phone: Comment on above: 1 Occurrences starti ng 09/26/2022 until 10/26/2023 [facility] Immunizations Immunization Date Immunization Notes Care Provider Fa [facility] 09-05-2023 tetanus toxoid, redu hiral diphtheria toxoid, and acellular pertussis vaccine, adsorbed Johan Chavez MD Work Phone: [facility] 02-21-2021 Covid (Pfizer) [facility] 06-24-2020 Covid (Pfizer) [facility] 06-03-2020 Covid (Pfizer) [facility] 02-05-2020 Influenza, injectabl e, Madin [place] Canine Kidney, preservative free, quadrivalent Johan Chavez MD Work Phone: [facility] 02-05-2020 influenza virus vaccine, unspecified formulation Johan Chavez MD Work Phone: [facility] 11-04-2004 hepatitis A and hepatitis B vaccine Johan Chavez MD Work Phone: [facility] 05-17-2004 hepatitis A and hepatitis B vaccine Johan Chavez MD Work Phone: [facility] 04-01-2004 hepatitis A and hepatitis B vaccine Johan Chavez MD Work Phone: [facility] Payers Date Payer Category Payer Self-pay [id number] 2024 Unknown [id number] 2022 Unknown ANGLICAN SELF P AY ANGLICAN SELF PAY GENERIC [id number] 2022-Present Other [id number] 2011 Unknown [id number] Unknown [id number] Unknown [id number] Social History Date Type Detail Facility Start: 03-09-2022 End: 04-06-2023 Tobacco smoking status NHIS Unknown if ever smoked [facility] Start: 07-22-2020 None [facility] Start: 07-22-2020 Homeless [facility] Start: 07-22-2020 Non-smoker [facility] Start: 1965 Sex Assigned At Female [facility] Start: 09-06-2022 End: 02-17-2024 Tobacco smoking status NHIS Never smoked tobacco [facility] History of tobacco use Passive smoker [facility] Start: 04-27-2020 End: 09-06-2022 Tobacco use and exposure Smokeless tobacco non-user [facility] Start: 09-06-2022 End: 09-05-2023 Alcohol intake Ex-drinker (finding) [facility] Start: 09-06-2022 History SDOH Alcohol Frequency 1 [facility] Start: 09-06-2022 History SDOH Alcohol Std Drinks 0 [facility] Start: 09-06-2022 History SDOH Social Connections Phone 5 [facility] Start: 09-06-2022 History SDOH Social Connections Get Together 2 [facility] Start: 09-06-2022 History SDOH Social Connections Hinduism 3 [facility] Start: 09-06-2022 History SDOH Physical Activity MPS 12 [facility] Start: 09-06-2022 Education 21 [facility] Start: 1965 Sex Assigned At Not on file [facility] Start: 09-06-2022 End: 09-05-2023 History of Social function [facility] Start: 09-06-2022 End: 09-05-2023 Social connection and isolation panel [facility] Do you belong to any clubs or organizations such as adventist groups, Sun[employer], fraternal or athletic groups, or school groups? Yes [facility] Are you now , , , , never or living with a partner? [facility] How often to you hav e a drink containing alcohol? Never [facility] How many standard dr inks containing alcohol do you have on a typical day? Patient does not drink [facility] Do you feel stress - tense, restless, nervous, or anxious, or unable to sleep at night because your mind is troubled all the time - these days [OSQ] Not at all [facility] (I/We) worried yamila er (my/our) food would run out before (I/we) got money to buy more. Never true [facility] In the past 12 month s, was there a time when you were not able to pay the mortgage or rent on time? No [facility] Start: 09-06-2022 Gender identity Identifies as female gender (finding) [facility] Start: 09-06-2022 Sexual orientation Heterosexual (finding) [facility] Start: 04-27-2020 Alcoholic beverage intake Not Asked [facility] Start: 03-28-2020 End: 04-27-2020 Exposure to SARS-CoV-2 (event) Not sure [facility] Clinical Notes 04-27-2020 to 11-19-2024 Note Date & Type Note Facility 11-19-2024 Progress note [facility] 11-19-2024 Progress note Note Date/Time November 19, 2024 11:13am [facility] [address], [address] [place] [address] OFFICE VISIT Date of Service: 11/19/24 MR#: [id number] Acct: [id number] Name: JACQUELINE SERRA Rep #: [id number] : 1965 Provider: DILLON Winn Age/Sex: 59/F Location: [email or web address] Status: Signed Intake Vital Signs 02/17/24 13:58 [...] her throat feels like its on fire. [facility] Medical History Contact dermatitis due to poison [...] Cosigner Signature: Date (if applicable) CC: ~ [employer] Work Phone: [phone]) 833-612408-26-2025 NotePatient Outreach (FAMMAS) JACQUELINE SERRA ([id number]) 1965 F Date Time Provider Department 11/11/24 JOHAN CHAVEZ During your visit today, we recorded the following information about you: Allergies As of Date: 11/11/2024 (No Known Allergies) Date Reviewed: 09/05/2023 Reviewed by: Deidra Rush LPN - Fully Assessed Visit Diagnosis:Encounter for screening mammogram for breast cancer [Z12.31] Order(s):SURJIT SCREENING W MIRTA [[id number]] Order #: [id number] FUTURE Problem List As Of Date 11/11/2024 Noted Resolved Neutropenia [D70.9] 07/22/2009 Anemia [D64.9] 07/22/2009 Chronic cholecystitis with calculus [K80.10] 10/14/2012 Allergic conjunctivitis [H10.10] 03/10/2023 Diagnosed: 03/10/2023 Migraine headaches [G43.909] 01/09/2017 Diagnosed: 03/10/2023 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 Serra, We are pleased to [...] report will be kept on file at [facility] as part of your permanent medical record and are available for your continuing care. Thank you for allowing us to help in meeting your health care needs. Sincerely, Dr. Varner Interpreting Radiologist [facility] (Normal over 40) [facility]07-18-2024 Miscellaneous Notes* Letter - Coordinator, Mammography - 10/04/2023 12:06 PM EDT October 04, 2023 PID: [id number] Jacqueline NiviaCaro Serra [id number] [id number] Dear Ms. Serra, We are pleased to [...] report will be kept on file at [facility] as part of your permanent medical record and are available for your continuing care. Thank you for allowing us to help in meeting your health care needs. Sincerely, Dr. Varner Interpreting Radiologist [facility] (Normal over 40) documented in this encounterCleveland [id number] History of Present illness Narrative* Debbie Francois [...] PATIENT PRESENTS WITH AN IMPLANTABLE OR ATTACHED DIRECTOR OF CREATIVE SERVICES: No RADIOLOGY DEPARTMENT: Mammography PERIPHERAL IV DATA: Not applicable SIGNED BY: Venu Hernandez October 03, 2023 11:35 AM documented in this encounterPremier [facility] Center06-19-2024 History of Present illness Narrative* Johan Chavez [...] 05, 2023 3:34 PM documented in this encounterPremier Health [facility] Center01-19-2024 Discharge summary Author Arnold Alejandra [facility] April 06, 2023 10:24pm Note Date/Time April 06, 2023 8 :33pm [facility] Medical Records Department [address] [place] [address] Emergency Department Summary 04/06/23 MR#: [id number] Acct: [id number] Name: JACQUELINE SERRA Rep #:[id number] : 1965 57 From: Arnold Alejandra DO [...] tested for anything and recovered without testing. [facility] Medical History Allergic conjunctivitis Contact dermatitis due [...] 93.3 H Lymph % (Auto) 3.5 L Hickman % (Auto) 2.2 Eos % (Auto) 0.3 [...] Clarity Clear Urine pH 8.0 Ur Specific Lamoni 1.015 Urine Protein 30 H Urine Glucose [...] Primary Care Provider: Johan Chavez Referrals: Johan Cahvez MD [Primary Care Provider] - Disposition Disposition: Home, Self Care What to do if you have Problems For any increased pain, shortness of breath, bleeding, nausea or vomiting, chestpain, or any unexpected problems, contact your Primary Care Provider. Call [facility] ([phone]) or report to the closest Emergency Room. Call 911 if necessary. 04/06/232223 <Electronically signed by Arnold Alejandra DO> Cosigner Signature (if applicable): CC: Dr. Johan Chavez MD ~ Signed [facility] Work Phone: [phone]) 752-890507-11-2023 Miscellaneous Notes* Telephone Encounter - Johan Chavez MD - 09/26/2022 1:10 PM EDT ordered * Telephone Encounter - Deidra Rush LPN - 09/26/2022 9:31 AM EDT Mammogram from 09-22-2022 needs additional imaging. Patient had Mammogram completed at [facility]. They stated they will not do testing until order received by you. Deidra Rush LPN September 26, 2022 9:33 AM documented in this encounterPremier Health At[facility] Center07-11-2023 Miscellaneous Notes* Telephone Encounter - Johan Chavez MD - 09/26/2022 1:09 PM EDT signed * Telephone Encounter - Deidra Rush LPN - 09/26/2022 11:01 AM EDT Please sign attached orders for patient to receive additional imaging from Mammogram results Patient requesting orders to be sent to [facility] This nurse informed patient that orders will be sent once signed by Dr. Chavez Patient verbalized understanding, thanked nurse for information. Deidra Rush LPN September 26, 2022 11:45 AM documented in this encounterPremier Health Atrium Medical Center07-11-2023 Miscellaneous Notes* Telephone Encounter - Jacqueline Cole LPN - 09/26/2022 11:34 AM EDT Katiana from [facility] called asking for additional orders due to abnormal mammogram. The [facility] does not have standing orders. Orders needed as follows: Right diagnostic mammogram Right breast [employer] Katiana call back # [phone] Katiana said she can get the order from the computer chart,however,order should be faxed as well to insure they have what they need Thank you, Jacqueline Cole LPN September 26, 2022 11:33 AM documented in this encounterPremier Health Atrium Medical Center07-10-2023 Miscellaneous Notes* Telephone Encounter - Deidra Rush [...] EDT ----- Cologuard negative documented in this encounterPremier Health Atrium Medical Center07-10-2023 Miscellaneous Notes* Telephone Encounter - Jesus Turner - 09/25/2022 3:42 PM EDT Patient called to schedule callback mammo documented in this encounterPremier Health Atrium Medical Center07-10-2023 Miscellaneous Notes* Telephone Encounter - Jacqueline Cole [...] has additional imaging scheduled documented in this encounterPremier Health Atrium Medical Center07-07-2023 Miscellaneous Notes* Letter - Coordinator, Mammography - 09/22/2022 10:50 AM EDT September 25, 2022 PID: [id number] Jacqueline Serra [address] [address] Dear Ms. Serra, Your recent breast imaging exam on 09/22/2022 showed a possible finding that requires additional imaging studies for a complete evaluation. Most such findings are probably benign (not cancer). If you have a healthcare provider who ordered/prescribed your screening mammogram: Please call [phone] or [phone] to schedule an appointment for your additional [...] and reports are kept on file at [facility] as part of your permanent medical record, and are available for your continuing care. Thank you for allowing us to help in meeting your health care needs. Sincerely, Dr. Varner Interpreting Radiologist [facility] (Additional imaging) documented in this encounterPremier Health Atrium Medical Center06-21-2023 History of Present illness Narrative* Johan Chavez MD - 09/06/2022 3:05 PM EDT This note was created using [employer]. Subjective Jacqueline Serra is a 57 year [...] 06, 2022 2:12 PM documented in this encounterPremier Health Atrium Medical Center02-09-2021 History of Present illness Narrative* Odessa Ackerman [...] 27, 2020 10:51 AM [facility] noteNo assessment information availableWMercy Health Work Phone: Evaluation note* Diagnosis Wellness examination- Primary Lipid screening Screening for lipoid disorders Screening for deficiency anemia Screening for other and unspecified deficiency anemia Encounter for screening mammogram for malignant neoplasm of breast Other screening mammogram Screening for colon cancer Special screening for malignant neoplasms, colon documented in this encounter [facility] note* Diagnosis Abnormal mammogram- Primary Abnormal mammogram, unspecified documented in this encounter [facility] note* Diagnosis Wellness examination- Primary Encounter for screening mammogram for breast cancer Encounter for immunization Need for other specified prophylactic vaccination against single bacterial disease Lipid screening Screening for lipoid disorders Screening for deficiency anemia Screening for other and unspecified deficiency anemia documented in this encounter [facility] note* Diagnosis Encounter for screening mammogram for breast cancer documented in this encounter [facility] note* Diagnosis Onset Date Resolution Status Admit Date Pharyngitis, acute acute Septem 2024 10:57am [facility] Work Phone: Hospital Discharge instructions [...] doctor if not improving or return if worse.[facility] Work Phone: Reason for referral (narrative)* Diagnostic Procedure Only (Routine) - Pending Review Specialty Diagnoses / Procedures Referred By Zhao soliman Referred To Contact [facility] Diagnoses Encounter for screening mammogram for malignant neoplasm of breast Procedures SURJIT SCREENING SCREENING MAMMOGRAPHY BI 2-VIEW BREAST INC Johan Castillo MD [address] [place] [address] [facility] [address] [place] [address] Referral ID Status Reason Start Date Expiration Date Visits Requested Visits Authorized [id number] Pending Review Auto-Generat ed Referral 09/06/2022 10/06/2023 1 1 [facility] for referral (narrative)* Diagnostic Procedure Only (Routine) - Pending Review Specialty Diagnoses / Procedures Referred By Contac t Referred To Contact [facility] Diagnoses Abnormal mammogram Procedures US BREAST LTD RIGHT US BREAST UNI REAL TIME WITH IMAGE LIMITED Johan Chavez MD [address] [place] [address] [facility] [address] [place] [phone] Referral ID Status Reason Start Date Expiration Date Visits Requested Visits Authorized [id number] Pending Review Auto-Generat ed Referral 09/26/2022 10/26/2023 1 1 * Diagnostic Procedure Only (Routine) - Pending Review Specialty Diagnoses / Procedures Referred By Zhao t Referred To Contact [facility] Diagnoses Abnormal mammogram Procedures SURJIT DIAGNOSTIC RIGHT DIAGNOSTIC MAMMOGRAPHY COMPUTER-AIDED DETCJ UNI Johan Chavez MD [address] [place] [address] [facility] [address] [place] [phone] Referral ID Status Reason Start Date Expiration Date Visits Requested Visits Authorized [id number] Pending Review Auto-Generat ed Referral 09/26/2022 10/26/2023 1 1 [facility] for referral (narrative)* Diagnostic Procedure Only (Routine) - Pending Review Specialty Diagnoses / Procedures Referred By Zhao t Referred To Contact [facility] Diagnoses Encounter for screening mammogram for breast cancer Procedures SURJIT SCREENING W MIRTA SCREENING DIGITAL BREAST TOMOSYNTHESIS BI SCREENING MAMMOGRAPHY BI 2-VIEW BREAST INC CAD Johan Chavez MD [address] [place] [address] [facility] [address] [place] [address] Referral ID Status Reason Start Date Expiration Date Visits Requested Visits Authorized [id number] Pending Review Auto-Generat ed Referral 09/05/2023 10/04/2024 1 1 [facility] CenterReason for referral (narrative)No reason for referral information availableFort Wayne CallsFreeCalls Services Work Phone: Reason for visit Narrative* Diagnostic Procedure Only (Routine) - Closed Specialty Diagnoses / Procedures Referred By Contac t Referred To Contact [facility] Diagnoses Encounter for screening mammogram for breast cancer Procedures SURJIT SCREENING W MIRTA SCREENING DIGITAL BREAST TOMOSYNTHESIS BI SCREENING MAMMOGRAPHY BI 2-VIEW BREAST INC CAD Johan Chavez MD [address] [place] [address] [facility] [address] [place] [address] Referral ID Status Reason Start Date Expiration Date V isits Requested Visits Authorized [id number] Closed Financial Clearance Required - Self Pay Patient Cleared - [employer] 09/05/2023 10/04/2024 1 1 [facility] Summary Purpose Family History No Family History Records FoundNo Family History Records FoundNo Family History Records FoundNo Family History Records Found Advance Directives No Advanced Directives Records Found Advance Directive Response Recorded Date/ Time Living Will Yes March 09, 022 8:38am Power of Structural Iron Worker Yes March 09, 2022 8:38am Name of Medical Power of Structural Iron Worker Galen Rodriguezmarilee March 09, 2022 8:38am Advance Directive Response Recorded Date/ Time Living Will Yes April 06 8:10pm Power of Structural Iron Worker Yes April 06, 2023 8:10pm Name of Medical Power of Structural Iron Worker galen gayathri April 06, 2023 8:10pm Chief Complaint and Reason for Visit Chief Complaint N/V Chief Complaint VOMITING Chief Complaint Admit Date SORE THROAT November 19, 2024 10:57am Reason for Visit Admit Date Pharyngitis, acute November 19, 2024 10:57am Additional Source Comments INFORMATION SOURCE (unrecogn ized section and content) DATE CREATED AUTHOR 07/08/2020 [facility] [place] DATE CREATED AUTHOR AUTHOR'S ORGANIZ ATION 11/21/2024 [facility] DATE CREATED AUTHOR AUTHOR'S ORGANIZ ATION 12/19/2024 [facility] DATE CREATED AUTHOR AUTHOR'S ORGANIZ ATION 12/22/2024 [facility] Goals (unrecognized section and content) Goals may [...] or prosecute any alcohol or drug abuse patient.[facility] Medical CenterIn the event this information is protected by the Federal Confidentiality of Alcohol and Drug Abuse Patient Records regulations: The Federal rules restrict any use of the information to criminally investigate or prosecute any alcohol or drug abuse patient.[facility] Medical CenterIn the event this information is protected by the Federal Confidentiality of Alcohol and Drug Abuse Patient Records regulations: The Federal rules restrict any use of the information to criminally investigate or prosecute any alcohol or drug abuse patient.[facility] Medical CenterIn the event this information is protected by the Federal Confidentiality of Alcohol and Drug Abuse Patient Records regulations: The Federal rules restrict any use of the information to criminally investigate or prosecute any alcohol or drug abuse patient.[facility] CenterIn the event this information is protected by the Federal Confidentiality of Alcohol and Drug Abuse Patient Records regulations: The Federal rules restrict any use of the information to criminally investigate or prosecute any alcohol or drug abuse patient.[facility] CenterIn the event this information is protected by the Federal Confidentiality of Alcohol and Drug Abuse Patient Records regulations: The Federal rules restrict any use of the information to criminally investigate or prosecute any alcohol or drug abuse patient.[facility] CenterIn the event this information is protected by the Federal Confidentiality of Alcohol and Drug Abuse Patient Records regulations: The Federal rules restrict any use of the information to criminally investigate or prosecute any alcohol or drug abuse patient.[facility] CenterIn the event this information is protected by the Federal Confidentiality of Alcohol and Drug Abuse Patient Records regulations: The Federal rules restrict any use of the information to criminally investigate or prosecute any alcohol or drug abuse patient.[facility] Medical CenterIn the event this information is protected by the Federal Confidentiality of Alcohol and Drug Abuse Patient Records regulations: The Federal rules restrict any use of the information to criminally investigate or prosecute any alcohol or drug abuse patient.[facility] CenterIn the event this information is protected by the Federal Confidentiality of Alcohol and Drug Abuse Patient Records regulations: The Federal rules restrict any use of the information to criminally investigate or prosecute any alcohol or drug abuse patient.[facility] Medical CenterIn the event this information is protected by the Federal Confidentiality of Alcohol and Drug Abuse Patient Records regulations: The Federal rules restrict any use of the information to criminally investigate or prosecute any alcohol or drug abuse patient.[facility] Medical CenterIn the event this information is protected by the Federal Confidentiality of Alcohol and Drug Abuse Patient Records regulations: The Federal rules restrict any use of the information to criminally investigate or prosecute any alcohol or drug abuse patient.[facility] CenterIn the event this information is protected by the Federal Confidentiality of Alcohol and Drug Abuse Patient Records regulations: The Federal rules restrict any use of the information to criminally investigate or prosecute any alcohol or drug abuse patient.[facility] Reason for Visit (unrecogniz ed section and content) Reason Comments Yearly Exam Wellness CPE Specialty Diagnoses / Procedures Referred By Contac t Referred To Contact Family Medicine / FAMILY MEDICINE Diagnoses Wellness Procedures EST WELL VISIT Self Johan Chavez MD [address] [place] [address] Referral ID Status Reason Start Date Expiration Date V isits Requested Visits Authorized [id number] Closed Financial Clearance Required - Self Pay Patient Cleared - [employer] 09/06/2022 12/05/2022 1 1 Reason Comments Results Mammogram -Additiona l imaging needed Reason Comments Mammogram Result Call Back Reason Comments Results Reason Comments Orders Additional mammogram Reason Comments Orders Reason Comments Wellness Specialty Diagnoses / Procedures Referred By Contac t Referred To Contact [facility] Diagnoses urg Procedures urg Tyler Allen APRN.CERTIFIED ADAPTIVE PHYSICAL EDUCATOR [address] [place] [address] [facility] [address] [place] [address] Referral ID Status Reason Start Date Expiration Date V isits Requested Visits Authorized [id number] Closed OON/Self Pay Override Financial Clearance Required - Self Pay Patient Cleared - Qualified [id number] 04/27/2020 07/25/2020 2 2 Care Teams (unrecognized sec tion and content) 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 Start Date End Date Johan Chavez MD [address] [place] [address] PCP - General Family Medicine 09/01/22 Fausto Gibbons [address] [place] [address] Gastroenterology 09/01/22 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 Johan Chavez MD Family Provider Active Dr. Johan Chavez MD Primary Care Provider Active Team Status: Inactive Member Role Status Dates Dr. Johan Chavez MD Primary Care Provider Active Dr. 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 [facility]. provides no warranty or guarantee of the accuracy or completeness of information in this document.
[2025-03-15 12:49] VITALS: BP 121/75; PULSE 80; RESP 16; TEMP 36.8; O2SAT 100
--- OUTSIDE RECORDS SUMMARY | 2025-03-15 15:22 | XMS RPT_ITS | CCD ---
Author Organization [facility] Care Team Providers Care Barrel Drum Cutter Name Role Phone Fausto Gibbons Unavailable Johan Chavez MD Primary Care Provider Nathaniel CANCINO, Johan Christine Primary Care Provider Fausto Gibbons MD Unavailable oJhan Chavez MD Primary Care Provider Dr. Johan Chavez MD Primary Care Provider Dr. Johan Chavez MD Referring Provider Mosony SORT MANAGER-CScot Attending Provider [phone] Mosony, Scot Attending Unavailable Johan Cahvez Referring Unavailable Johan Chavez Primary Care Unavailable Bernardo Torres Attending Unavailable Johan Chavez Primary Care Unavailable JOHAN CHAVEZ Primary Care Unavailab le JOHAN CHAVEZ Primary Care Unavailab le Medications Current Medications Medication Drug Class(es) Dates Sig (Normalized) Sig (Original) [place] (Nk) (1 source) Start: 11-19-2024 [place] (Nk) A ctive November 19, 2024 12:00am [...] Reporton 0 11-19-2024 Urgent Care Visit Report [facility] [address], [address] [place] [address] OFFICE VISIT Date of Service: 11/19/24 MR#: [id number] Acct: [id number] Name: JACQUELINE SERRA Rep #: [id number] : 1965 Provider: DILLON Winn Age/Sex: 59/F Location: [facility] Status: Signed Intake Vital Signs 02/17/24 13:58 [...] throat feels like its on fire. [facility] Medical History Contact dermatitis due to poison [...] pharyngitis, unspecified 11/19/24 1113 Date Scot Pa SORT MANAGER-C Cosigner Signature: Date (if applicable) CC: Normal [facility] Basic Metabolic Profile (BMP )on 02-17-2024 BUN/CRE 15.9 RATIO Normal 10-20 [facility] Comment on above: Performed By: #### L 100.0100, L500.2500 #### [facility] [address] [place], [address] CA,Total 9.4 mg/dL Normal 8.5-10.1 [facility] Comment on above: Performed By: #### L 100.0100, L500.2500 #### [facility] [address] [place], [address] Chloride [Moles/Vol] 109 mmol/L High 98-107 [facility] Comment on above: Performed By: #### L 100.0100, L500.2500 #### [facility] [address] [place], [address] CO2 [Moles/Vol] 21.0 mmol/L Normal 21.0-32.0 [facility] Comment on above: Performed By: #### L 100.0100, L500.2500 #### [facility] [address] [place], [address] Creatinine [Mass/Vol] 0.82 mg/dL Normal 0.55-1.02 [facility] Comment on above: Result Comment: The validity of the calculated GFR GFRAA in patients over 70 years has not been determined. Clinical correlation is essential. Performed By: #### L 100.0100, L500.2500 #### [facility] [address] [place], [address] ECRCL 77.13 ml/min Normal [facility] Comment on above: Performed By: #### L 100.0100, L500.2500 #### [facility] [address] [place], [address] EST GFR - AA 92 mL/min Normal >60 [facility] Comment on above: Result Comment: Afri can Congolese GFR Calc Performed By: #### L 100.0100, L500.2500 #### [facility] [address] [place], [address] GAP 12 Normal 5-15 [facility] Comment on above: Performed By: #### L 100.0100, L500.2500 #### [facility] [address] [place], [address] GFR/1.73 sq M.predicted among non-blacks MDRD (S/P/Bld) [Vol rate/Area] 76 mL/min/{1.73_m2} Normal >60 [facility] Comment on above: Result Comment: Non- GFR Calc Performed By: #### L 100.0100, L500.2500 #### [facility] [address] [place], [address] Glucose [Mass/Vol] 137 mg/dL High 74-106 [facility] Comment on above: Result Comment: Fast ing Glucose result greater than or equal to 126 mg/dL suggests DIABETES MELLITUS per A.D.A. criteria. Performed By: #### L 100.0100, L500.2500 #### [facility] [address] [place], [address] Potassium [Moles/Vol] 3.7 mmol/L Normal 3.5-5.1 [facility] Comment on above: Performed By: #### L 100.0100, L500.2500 #### [facility] [address] [place], [address] Sodium [Moles/Vol] 141 mmol/L Normal 136-145 [facility] Comment on above: Performed By: #### L 100.0100, L500.2500 #### [facility] [address] [place], [address] Urea nitrogen [Mass/Vol] 13 mg/dL Normal 7-18 [facility] Comment on above: Performed By: #### L 100.0100, L500.2500 #### [facility] [address] [place], [address] CBC W/Diff, Automatedon 12-0 -2023 Absolute Lymph 0.24 X10 3/uL Low 0.83-4.51 [facility] Comment on above: Performed By: #### L 100.0100, L500.2500 #### [facility] [address] [place], [address] Absolute Neut 6.7 X10 3/uL Normal 2.0-7.7 [facility] Comment on above: Performed By: #### L 100.0100, L500.2500 #### [facility] [address] [place], [address] Basophils/100 WBC (Bld) 0.3 % Normal 0-[address] [facility] Comment on above: Performed By: #### L 100.0100, L500.2500 #### [facility] [address] [place], [address] Eosinophils/100 WBC (Bld) 0.3 % Normal 0-5 [facility] Comment on above: Performed By: #### L 100.0100, L500.2500 #### [facility] [address] [place], [address] Erythrocyte distribution width (RBC) [Ratio] 12.6 % Normal 11.6-14.6 [facility] Comment on above: Performed By: #### L 100.0100, L500.2500 #### [facility] [address] [place], [address] Hematocrit (Bld) [Volume fraction] 41.2 % Normal 37-47 [facility] Comment on above: Performed By: #### L 100.0100, L500.2500 #### [facility] [address] [place], [address] Hemoglobin (Bld) [Mass/Vol] 14.2 g/dL Normal 12.0-15.0 [facility] Comment on above: Performed By: #### L 100.0100, L500.2500 #### [facility] [address] [place], [address] IG% 0.300 Normal 0.0-0.9 [facility] Comment on above: Result Comment: IG% - Immature Granulocytes (promyelocytes, myelocytes and metamyelocytes) > 1% indicates that a LEFT SHIFT is Present. Performed By: #### L 100.0100, L500.2500 #### [facility] [address] [place], [address] Lymphocytes/100 WBC (Bld) 3.3 % Low 19-41 [facility] Comment on above: Performed By: #### L 100.0100, L500.2500 #### [facility] [address] [place], [address] MCH (RBC) [Entitic mass] 29.5 pg Normal 27.0-32.0 [facility] Comment on above: Performed By: #### L 100.0100, L500.2500 #### [facility] [address] [place], [address] MCHC (RBC) [Mass/Vol] 34.5 g/dL Normal 32-36 [facility] Comment on above: Performed By: #### L 100.0100, L500.2500 #### [facility] [address] [place], [address] MCV (RBC) [Entitic vol] 85.5 fL Normal 81-[address] [facility] Comment on above: Performed By: #### L 100.0100, L500.2500 #### [facility] [address] [place], [address] Monocytes/100 WBC (Bld) 2.9 % Normal 0-[address] [facility] Comment on above: Performed By: #### L 100.0100, L500.2500 #### [facility] [address] [place], [address] Neutrophils/100 WBC (Bld) 92.9 % High 47-70 [facility] Comment on above: Performed By: #### L 100.0100, L500.2500 #### [facility] [address] [place], [address] Nucleated RBC (Bld) [#/Vol] 0 10*3/uL Normal 0-5 [facility] Comment on above: Performed By: #### L 100.0100, L500.2500 #### [facility] [address] [place], [address] Platelet mean volume (Bld) [Entitic vol] 8.8 fL Normal 6.2-12.0 [facility] Comment on above: Performed By: #### L 100.0100, L500.2500 #### [facility] [address] [place], [address] Platelets (Bld) [#/Vol] 357 10*3/uL Normal 150-450 [facility] Comment on above: Performed By: #### L 100.0100, L500.2500 #### [facility] [address] [place], [address] RBC (Bld) [#/Vol] 4.82 10*6/uL Normal 4.2-5.4 [facility] Comment on above: Performed By: #### L 100.0100, L500.2500 #### [facility] [address] [place], [address] RDW SD 39.1 fl Normal 35.1-43.9 [facility] Comment on above: Performed By: #### L 100.0100, L500.2500 #### [facility] [address] [place], [address] WBC (Bld) [#/Vol] 7.2 10*3/uL Normal 4.4-11.0 [facility] Comment on above: Performed By: #### L 100.0100, L500.2500 #### [facility] [address] [place], [address] Emergency Department Summary on 02-17-2024 Emergency Department Summary [facility] Medical Records Department [address] [place] [address] Emergency Department Summary 02/17/24 MR#: [id number] Acct: [id number] Name: JACQUELINE SERRA Rep #: [id number] : 1965 58 From: Tere SCHILLING PCP: [...] cholecystectomy. She denies any chronic medical conditions. [facility] Medical History Contact dermatitis due [...] denies any (more content not included)... Normal [facility] Absolute lymphocyte countOrd ered By: Arnold Alejandra on 04-06-2023 Lymphocytes Auto (Unsp spec) [#/Vol] 0.25 10*3/uL 0.83-4.51 [facility] Automated lymphocyte count a s percentage of total leukocytesOrdered By: Arnold Alejandra on 04-06-2023 Lymphocytes/100 WBC Auto (Unsp spec) 3.5 % 19-41 [facility] Basophil percentageOrdered B y: Arnold Alejandra on 04-06-2023 Basophil percentage 25-50 SEEN /hpf 0-5 [facility] Basophils/100 WBC (Bld) 0.3 % 0-1 [facility] Chloride [Moles/Vol] 113 mmol/L 98-107 [facility] Eosinophils/100 WBC (Bld) 0.3 % 0-5 [facility] Glucose [Mass/Vol] 120 mg/dL 74-106 [facility] Comment on above: Fasting Glucose resu lt from 100 to 125 mg/dL suggests IMPAIRED HOMEOSTASIS per A.D.A. criteria. Hemoglobin (Bld) [Mass/Vol] 14.2 g/dL 12.0-15.0 [facility] Monocytes/100 WBC (Bld) 2.2 % 0-[address] [facility] Neutrophils (Bld) [#/Vol] 6.7 10*3/uL 2.0-7.7 [facility] Neutrophils/100 WBC (Bld) 93.3 % 47-70 [facility] Potassium [Moles/Vol] 3.4 mmol/L 3.5-5.1 [facility] Sodium [Moles/Vol] 141 mmol/L 136-145 [facility] WBC (Bld) [#/Vol] 7.1 10*3/uL 4.4-11.0 [facility] Bilirubin Test strip Ql (U)O rdered By: Arnold Alejandra on 04-06-2023 Bilirubin Ql (U) 1 mg/dL Negative [facility] Comment on above: COLOR OF URINE MAY A FFECT DIPSTICK RESULTS. Blood manual differential co mment interpretation (narrative result)Ordered By: Arnold Alejandra on 04-06-2023 Manual differential comment Shailesh (Bld) [Interp] SCANNED [facility] Comment on above: LYMPHOPENIA NOTED Determination of erythrocyte mean corpuscular volume (MCV)Ordered By: Arnold Alejandra on 04-06-2023 MCV (RBC) [Entitic vol] 85.8 fL 81-[address] [facility] Erythrocyte distribution wid th ratioOrdered By: Arnold Alejandra on 04-06-2023 Erythrocyte distribution width (RBC) [Ratio] 12.3 % 11.6-14.6 [facility] Erythrocyte distribution wid th standard deviationOrdered By: Arnold Alejandra on 04-06-2023 Erythrocyte distribution width (RBC) [Entitic vol] 38.6 fL 35.1-43.9 [facility] Hematocrit Auto (Bld) [Volum e fraction]Ordered By: Arnold Alejandra on 04-06-2023 Hematocrit (Bld) [Volume fraction] 42.3 % 37-47 [facility] Immature granulocytes/100 WB C Auto (Bld)Ordered By: Arnold Alejandra on 04-06-2023 Immature granulocytes/100 WBC (Bld) 0.400 % 0.0-0.9 [facility] Comment on above: IG% - Immature Granu locytes (promyelocytes, myelocytes and metamyelocytes) > 1% indicates that a LEFT SHIFT is Present. Ketones Test strip Ql (U)Ord ered By: Arnold Alejandra on 04-06-2023 Ketones Ql (U) 150 mg/dl Negative [facility] Comment on above: CRITICAL VALUE *HCRI TICAL VALUE VERIFIED. CALLED TO [id number] Tiffanie Singer.RESULTS READ BACK BY SAME . Laboratory - Chemistry and C hemistry - challengeOrdered By: Arnold Alejandra on 04-06-2023 CO2 [Moles/Vol] 22.0 mmol/L 21.0-32.0 [facility] Urea nitrogen/Creatinine [Mass ratio] 12.8 mg/mg 10- [facility] Laboratory - Hematology and Cell countsOrdered By: Arnold Alejandra on 04-06-2023 MCH (RBC) [Entitic mass] 28.8 pg 27.0-32.0 [facility] MCHC (RBC) [Mass/Vol] 33.6 g/dL - [facility] Nucleated RBC/100 WBC (Bld) [Ratio] 0 % 0-5 [facility] Platelets (Bld) [#/Vol] 376 10*3/uL 150-450 [facility] Laboratory - Microbiology an d Antimicrobial susceptibilityOrdered By: Arnold Alejandra on 04-06-2023 SARS-CoV-2 (COVID-19) RNA NENA+probe Ql (Unsp spec) [facility] Mucus LM Ql (Urine sed)Order ed By: Aronld Alejandra on 04-06-2023 Mucus Ql (Urine sed) RARE /hpf [facility] Nitrite Test strip Ql (U)Ord ered By: Arnold Alejandra on 04-06-2023 Nitrite Ql (U) Negative Negative [facility] No Panel InformationOrdered By: Arnold Alejandra on 04-06-2023 Urine RBC 0-5 SEEN /hpf 0-5 [facility] Estimated Creatinine Clearance Calc 80.14 ml/min [facility] Estimated GFR (MDRD) Amer 87 mL/min >60 [facility] Comment on above: GFR Calc Estimated GFR (MDRD) Non-Af Amer 72 mL/min >60 [facility] Comment on above: Non- GFR Calc Platelet mean volume Denzel-Ec ker (Bld) [Entitic vol]Ordered By: Arnold Alejandra on 04-06-2023 Platelet mean volume (Bld) [Entitic vol] 9.1 fL 6.2-12.0 [facility] Protein Test strip Ql (U)Ord ered By: Arnold Alejandra on 04-06-2023 Protein Ql (U) 30 mg/dl Negative [facility] RBC Auto (Bld) [#/Vol]Ordere d By: Arnold Alejandra on 04-06-2023 RBC (Bld) [#/Vol] 4.93 10*6/uL 4.2-5.4 [facility] Serum or plasma calcium rogerio urement (mass/volume)Ordered By: Arnold Alejandra on 04-06-2023 Calcium [Mass/Vol] 9.5 mg/dL 8.5-10.1 [facility] Serum or plasma choriogonado tropin detectionOrdered By: Arnold Alejandra on 04-06-2023 HCG ( test) Ql Negative [facility] Serum or plasma creatinine m easurement (mass/volume)Ordered By: Arnold Alejandra on 04-06-2023 Creatinine [Mass/Vol] 0.86 mg/dL 0.55-1.02 [facility] Comment on above: The validity of the calculated GFR & GFRAA in patients over 70 years has not been determined. Clinical correlation is essential. Serum or plasma urea nitroge n measurement (mass/volume)Ordered By: Arnold Alejandra on 04-06-2023 Urea nitrogen [Mass/Vol] 11 mg/dL 7-18 [facility] Squamous epithelial cells de tection in urine sediment by light microscopyOrdered By: Arnold Alejandra on 04-06-2023 Epithelial cells.squamous LM Ql (Urine sed) 0-5 SEEN /hpf 5-10 [facility] Thin prep Papanicolaou smear with manual screeningOrdered By: Arnold Alejandra on 04-06-2023 Thin prep Papanicolaou smear with manual screening 6 5-15 [facility] Urine blood detectionOrdered By: Arnold Alejandra on 04-06-2023 RBC Ql (U) Negative Negative [facility] Urine clarityOrdered By: Yeyo Alejandra on 04-06-2023 Clarity (U) Clear Clear [facility] Urine color determinationOrd ered By: Arnold Alejandra on 04-06-2023 Color (U) Yellow Yellow [facility] Urine glucose detectionOrder ed By: Arnold Alejandra on 04-06-2023 Glucose Ql (U) Normal mg/dl Normal [facility] Urine leukocyte esterase det ection by dipstickOrdered By: Arnold Alejandra on 04-06-2023 Leukocyte esterase Test strip Ql (U) 500 /ul Negative [facility] Urine pHOrdered By: Arnold rankin on 04-06-2023 pH (U) 8.0 [pH] 5.0 - 8.0 [facility] Urine sediment bacteria coun t by microscopy (number/high power field)Ordered By: Arnold Alejandra on 04-06-2023 Bacteria LM.HPF (Urine sed) [#/Area] 0 /[HPF] None Seen [facility] Urine specific gravity measu rementOrdered By: Arnold Alejandra on 04-06-2023 Specific gravity (U) [Rel density] 1.015 1.002-1.030 [facility] Urine urobilinogen measureme ntOrdered By: Arnold Alejandra on 04-06-2023 Urobilinogen Ql (U) Normal mg/dl Normal [facility] Absolute lymphocyte counton 03-09-2022 Lymphocytes Auto (Unsp spec) [#/Vol] 0.31 10*3/uL 0.83-4.51 [facility] Work Phone: Basophil percentageon 2021 Basophils/100 WBC (Bld) 0.3 % 0-1 [facility] Work Phone: Chloride [Moles/Vol] 108 mmol/L 98-107 [facility] Work Phone: Eosinophils/100 WBC (Bld) 0.0 % 0-5 [facility] Work Phone: [phone] Glucose [Mass/Vol] 129 mg/dL 74-106 [facility] Work Phone: Comment on above: Fasting Glucose resu lt greater than or equal to 126 mg/dL suggests DIABETES MELLITUS per A.D.A. criteria. Neutrophils (Bld) [#/Vol] 2.7 10*3/uL 2.0-7.7 [facility] Work Phone: Neutrophils/100 WBC (Bld) 82.3 % 47-70 [facility] Work Phone: Potassium [Moles/Vol] 3.7 mmol/L 3.5-5.1 Ross ster [facility] Work Phone: Sodium [Moles/Vol] 139 mmol/L 136-145 [facility] Work [facility]: WBC (Bld) [#/Vol] 3.3 10*3/uL 4.4-11.0 [facility] Work Phone: Blood erythrocytes count (nu mber/volume)on 03-09-2022 RBC (Bld) [#/Vol] 4.47 10*6/uL 4.2-5.4 [facility] Work Phone: Blood hemoglobin measurement (mass/volume)on 03-09-2022 Hemoglobin (Bld) [Mass/Vol] 13.0 g/dL 12.0-15.0 [facility] Work Phone: Blood lymphocytes/100 leukoc yteson 03-09-2022 Lymphocytes/100 WBC (Bld) 9.3 % 19-41 [facility] Work Phone: Blood monocytes/100 leukocyt eson 03-09-2022 Monocytes/100 WBC (Bld) 8.1 % 0-[address] [facility] Work Phone: Blood platelet mean volumeon 03-09-2022 Platelet mean volume (Bld) [Entitic vol] 8.8 fL 6.2-12.0 [facility] Work Phone: Determination of erythrocyte mean corpuscular volume (MCV)on 03-09-2022 MCV (RBC) [Entitic vol] 88.8 fL 81-[address] [facility] Work Phone: Hematocrit Auto (Bld) [Volum e fraction]on 03-09-2022 Hematocrit (Bld) [Volume fraction] 39.7 % 37-47 [facility] Work Phone: Laboratory - Chemistry and C hemistry - challengeon 12-22-2022 CO2 [Moles/Vol] 27.0 mmol/L 21.0-32.0 [facility] Work Phone: Urea nitrogen/Creatinine [Mass ratio] 9.1 mg/mg 10-20 [facility] Work Phone: Laboratory - Hematology and Cell countson 03-09-2022 Erythrocyte distribution width (RBC) [Entitic vol] 40.5 fL 35.1-43.9 [facility] Work Phone: Erythrocyte distribution width (RBC) [Ratio] 12.4 % 11.6-14.6 [facility] Work Phone: Immature granulocytes/100 WBC (Bld) 0.000 % 0.0-0.9 [facility] Work Phone: Comment on above: IG% - Immature Granu locytes (promyelocytes, myelocytes and metamyelocytes) > 1% indicates that a LEFT SHIFT is Present. MCH (RBC) [Entitic mass] 29.1 pg 27.0-32.0 [facility] Work Phone: Nucleated RBC/100 WBC (Bld) [Ratio] 0 % 0-5 [facility] Work Phone: MCHC Auto (RBC) [Mass/Vol]on 03-09-2022 MCHC (RBC) [Mass/Vol] 32.7 g/dL 32-36 [facility] Work Phone: No Panel Informationon 03-09 Estimated Creatinine Clearance Calc 75.46 ml/min [facility] Work Phone: Estimated GFR (MDRD) Amer 99 mL/min >60 [facility] Work Phone: Comment on above: GFR Calc Estimated GFR (MDRD) Non-Af Amer 82 mL/min >60 [facility] Work Phone: Comment on above: Non- GFR Calc Platelets bldon 03-09-2022 Platelets (Bld) [#/Vol] 253 10*3/uL 150-450 [facility] Work Phone: Serum or plasma calcium rogerio urement (mass/volume)on 03-09-2022 Calcium [Mass/Vol] 8.9 mg/dL 8.5-10.1 [facility] Work Phone: Serum or plasma creatinine m easurement (mass/volume)on 03-09-2022 Creatinine [Mass/Vol] 0.77 mg/dL 0.55-1.02 Cody gomez [facility] Work Phone: Comment on above: The validity of the calculated GFR & GFRAA in patients over 70 years has not been determined. Clinical correlation is essential. Serum or plasma urea nitroge n measurement (mass/volume)on 03-09-2022 Urea nitrogen [Mass/Vol] 7 mg/dL 7-18 [facility] Work Phone: Thin prep Papanicolaou smear with manual screeningon 03-09-2022 Thin prep Papanicolaou smear with manual screening 4 5-15 [facility] Work Phone: PAP SMEARon 06-23-2020 Cytopathology procedure, [...] date. Signed Verified/Reviewed by BRIANA KEY 07/05/20 [facility] NAME: JACQUELINE SERRA Pathology and Laboratory Medicine UNIT#: [id number] LOC: QUINTIN [facility] Developer: Liliana Gonzales M.D. [facility] [id number] ROOM/BED: deskwolf : 63 AGE/SEX: 55/F ORD.Johan Foster MD END OF REPORT Normal [facility] [place] XR Foot - right AP and Later al and obliqueon 04-27-2020 IMPRESSION: 1. Large anterior posterior heel spurs 2. Calcific or ossific density projecting along the undersurface of the cuboid on the lateral view could be due to remote trauma. Care Support Representative: JENN Transcribe Date/Time: Apr 27 2020 11:04A Dictated by : MARKO ROMO DO This examination was interpreted and the report reviewed and electronically signed by: MARKO ROMO DO on Apr 27 2020 11:07AM [facility] DIVISION OF RADIOLOGY * * *Final [...] OF RADIOLOGY Provider, [facility] [place] - 04/27/2020 * * *Final Report* * [...] view could be due to remote trauma. Care Support Representative: JENN Transcribe Date/Time: Apr 27 2020 11:04A Dictated by : MARKO ROMO DO This examination was interpreted and the report reviewed and electronically signed by: MARKO ROMO DO on Apr 27 2020 11:07AM EST [facility] Radiology Study observation (narrative) Ricky longoria [facility] XR Foot - right AP and Later al and obliqueOrdered By: [facility]cf Provider on 04-27-2020 [facility] No Panel Information Influenza Types A,B Direct FA (NURIS) Influenzae A [facility] Work Phone: Vital Signs Date Time Vital Sign Value Performing Clinician Facility 11-19-2024 11:08-0400 Body temperature 98.2 [degF] Dr. Johan Chavez MD Work Phone: [facility] 11-19-2024 11:08-0400 Diastolic blood pressure 60 mm[Hg] Dr. Johan Chavez MD Work Phone: [facility] 11-19-2024 11:08-0400 Heart rate 68 /min Dr. Johan Chavez MD Work Phone: [facility] 11-19-2024 11:08-0400 Respiratory rate 16 /min Dr. Johan Chavez MD Work Phone: [facility] 11-19-2024 11:08-0400 SaO2% (BldA) [Mass fraction] 99 % Dr. Johan Chavez MD Work Phone: [facility] 11-19-2024 11:08-0400 Systolic blood pressure 120 mm[Hg] Dr. Johan Chavez MD Work Phone: [facility] 09-05-2023 15:09-0400 Body height 168.9 cm Johan Chavez MD Work Phone: [facility] 09-05-2023 15:09-0400 Body mass index (BMI) [Ratio] 27.66 kg/m2 Johan Chavez MD Work Phone: [facility] 09-05-2023 15:09-0400 Body temperature 97.59 [degF] Johan Chavez MD Work Phone: [facility] 09-05-2023 15:09-0400 Body weight 78.93 kg Johan Chavez MD Work Phone: [facility] 09-05-2023 15:09-0400 Diastolic blood pressure 74 mm[Hg] Johan Chavez MD Work Phone: [facility] 09-05-2023 15:09-0400 Heart rate 68 /min Johan Chavez MD Work Phone: [facility] 09-05-2023 15:09-0400 Respiratory rate 18 /min Johan Chavez MD Work Phone: [facility] 09-05-2023 15:09-0400 SaO2% (BldA) [Mass fraction] 97 % Johan Chavez MD Work Phone: [facility] 09-05-2023 15:09-0400 Systolic blood pressure 122 mm[Hg] Johan Chavez MD Work Phone: [facility] 04-06-2023 22:31-0500 Diastolic blood pressure 74 mm[Hg] [facility] 04-06-2023 22:31-0500 Heart rate 74 /min [facility] 04-06-2023 22:31-0500 Respiratory rate 16 /min [facility] 04-06-2023 22:31-0500 SaO2% (BldA) [Mass fraction] 97 % [facility] 04-06-2023 22:31-0500 Systolic blood pressure 115 mm[Hg] [facility] 04-06-2023 20:10-0500 Body mass index (BMI) [Ratio] 31.6 kg/m2 [facility] 04-06-2023 20:10-0500 Body weight 89.04 kg [facility] 04-06-2023 20:01-0500 Body temperature 97.4 [degF] [facility] 04-06-2023 19:59-0500 Body height 167.64 cm [facility] 09-06-2022 14:19-0400 Body height 168.9 cm Johan Chavez MD Work Phone: [facility] 09-06-2022 14:190400 Body temperature 96.91 [degF] Johan Chavez MD Work Phone: [facility] 09-06-2022 14:190400 Body weight 87 kg Johan Chavez MD Work Phone: [facility] 09-06-2022 14:19-0400 Diastolic blood pressure 80 mm[Hg] Johan Chavez MD Work Phone: [facility] 09-06-2022 14:19-0400 Heart rate 76 /min Johan Chavez MD Work Phone: [facility] 09-06-2022 14:19-0400 Respiratory rate 14 /min Johan Chavez MD Work Phone: [facility] 09-06-2022 14:19-0400 SaO2% (BldA) [Mass fraction] 98 % Johan Chavez MD Work Phone: [facility] 09-06-2022 14:19-0400 Systolic blood pressure 110 mm[Hg] Johan Chavez MD Work Phone: [facility] 03-09-2022 12:47-0500 Body temperature 98.3 [degF] [facility] Work Phone: 03-09-2022 12:47-0500 Diastolic blood pressure 75 mm[Hg] [facility] Work Phone: 03-09-2022 12:47-0500 Heart rate 77 /min [facility] Work Phone: 03-09-2022 12:47-0500 Respiratory rate 16 /min [facility] Work Phone: 03-09-2022 12:47-0500 SaO2% (BldA) [Mass fraction] 96 % [facility] Work Phone: 03-09-2022 12:47-0500 Systolic blood pressure 119 mm[Hg] [facility] Work Phone: 03-09-2022 08:30-0500 Body height 167.64 cm [facility] Work Phone: 03-09-2022 08:30-0500 Body mass index (BMI) [Ratio] 32.4 kg/m2 [facility] Work Phone: 03-09-2022 08:30-0500 Body weight 91.13 kg [facility] Work Phone: Encounters Encounter Date Encounter Type Care Provider Facility Start: 12-16-2024 End: 12-16-2024 ambulatory JOHAN CHAVEZ Facility:[facility] Start: 11-19-2024 End: 11-19-2024 Patient encounter procedure Scot Kipsony SORT MANAGER-C -[facility] Work Phone: Start: 11-19-2024 End: 11-19-[address] Johan Chavez MD Work Phone: [facility] Start: 02-17-2024 End: 02-18-2024 Patient encounter procedure [facility] Provider [facility] Department Start: 02-17-2024 End: 02-17-2024 Emergency department patient visit Bernardo Torres Facility:[facility] Start: 01-02-2024 End: 01-02-2024 ambulatory JOHAN CHAVEZ Facility:[facility] Start: 10-04-2023 Documentation procedure Mammog melquiades Coordinator [facility] Department Start: 10-04-2023 Letter encounter Mammography Coordinator [facility] Department Start: 10-03-2023 End: 10-03-2023 Subsequent hospital visit by physician Screen Mammo [facility] M[facility] Comment on above: Encounter for screen ing mammogram for breast cancer [Z12.31] Start: 09-05-2023 End: 09-05-2023 Patient encounter status Johan Chavez MD Work Phone: [facility] Start: 09-05-2023 End: 09-05-2023 Periodic preventive med est patient 40-64yrs Johan Chavez MD Work Phone: [facility] Comment on above: Wellness examination (Primary Dx); Encounter for screening mammogram for breast cancer; Encounter for immunization; Lipid screening; Screening for deficiency anemia Start: 04-06-2023 End: 04-06-2023 [facility] Start: 09-26-2022 Telephone encounter Johan Chavez MD Work Phone: [facility] Comment on above: Orders (Additional m ammogram) Orders Start: 09-25-2022 ambulatory Johan Adams MD Work Phone: [facility] Comment on above: Mammogram Start: 09-25-2022 Telephone encounter Johan Chavez MD Work Phone: [facility] Comment on above: Results (Mammogram - Additional imaging needed) Mammogram Result Richi l Back Results Start: 09-22-2022 Documentation procedure Mammog melquiades Coordinator [facility] Start: 09-22-2022 Letter encounter Mammography Coordinator [facility] Department Start: 09-06-2022 End: 09-06-2022 Patient encounter status Johan Chavez MD Work Phone: [facility] Start: 09-06-2022 End: 09-06-2022 Periodic preventive med est patient 40-64yrs Johan Chavez MD Work Phone: [facility] Comment on above: Wellness examination (Primary Dx); Lipid screening; Screening for deficiency anemia; Encounter for screening mammogram for malignant neoplasm of breast; Screening for colon cancer Start: 03-09-2022 End: 03-09-2022 Emergency department patient visit [facility] Start: 04-27-2020 End: 04-27-2020 Subsequent hospital visit by physician [facility] Work Phone: Radiology Comment on above: Pain of right heel [ M79.671] Procedures Date Procedure Procedure Detail Performing Clinician Start: 09-05-2023 Adult depression scr eening assessment X[facility] [place] Work Phone: Start: 04-06-2023 SARS-CoV-2, Influenz a & RSV (PCR) Start: 09-26-2022 Lipid 1996 panel - S kaela or Plasma Johan Chavez MD Work Phone: Start: 09-22-2022 Mammography Johan corbett MD Work Phone: Start: 04-27-2020 Radex foot complete minimum 3 views Chad Singer COMPUTER SYSTEMS INFORMATION DIRECTOR.HEALTHCARE FACILITY ADMINISTRATOR Work Phone: Influenza Types A,B Direct FA ([facility]) Plan of Treatment Date Care Activity Detail Author Start: 09-04-2033 Urine microalbumin profile DTaP,Tdap,Td Vaccine (2 - Td or Tdap) [facility] Start: 09-27-2027 Lipid panel Lipid Screening [facility] Start: 09-27-2027 LIPID SCREEN LIPID SCREEN [facility] Start: 09-26-2025 DIABETES SCREEN [facility]CREEN [facility] Start: 09-26-2025 Diabetes Screening Diabetes Screenin g [facility] Start: 09-20-2025 COLOGUARD (FIT-DNA) COLOGUARD (FIT-D NA) [facility] Start: 09-20-2025 COLORECTAL CANCER SCREENING COLORECTAL CANCER SCREENING [facility] Start: 09-20-2025 Screening for malign ant neoplasm of colon [facility] Start: 06-23-2025 PAP TESTING PAP TESTING [facility] Start: 10-02-2024 Screening for malign ant neoplasm of breast Mammogram Screening [facility] Start: 09-04-2024 Anxiety Screening Anxiety Screening [facility] Start: 09-04-2024 Depression Screening Depression Scre ening [facility] Start: 11-18-2023 Covid-19 Vaccine () Covid-19 Vaccine () [facility] Start: 11-18-2023 Influenza vaccination C [facility] Start: 09-23-2023 Mammography MAMMOGRAM [facility] Start: 09-23-2023 Screening for malign ant neoplasm of breast Mammogram Screening [facility] Start: 09-05-2023 End: 12-05-2023 CBC W Auto Differential panel - Blood COMPLETE BLOOD COUNT AND DIFFERENTIAL Lab Routine Screening for deficiency anemia Expected: 09/05/2023, Expires: 12/05/2023 [facility] Comment on above: Expected: 09/05/2023 , Expires: 12/05/2023 Start: 09-05-2023 End: 12-05-2023 Comprehensive metabolic 2000 panel - Serum or Plasma COMPREHENSIVE METABOLIC PANEL Lab Routine Wellness examination Expected: 09/05/2023, Expires: 12/05/2023 [facility] Comment on above: Expected: 09/05/2023 , Expires: 12/05/2023 Start: 09-05-2023 End: 12-05-2023 Lipid 1996 panel - Serum or Plasma LIPID PANEL BASIC Lab Routine Lipid screening Expected: 09/05/2023, Expires: 12/05/2023 [facility] Comment on above: Expected: 09/05/2023 , Expires: 12/05/2023 Start: 06-24-2023 Screening for malign ant neoplasm of cervix Cervical Cancer Screening [facility] Start: 11-17-2022 Covid-19 Vaccine ( season) Covid-19 Vaccine () [facility] Start: 11-17-2022 Influenza vaccination [facility] Start: 09-06-2022 End: 11-06-2022 CBC W Auto Differential panel - Blood CBC + DIFF Lab Routine Screening for deficiency anemia Expected: 09/06/2022, Expires: 11/06/2022 [facility] Work Phone: Comment on above: Expected: 09/06/2022 , Expires: 11/06/2022 Start: 09-06-2022 End: 11-06-2022 Comprehensive metabolic 2000 panel - Serum or Plasma COMP METABOLIC PANEL Lab Routine Wellness examination Expected: 09/06/2022, Expires: 11/06/2022 [facility] Work Phone: Comment on above: Expected: 09/06/2022 , Expires: 11/06/2022 Start: 09-06-2022 End: 11-06-2022 Lipid 1996 panel - Serum or Plasma LIPID PANEL BASIC Lab Routine Lipid screening Expected: 09/06/2022, Expires: 11/06/2022 [facility] Work Phone: Comment on above: Expected: 09/06/2022 , Expires: 11/06/2022 Start: 03-09-2022 [facility] Work Phone: Start: 04-18-2021 COVID-19 VACCINE (4 - Booster for Pfizer series) COVID-19 VACCINE (4 - Booster for Pfizer series) [facility] Start: 04-18-2021 COVID-19 VACCINE (4 - Pfizer series) COVID-19 VACCINE (4 - Pfizer series) [facility] Start: 2014 SHINGRIX VACCINE (1 of 2) SHINGRIX VACCINE (1 of 2) [facility] Start: 2009 COLOGUARD (FIT-DNA) COLOGUARD (FIT-D NA) [facility] Start: 2009 Colonoscopy COLONOSCOPY [facility] Start: 2009 COLORECTAL CANCER SCREENING COLORECTAL CANCER SCREENING [facility] Start: [address] COLONOGRAPHY [facility] Start: 2009 DIABETES SCREEN DIABETES SCREEN [facility] Start: 2009 FECAL OCCULT BLOOD FECAL OCCULT BLOO D [facility] Start: 2009 LIPID SCREEN LIPID SCREEN [facility] Start: 2009 Screening for malign ant neoplasm of colon [facility] Start: 2009 SIGMOIDOSCOPY SIGMOIDOSCOPY [facility] Start: 2004 Mammography MAMMOGRAM [facility] Start: 1994 HPV TESTING HPV TESTING [facility] Start: 1983 Urine microalbumin profile DTAP,TDAP,TD (1 - Tdap) [facility] Start: 1982 HIV SCREENING HIV SCREENING [facility] Start: 1982 HIV screening HIV Screening [facility] COLOGUARD COLOGUARD Lab Ro utine Screening for colon cancer Ordered: 09/06/2022 [facility] Work Phone: Comment on above: Ordered: 09/06/2022 End: 10-04-2024 DBT Breast - bilateral screening SURJIT SCREENING W MIRTA Radiology Routine Encounter for screening mammogram for breast cancer 1 Occurrences starting 09/05/2023 until 10/04/2024 [facility] Work Phone: Comment on above: 1 Occurrences starti ng 09/05/2023 until 10/04/2024 DBT Breast - bilater al screening SURJIT SCREENING W MIRTA Radiology Routine Encounter for screening mammogram for breast cancer 10/03/2023 1:09 PM EDT [facility] Work Phone: End: 10-26-2023 SURJIT DIAGNOSTIC RIGHT SURJIT DIAGNOSTIC RIGHT Radiology Routine Abnormal mammogram 1 Occurrences starting 09/26/2022 until 10/26/2023 [facility] Work Phone: Comment on above: 1 Occurrences starti ng 09/26/2022 until 10/26/2023 End: 10-06-2023 SURJIT SCREENING SURJIT SCREENING Radiology Routine Encounter for screening mammogram for malignant neoplasm of breast 1 Occurrences starting 09/06/2022 until 10/06/2023 [facility] Work Phone: Comment on above: 1 Occurrences starti ng 09/06/2022 until 10/06/2023 Patient Education [facility] Work Phone: Patient referral [facility] Work Phone: End: 10-26-2023 US BREAST LTD RIGHT US BREAST LTD RIGHT Radiology Routine Abnormal mammogram 1 Occurrences starting 09/26/2022 until 10/26/2023 [facility] Work Phone: Comment on above: 1 Occurrences starti ng 09/26/2022 until 10/26/2023 [facility] Immunizations Immunization Date Immunization Notes Care Provider Fa [facility] 09-05-2023 tetanus toxoid, redu hiral diphtheria toxoid, and acellular pertussis vaccine, adsorbed Johan Chavez MD Work Phone: [facility] 02-21-2021 Covid (Pfizer) [facility] 06-24-2020 Covid (Pfizer) [facility] 06-03-2020 Covid (Pfizer) [facility] 02-05-2020 Influenza, injectabl e, Madin Phyllis Canine Kidney, preservative free, quadrivalent Johan Chavez MD Work Phone: [facility] 02-05-2020 influenza virus vaccine, unspecified formulation Johan Chavez MD Work Phone: [facility] 11-04-2004 hepatitis A and hepatitis B vaccine Johan Chavez MD Work Phone: [facility] 05-17-2004 hepatitis A and hepatitis B vaccine Johan Chavez MD Work Phone: [facility] 04-01-2004 hepatitis A and hepatitis B vaccine Johan Chavez MD Work Phone: [facility] Payers Date Payer Category Payer Self-pay [id number] 2024 Unknown [id number] 2022 Unknown JAIN SELF P AY JAIN SELF PAY GENERIC [id number] 2022-Present Other [id number] 2011 Unknown [id number] Unknown [id number] Unknown [id number] Social History Date Type Detail Facility Start: 03-09-2022 End: 04-06-2023 Tobacco smoking status NHIS Unknown if ever smoked [facility] Start: 07-22-2020 None [facility] Start: 07-22-2020 Homeless [facility] Start: 07-22-2020 Non-smoker [facility] Start: 1965 Sex Assigned At Female [facility] Start: 09-06-2022 End: 02-17-2024 Tobacco smoking status NHIS Never smoked tobacco [facility] History of tobacco use Passive smoker [facility] Start: 04-27-2020 End: 09-06-2022 Tobacco use and exposure Smokeless tobacco non-user [facility] Start: 09-06-2022 End: 09-05-2023 Alcohol intake Ex-drinker (finding) [facility] Start: 09-06-2022 History SDOH Alcohol Frequency 1 [facility] Start: 09-06-2022 History SDOH Alcohol Std Drinks 0 [facility] Start: 09-06-2022 History SDOH Social Connections Phone 5 [facility] Start: 09-06-2022 History SDOH Social Connections Get Together 2 [facility] Start: 09-06-2022 History SDOH Social Connections Taoism 3 [facility] Start: 09-06-2022 History SDOH Physical Activity MPS 12 [facility] Start: 09-06-2022 Education 21 [facility] Start: 1965 Sex Assigned At Not on file [facility] Start: 09-06-2022 End: 09-05-2023 History of Social function [facility] Start: 09-06-2022 End: 09-05-2023 Social connection and isolation panel [facility] Do you belong to any clubs or organizations such as buddhist groups, Novaposts, fraternal or athletic groups, or school groups? Yes [facility] Are you now , , , , never or living with a partner? [facility] How often to you hav e a drink containing alcohol? Never [facility] How many standard dr inks containing alcohol do you have on a typical day? Patient does not drink [facility] Do you feel stress - tense, restless, nervous, or anxious, or unable to sleep at night because your mind is troubled all the time - these days [OSQ] Not at all [facility] (I/We) worried yamila er (my/our) food would run out before (I/we) got money to buy more. Never true [facility] In the past 12 month s, was there a time when you were not able to pay the mortgage or rent on time? No [facility] Start: 09-06-2022 Gender identity Identifies as female gender (finding) [facility] Start: 09-06-2022 Sexual orientation Heterosexual (finding) [facility] Start: 04-27-2020 Alcoholic beverage intake Not Asked [facility] Start: 03-28-2020 End: 04-27-2020 Exposure to SARS-CoV-2 (event) Not sure [facility] Clinical Notes 04-27-2020 to 11-19-2024 Note Date & Type Note Facility 11-19-2024 Progress note [facility] 11-19-2024 Progress note Note Date/Time November 19, 2024 11:13am [facility] [address], [address] [place] [address] OFFICE VISIT Date of Service: 11/19/24 MR#: [id number] Acct: [id number] Name: JACQUELINE SERRA Rep #: [id number] : 1965 Provider: DILLON Winn Age/Sex: 59/F Location: [facility] Status: Signed Intake Vital Signs 02/17/24 13:58 [...] throat feels like its on fire. [facility] Medical History Contact dermatitis due to poison [...] Cosigner Signature: Date (if applicable) CC: ~ [place] [employer] Work Phone: [phone]) 689-212008-26-2025 NotePatient Outreach (FAMMAS) JACQUELINE SERRA ([id number]) 1965 F Date Time Provider Department 11/11/24 JOHAN CHAVEZ During your visit today, we recorded the following information about you: Allergies As of Date: 11/11/2024 (No Known Allergies) Date Reviewed: 09/05/2023 Reviewed by: Deidra Rush LPN - Fully Assessed Visit Diagnosis:Encounter for screening mammogram for breast cancer [Z12.31] Order(s):SURJIT SCREENING W MIRTA [[id number]] Order #: [id number] FUTURE Problem List As Of Date 11/11/2024 Noted Resolved Neutropenia [D70.9] 07/22/2009 Anemia [D64.9] 07/22/2009 Chronic cholecystitis with calculus [K80.10] 10/14/2012 Allergic conjunctivitis [H10.10] 03/10/2023 Diagnosed: 03/10/2023 Migraine headaches [G43.909] 01/09/2017 Diagnosed: 03/10/2023 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 Serra, We are pleased to [...] report will be kept on file at [facility] as part of your permanent medical record and are available for your continuing care. Thank you for allowing us to help in meeting your health care needs. Sincerely, Dr. Varner Interpreting Radiologist [facility] (Normal over 40) [facility]07-18-2024 Miscellaneous Notes* Letter - Coordinator, Mammography - 10/04/2023 12:06 PM EDT October 04, 2023 PID: [id number] Jacqueline NiviaCaro Serra [id number] [id number] Dear Ms. Serra, We are pleased to [...] report will be kept on file at [facility] as part of your permanent medical record and are available for your continuing care. Thank you for allowing us to help in meeting your health care needs. Sincerely, Dr. Varner Interpreting Radiologist [facility] (Normal over 40) documented in this encounterCleveland [id number] History of Present illness Narrative* Debbie Francois [...] PATIENT PRESENTS WITH AN IMPLANTABLE OR ATTACHED ZONING ADMINISTRATOR: No RADIOLOGY DEPARTMENT: Mammography PERIPHERAL IV DATA: Not applicable SIGNED BY: Venu Hernandez October 03, 2023 11:35 AM documented in this encounterOhio[facility] Hospital06-19-2024 History of Present illness Narrative* Johan Chavez [...] 05, 2023 3:34 PM documented in this encounterOhiohealth Dublin [facility] Hospital01-19-2024 Discharge summary Author Arnold Alejandra [facility] April 06, 2023 10:24pm Note Date/Time April 06, 2023 8 :33pm [facility] Medical Records Department [address] [place] [address] Emergency Department Summary 04/06/23 MR#: [id number] Acct: [id number] Name: JACQUELINE SERRA Rep #:[id number] : 1965 57 From: Arnold Alejandra DO [...] tested for anything and recovered without testing. [facility] Medical History Allergic conjunctivitis Contact [...] 93.3 H Lymph % (Auto) 3.5 L Lanier % (Auto) 2.2 Eos % (Auto) 0.3 [...] Clarity Clear Urine pH 8.0 Ur Specific [place] 1.015 Urine Protein 30 H Urine Glucose [...] your Primary Care Provider. Call [facility] ([phone]) or report to the closest Emergency Room. Call 911 if necessary. 04/06/232223 <Electronically signed by Arnold Alejandra DO> Cosigner Signature (if applicable): CC: Dr. Johan Chavez MD ~ Signed [facility] Work Phone: 1(383) 517-336307-11-2023 Miscellaneous Notes* Telephone Encounter - Johan Chavez MD - 09/26/2022 1:10 PM EDT ordered * Telephone Encounter - Deidra Rush LPN - 09/26/2022 9:31 AM EDT Mammogram from 09-22-2022 needs additional imaging. Patient had Mammogram completed at [facility]. They stated they will not do testing until order received by you. Deidra Rush LPN September 26, 2022 9:33 AM documented in this encounterOhiohealth Dublin [facility] Hospital07-11-2023 Miscellaneous Notes* Telephone Encounter - Johan Chavez MD - 09/26/2022 1:09 PM EDT signed * Telephone Encounter - Deidra Rush LPN - 09/26/2022 11:01 AM EDT Please sign attached orders for patient to receive additional imaging from Mammogram results Patient requesting orders to be sent to [facility] This nurse informed patient that orders will be sent once signed by Dr. Chavez Patient verbalized understanding, thanked nurse for information. Deidra Rush LPN September 26, 2022 11:45 AM documented in this encounterOhiohealth Dublin [facility] Hospital07-11-2023 Miscellaneous Notes* Telephone Encounter - Jacqueline Cole LPN - 09/26/2022 11:34 AM EDT Katiana from [facility] called asking for additional orders due to abnormal mammogram. [facility] does not have standing orders. Orders needed as follows: Right diagnostic mammogram Right breast [employer] Katiana call back # [phone] Katiana said she can get the order from the computer chart,however,order should be faxed as well to insure they have what they need Thank you, Jacqueline Cole LPN September 26, 2022 11:33 AM documented in this encounterOhiohealth Dublin [facility] Hospital07-10-2023 Miscellaneous Notes* Telephone Encounter - Deidra Rush [...] EDT ----- Cologuard negative documented in this encounterOhiohealth Dublin Methodist Hospital07-10-2023 Miscellaneous Notes* Telephone Encounter - Jesus Turner - 09/25/2022 3:42 PM EDT Patient called to schedule callback mammo documented in this encounterOhiohealth Dublin [facility] Hospital07-10-2023 Miscellaneous Notes* Telephone Encounter - Jacqueline Cole [...] has additional imaging scheduled documented in this encounterOhiohealth Dublin Methodist Hospital07-07-2023 Miscellaneous Notes* Letter - Coordinator, Mammography - 09/22/2022 10:50 AM EDT September 25, 2022 PID: [id number] Jacqueline Serra [id number] [id number] Dear Ms. Serra, Your recent breast imaging exam on 09/22/2022 showed a possible finding that requires additional imaging studies for a complete evaluation. Most such findings are probably benign (not cancer). If you have a healthcare provider who ordered/prescribed your screening mammogram: Please call [phone] or [phone] to schedule an appointment for your additional [...] and reports are kept on file at [facility] as part of your permanent medical record, and are available for your continuing care. Thank you for allowing us to help in meeting your health care needs. Sincerely, Dr. Varner Interpreting Radiologist [facility] (Additional imaging) documented in this encounterOhiohealth Dublin Methodist Hospital06-21-2023 History of Present illness Narrative* Johan Chavez MD - 09/06/2022 3:05 PM EDT This note was created using [employer]. Subjective Jacqueline Serra is a 57 year [...] 06, 2022 2:12 PM documented in this encounterOhiohealth Dublin [facility] Hospital02-09-2021 History of Present illness Narrative* Odessa Ackerman [...] 27, 2020 10:51 AM documented in this encounterEast [facility] noteNo assessment information availableWSt. Elizabeth Hospital Work Phone: Evaluation note* Diagnosis Wellness examination- Primary Lipid screening Screening for lipoid disorders Screening for deficiency anemia Screening for other and unspecified deficiency anemia Encounter for screening mammogram for malignant neoplasm of breast Other screening mammogram Screening for colon cancer Special screening for malignant neoplasms, colon documented in this encounter [facility]* Diagnosis Abnormal mammogram- Primary Abnormal mammogram, unspecified documented in this encounter [facility] note* Diagnosis Wellness examination- Primary Encounter for screening mammogram for breast cancer Encounter for immunization Need for other specified prophylactic vaccination against single bacterial disease Lipid screening Screening for lipoid disorders Screening for deficiency anemia Screening for other and unspecified deficiency anemia documented in this encounter [facility] note* Diagnosis Encounter for screening mammogram for breast cancer documented in this encounter [facility] note* Diagnosis Onset Date Resolution Status Admit Date Pharyngitis, acute acute Septem 2024 10:57am [facility] Work Phone: Hospital Discharge instructions [...] doctor if not improving or return if worse.[facility] Work Phone: Reason for referral (narrative)* Diagnostic Procedure Only (Routine) - Pending Review Specialty Diagnoses / Procedures Referred By Zhao soliman Referred To Contact [facility] Diagnoses Encounter for screening mammogram for malignant neoplasm of breast Procedures SURJIT SCREENING SCREENING MAMMOGRAPHY BI 2-VIEW BREAST INC Johan Castillo MD [address] [place] [address] [facility] [address] [place] [address] Referral ID Status Reason Start Date Expiration Date Visits Requested Visits Authorized [id number] Pending Review Auto-Generat ed Referral 09/06/2022 10/06/2023 1 1 [facility] for referral (narrative)* Diagnostic Procedure Only (Routine) - Pending Review Specialty Diagnoses / Procedures Referred By Contac t Referred To Contact [facility] Diagnoses Abnormal mammogram Procedures US BREAST LTD RIGHT US BREAST UNI REAL TIME WITH IMAGE LIMITED Johan Chavez MD [address] [place] [address] [facility] [address] [place] [phone] Referral ID Status Reason Start Date Expiration Date Visits Requested Visits Authorized [id number] Pending Review Auto-Generat ed Referral 09/26/2022 10/26/2023 1 1 * Diagnostic Procedure Only (Routine) - Pending Review Specialty Diagnoses / Procedures Referred By Zhao t Referred To Contact [facility] Diagnoses Abnormal mammogram Procedures SURJIT DIAGNOSTIC RIGHT DIAGNOSTIC MAMMOGRAPHY COMPUTER-AIDED DETCJ UNI Johan Chavez MD [address] [place] [address] [facility] [address] [place] [phone] Referral ID Status Reason Start Date Expiration Date Visits Requested Visits Authorized [id number] Pending Review Auto-Generat ed Referral 09/26/2022 10/26/2023 1 1 [facility] for referral (narrative)* Diagnostic Procedure Only (Routine) - Pending Review Specialty Diagnoses / Procedures Referred By Zhao t Referred To Contact [facility] Diagnoses Encounter for screening mammogram for breast cancer Procedures SURJIT SCREENING W MIRTA SCREENING DIGITAL BREAST TOMOSYNTHESIS BI SCREENING MAMMOGRAPHY BI 2-VIEW BREAST INC CAD Johan Chavez MD [address] [place] [address] [facility] [address] [place] [address] Referral ID Status Reason Start Date Expiration Date Visits Requested Visits Authorized [id number] Pending Review Auto-Generat ed Referral 09/05/2023 10/04/2024 1 1 [facility] HospitalReason for referral (narrative)No reason for referral information availableWhitesville [facility] [facility] Work Phone: Reason for visit Narrative* Diagnostic Procedure Only (Routine) - Closed Specialty Diagnoses / Procedures Referred By Contac t Referred To Contact [facility] Diagnoses Encounter for screening mammogram for breast cancer Procedures SURJIT SCREENING W MIRTA SCREENING DIGITAL BREAST TOMOSYNTHESIS BI SCREENING MAMMOGRAPHY BI 2-VIEW BREAST INC CAD Johan Chavez MD [address] [place] [address] [facility] [address] [place] [address] Referral ID Status Reason Start Date Expiration Date V isits Requested Visits Authorized [id number] Closed Financial Clearance Required - Self Pay Patient Cleared - [employer] 09/05/2023 10/04/2024 1 1 [facility] Summary Purpose Family History No Family History Records FoundNo Family History Records FoundNo Family History Records FoundNo Family History Records Found Advance Directives No Advanced Directives Records Found Advance Directive Response Recorded Date/ Time Living Will Yes March 09, 022 8:38am Power of Supply Chain Director Yes March 09, 2022 8:38am Name of Medical Power of Supply Chain Director Galen Rodriguezmarilee March 09, 2022 8:38am Advance Directive Response Recorded Date/ Time Living Will Yes April 06 8:10pm Power of Supply Chain Director Yes April 06, 2023 8:10pm Name of Medical Power of Supply Chain Director galen gayathri April 06, 2023 8:10pm Chief Complaint and Reason for Visit Chief Complaint N/V Chief Complaint VOMITING Chief Complaint Admit Date SORE THROAT November 19, 2024 10:57am Reason for Visit Admit Date Pharyngitis, acute November 19, 2024 10:57am Additional Source Comments INFORMATION SOURCE (unrecogn ized section and content) DATE CREATED AUTHOR 07/08/2020 [facility] [place] DATE CREATED AUTHOR AUTHOR'S ORGANIZ ATION 11/21/2024 [facility] DATE CREATED AUTHOR AUTHOR'S ORGANIZ ATION 12/19/2024 [facility] DATE CREATED AUTHOR AUTHOR'S ORGANIZ ATION 12/22/2024 [facility] Goals (unrecognized section and content) Goals [...] or prosecute any alcohol or drug abuse patient.[facility] HospitalIn the event this information is protected by the Federal Confidentiality of Alcohol and Drug Abuse Patient Records regulations: The Federal rules restrict any use of the information to criminally investigate or prosecute any alcohol or drug abuse patient.[facility] HospitalIn the event this information is protected by the Federal Confidentiality of Alcohol and Drug Abuse Patient Records regulations: The Federal rules restrict any use of the information to criminally investigate or prosecute any alcohol or drug abuse patient.[facility] HospitalIn the event this information is protected by the Federal Confidentiality of Alcohol and Drug Abuse Patient Records regulations: The Federal rules restrict any use of the information to criminally investigate or prosecute any alcohol or drug abuse patient.[facility] HospitalIn the event this information is protected by the Federal Confidentiality of Alcohol and Drug Abuse Patient Records regulations: The Federal rules restrict any use of the information to criminally investigate or prosecute any alcohol or drug abuse patient.[facility] HospitalIn the event this information is protected by the Federal Confidentiality of Alcohol and Drug Abuse Patient Records regulations: The Federal rules restrict any use of the information to criminally investigate or prosecute any alcohol or drug abuse patient.[facility] HospitalIn the event this information is protected by the Federal Confidentiality of Alcohol and Drug Abuse Patient Records regulations: The Federal rules restrict any use of the information to criminally investigate or prosecute any alcohol or drug abuse patient.[facility] HospitalIn the event this information is protected by the Federal Confidentiality of Alcohol and Drug Abuse Patient Records regulations: The Federal rules restrict any use of the information to criminally investigate or prosecute any alcohol or drug abuse patient.[facility] HospitalIn the event this information is protected by the Federal Confidentiality of Alcohol and Drug Abuse Patient Records regulations: The Federal rules restrict any use of the information to criminally investigate or prosecute any alcohol or drug abuse patient.[facility] HospitalIn the event this information is protected by the Federal Confidentiality of Alcohol and Drug Abuse Patient Records regulations: The Federal rules restrict any use of the information to criminally investigate or prosecute any alcohol or drug abuse patient.[facility] HospitalIn the event this information is protected by the Federal Confidentiality of Alcohol and Drug Abuse Patient Records regulations: The Federal rules restrict any use of the information to criminally investigate or prosecute any alcohol or drug abuse patient.[facility] HospitalIn the event this information is protected by the Federal Confidentiality of Alcohol and Drug Abuse Patient Records regulations: The Federal rules restrict any use of the information to criminally investigate or prosecute any alcohol or drug abuse patient.[facility] HospitalIn the event this information is protected by the Federal Confidentiality of Alcohol and Drug Abuse Patient Records regulations: The Federal rules restrict any use of the information to criminally investigate or prosecute any alcohol or drug abuse patient.[facility] Reason for Visit (unrecogniz ed section and content) Reason Comments Yearly Exam Wellness CPE Specialty Diagnoses / Procedures Referred By Contac t Referred To Contact Family Medicine / FAMILY MEDICINE Diagnoses Wellness Procedures EST WELL VISIT Self Johan Chavez MD [address] [place] [address] Referral ID Status Reason Start Date Expiration Date V isits Requested Visits Authorized [id number] Closed Financial Clearance Required - Self Pay Patient Cleared - [employer] 09/06/2022 12/05/2022 1 1 Reason Comments Results Mammogram -Additiona l imaging needed Reason Comments Mammogram Result Call Back Reason Comments Results Reason Comments Orders Additional mammogram Reason Comments Orders Reason Comments Wellness Specialty Diagnoses / Procedures Referred By Contac t Referred To Contact [facility] Diagnoses urg Procedures urg Tyler Allen APRN.HEALTHCARE FACILITY ADMINISTRATOR [address] [place] [address] [facility] [address] [place] [address] Referral ID Status Reason Start Date Expiration Date V isits Requested Visits Authorized [id number] Closed OON/Self Pay Override Financial Clearance Required - Self Pay Patient Cleared - Qualified [id number] 04/27/2020 07/25/2020 2 2 Care Teams (unrecognized sec tion and content) Barrel Drum Cutter Relationship Specialty Start Date End Date Johan Chavez MD [address] [place] [address] PCP - General Family Medicine 09/01/22 Fausto Gibbons [address] [facility] [address] [place] [address] Gastroenterology 09/01/22 Barrel Drum Cutter Relationship Specialty Start Date End Date Johan Chavez MD [address] [place] [address] PCP - General Family Medicine 09/01/22 Fausto Gibbons [address] [facility] [address] [place] [address] Gastroenterology 09/01/22 Barrel Drum Cutter Relationship Specialty Start Date End Date Johan Chavez MD [address] [place] [address] PCP - General Family Medicine 09/01/22 Fausto Gibbons [address] [facility] [address] [place] [address] Gastroenterology 09/01/22 Barrel Drum Cutter Relationship Specialty Start Date End Date Johan Chavez MD [address] [place] [address] PCP - General Family Medicine 09/01/22 Fausto Gibbons [address] [place] [address] Gastroenterology 09/01/22 Barrel Drum Cutter Relationship Specialty Start Date End Date Johan Chavez MD [address] [place] [address] PCP - General Family Medicine 09/01/22 Fausto Gibbons [address] [place] [address] Gastroenterology 09/01/22 Barrel Drum Cutter Relationship Specialty Start Date End Date Johan Chavez MD [address] [place] [address] PCP - General Family Medicine 09/01/22 Fausto Gibbons [address] [place] [address] Gastroenterology 09/01/22 Team Status: Active Member Role Status Dates Dr. Johan Chavez MD Family Provider Active Dr. Johan Chavez MD Primary Care Provider Active Team Status: Inactive Member Role Status Dates Dr. Johan Chavez MD Primary Care Provider Active Dr. Arnold Alejandra DO Emergency Provider Active Barrel Drum Cutter Relationship Specialty Start Date End Date Johan Chavez MD [address] [place] [address] PCP - General Family Medicine 09/01/22 Fausto Gibbons MD [address] [place] [address] Gastroenterology 09/01/22 Barrel Drum Cutter Relationship Specialty Start Date End Date Johan Chavez MD [address] [place] [address] PCP - General Family Medicine 09/01/22 Fausto Gibbons MD [address] [facility] [address] [place] [address] Gastroenterology 09/01/22 Barrel Drum Cutter Relationship Specialty Start Date End Date Johan Chavez MD [address] [place] [address] PCP - General Family Medicine 09/01/22 Fausto Gibbons MD [address] [facility] [address] [place] [address] Gastroenterology 09/01/22 Barrel Drum Cutter Relationship Specialty Start Date End Date Johan [...] BE BASED ON THE PRIMARY CLINICAL RECORDS. [facility] [employer] [facility]. provides no warranty or guarantee of the accuracy or completeness of information in this document.
== END 2025-03-15 13:24 | disposition home or self-care (01) ==
PROVIDERS: PCP Family Medicine; Visit Provider Student in an Organized Health Care Education/Training Program
DX: Z23 Encounter for immunization (principal)
CPT/HCPCS: 90675; 96372